=== PATIENT | female | born 1935 | race Caucasian/White ===

== ENCOUNTER → 2016-11-08 | Outpatient (CLI) | payer BC ==
[~2016-11-08] MED LIST: AMLO5TAB2 PO; ASPI81TA28 PO; CETI10TA84 PO; DVN80 PO; GLC/500 PO; MULTCHW PO; NSNN50 NAE; NXM/40 PO; OMEG12006 PO; PSYL55.43 PO; SIMV20TA2 PO; TPRSR25 PO
[2016-11-08 13:31] LABS: BASO % 0.2 %; BASO ABS # 0.02 K/uL (0-0.2); COMPLETE YES; EOS % 0.4 %; HEMATOCRIT 38.8 % (37-47); IG% 0.1 %; LYMPH % 29.3 %; LYMPH ABS # 2.37 K/uL (1.2-3.4); MEAN CELL VOLUME 83.3 fL (80-100); MEAN CORPUSCULAR HEMOGLOBIN 26.6 pg (25-34); MEAN PLATELET VOLUME 11.2 fL (7.4-10.4); MONO % 6.9 %; NEUT % 63.1 %; PLATELET COUNT 260 K/uL (130-400); RED BLOOD COUNT 4.66 M/uL (4.2-5.4); WHITE BLOOD COUNT 8.08 K/uL (4.8-10.8)
[2016-11-08 13:37] LABS: ESTIMATED AVERAGE GLUCOSE 126 mg/dl; HA1C FLAG Normal (Normal)
[2016-11-08 13:41] LABS: BLOOD UREA NITROGEN 13 mg/dl (7-18); CREATININE 0.95 mg/dl (0.60-1.20)
[2016-11-08 13:51] LABS: THYROID STIMULATING HORMONE 0.731 uIu/ml (0.300-4.500)
[2016-11-08 14:21] LABS: LYME DISEASE AB IGM NEG (NEG)
[2016-11-08 14:24] LABS: LYME DISEASE AB IGG NEG (NEG)
[2016-11-08 23:47] LABS: RAPID PLASMA REAGIN NONREACTIVE (NONREACT)
--- NOTE | 2016-11-14 11:04 | CODING QUERY MEDICAL NECESSITY ---
SUPPORTING DIAGNOSIS NEEDED Dr. Lechuga, A supporting diagnosis is required for the test/procedure performed on this patient in order for us to be reimbursed by the patient's insurance. Please provide a supporting diagnosis for the following test/procedure listed below next to the test name along with your signature. *If there is no additional diagnosis for this patient that would support the following test/procedure please document that below next to the test/procedure. Test(s)/Procedure(s) that require a supporting diagnosis: * ([id number]) B12 VITAMIN LEVEL DIAGNOSIS: DATE OF SERVICE: 11/08/16 Provider Signature: Date: Thank you Ramsey [facility] Information Management Once completed, please kindly fax back to [phone] For questions please call [phone]
== END | disposition home or self-care (01) ==
LOC: C.LABBC 11:03
PROVIDERS: ATTEND Psychiatry & Neurology Neurology
DX: Z00.00 Encounter for general adult medical examination without abnormal findings (principal); E11.9 Type 2 diabetes mellitus without complications; I10 Essential (primary) hypertension; E87.1 Hypo-osmolality and hyponatremia; F09 Unspecified mental disorder due to known physiological condition; R48.2 Apraxia

== ENCOUNTER → 2016-11-10 | Outpatient (CLI) | payer BC ==
[~2016-11-10] MED LIST changes: +GADAVIST IV PRN
--- NOTE | 2016-11-10 11:48 | DIAGNOSTIC IMAGING REPORT ---
MRI OF THE BRAIN WITHOUT AND WITH IV CONTRAST CLINICAL HISTORY: Gait apraxia. COMPARISON STUDY: MRI of the brain April 06, 2016. TECHNIQUE: Utilizing a 1.5 Amina magnet and dedicated coil, multiplanar, multiecho imaging of the brain was performed pre and postcontrast administration. IV administration of 7 mL of Gadavist contrast was uneventful. FINDINGS: There are no areas of restricted diffusion. No acute intracranial hemorrhage, midline shift or mass effect is present. Ventricular system is normal for age. Basilar cisterns are patent. There are no extra-axial collections. Flow-voids for the major intracranial vessels are present. No intracranial mass or pathologic enhancement is present. Multiple white matter T2 hyperintense foci are noted. Minimal progression is noted since prior MRI. The findings suggest small vessel disease. There is mild atrophy. Calvarial signal is maintained. Orbits and sinuses are unremarkable. IMPRESSION: 1. No acute intracranial findings. 2. No intracranial masses or pathologic enhancement. 3. Mild atrophy and moderate small vessel disease. Electronically signed by: Maximo Matthew M.D. 11/10/2016 11:46 AM Dictated Date/Time: 11/10/2016 11:42 AM
== END | disposition home or self-care (01) ==
LOC: C.MRIBC 10:31
PROVIDERS: ATTEND Psychiatry & Neurology Neurology
DX: R48.2 Apraxia (principal)

== ENCOUNTER → 2017-02-01 | Outpatient (CLI) | payer BC ==
[~2017-02-01] MED LIST changes: -GADAVIST IV PRN
[2017-02-01 14:16] LABS: ESTIMATED AVERAGE GLUCOSE 120 mg/dl; HA1C FLAG Normal (Normal)
[2017-02-01 15:02] LABS: BLOOD UREA NITROGEN 14 mg/dl (7-18); BUN/CREATININE RATIO 14.4 (10-20); CALCIUM 9.6 mg/dl (8.5-10.1); CARBON DIOXIDE 27 mmol/L (21-32); CHLORIDE 101 mmol/L (98-107); CREATININE 0.94 mg/dl (0.60-1.20); GLUCOSE 99 mg/dl (70-99); POTASSIUM 4.3 mmol/L (3.5-5.1); SODIUM 134 mmol/L (136-145)
== END | disposition home or self-care (01) ==
LOC: C.LABBC 10:58
PROVIDERS: ATTEND Internal Medicine Geriatric Medicine
DX: E11.9 Type 2 diabetes mellitus without complications (principal); I10 Essential (primary) hypertension

== ENCOUNTER → 2017-04-19 | Outpatient (CLI) | payer BC | END | disposition home or self-care (01) | LOC: C.LAB1850 10:34 | PROVIDERS: ATTEND Obstetrics & Gynecology | DX: N83.209 Unspecified ovarian cyst, unspecified side (principal) ==

== ENCOUNTER → 2017-04-23 | Outpatient (CLI) | payer BC ==
--- NOTE | 2017-04-24 07:43 | MAMMOGRAPHY REPORT ---
BILATERAL DIGITAL SCREENING MAMMOGRAM WITH CAD: 04/23/2017 CLINICAL HISTORY: Routine screening. Patient has no complaints. TECHNIQUE: Bilateral CC and MLO views were obtained. Current study was also evaluated with a Compute r Aided Detection (CAD) system. COMPARISON: Comparison is made to exams dated: 03/30/2016 mammogram, 03/29/2015 mammogram, 04/14/2014 mammogram, 03/27/2014 mammogram, 03/14/2013 mammogram, and 03/12/2012 mammogram - [facility]. BREAST COMPOSITION: There are scattered areas of fibroglandular density in both breasts. FINDINGS: The exam is suboptimal due to inability of the patient to adequately position for the exam , despite assistance from a second cath lab technologist. Within this limitation, there are moder ate vascular calcifications in the breasts, and a stable biopsy marker clip in the left upper outer q uadrant posteriorly. A few scattered benign-appearing microcalcifications. Decreased prominence of a nodular asymmetry in the right breast along the posterior nipple line on the CC view. No new suspi cious mass, architectural distortion or cluster of microcalcifications is seen. IMPRESSION: ACR BI-RADS CATEGORY 2: BENIGN There is no mammographic evidence of malignancy, within the limitations of the exam. A 1 year screeni ng mammogram is recommended. The patient will receive written notification of the results. Approximately 10% of breast cancers are not detected with mammography. A negative mammographic report should not delay biopsy if a clinically suggestive mass is present. Mague Harrison M.D. ay/:04/23/2017 16:48:50 Automation Developer: Sabine CUMMINGS(Carmina)(Gianni)(BD), [facility] letter sent: Normal 1/2 BI-RADS Code: ACR BI-RADS Category 2: Benign
== END | disposition home or self-care (01) ==
LOC: C.MAMM 15:40
PROVIDERS: ATTEND Internal Medicine Geriatric Medicine
DX: Z12.31 Encounter for screening mammogram for malignant neoplasm of breast (principal)

== ENCOUNTER 2017-10-19 14:52 | Emergency (ER) | payer BC ==
[2017-10-19 14:55] VITALS: TEMP 36.6
--- NOTE | 2017-10-19 15:00 | EMERGENCY ROOM VISIT NOTE ---
ED Visit Note First contact with patient: 14:58 I have seen and examined this patient with Tico Valentine and generally agree with the treatment plan as discussed. Problem List Medical Problems: (1) Benign hypertension Status: Chronic (2) Cholecystectomy Status: Resolved (3) Diabetes mellitus Status: Chronic (4) Hemorrhoid Status: Resolved Current/Historical Medications Scheduled Amlodipine Besylate (Norvasc), 5 MG PO DAILY Aspirin (Aspirin Ec), 81 MG PO Q2D Cetirizine (Zyrtec), 10 MG PO DAILY Esomeprazole Magnesium (Nexium), 40 MG PO DAILY Metformin Hcl (Glucophage), 500 MG PO BID Metoprolol Succinate (Metoprolol Succinate ER), 25 MG PO BID Mometasone Furoate (Nasal) (Nasonex), 1 SPRAY KEE DAILY Multiple Vitamins W/ Minerals (Centrum Silver), 1 TAB PO DAILY Obion-3 Fatty Acids (Obion 3), 1 CAP PO QAM Psyllium (Metamucil Powder), 1 PACK PO DAILY Simvastatin (Zocor), 20 MG PO QPM Valsartan (Diovan), 80 MG PO DAILY Allergies Coded Allergies: Amoxicillin (Unverified Allergy, Unknown, diarrhea, 05/04/16) Ciprofloxacin (Verified Adverse Reaction, Unknown, nausea/vomiting, ) Hydrocodone (Verified Adverse Reaction, Unknown, n/v loss of appetite, ) Vital Signs Date Time Temp Pulse Resp B/P (MAP) Pulse Ox O2 Delivery O2 Flow Rate FiO2 10/19/17 14:55 36.6 72 18 151/67 97 Room Air Departure Information Referrals Emiliano Lechuga M.D. (PCP) Patient Instructions My [facility]
[2017-10-19] MEDS ORDERED: CYAN10005 PO (15:27)
[2017-10-19] MEDS ORDERED: FLUT0.15 NAE (15:27)
[2017-10-19] MEDS ORDERED: VALS40TA2 PO (15:27)
[2017-10-19] MEDS ORDERED: CHOL1CAP12 PO (15:27)
[2017-10-19] MEDS ORDERED: ATOR10TA82 PO (15:27)
[2017-10-19] MEDS ORDERED: PANT40TA PO (15:27)
[2017-10-19] MEDS ORDERED: ARTISOL23 MT (15:27)
[2017-10-19] MEDS ORDERED: MULT-116 PO (15:27)
--- NOTE | 2017-10-19 15:38 | DIAGNOSTIC IMAGING REPORT ---
R TIBIA/FIBULA 2 VIEWS ROUTINE, R KNEE 3 VIEWS HISTORY: 82 years-old Female R knee/leg pain acute right knee, tibia and fibula pain COMPARISON: None available TECHNIQUE: 3 views of the right knee with 2 views of the right tibia and fibula FINDINGS: KNEE: The bones appear mildly demineralized. Tricompartmental osteoarthritis, moderate within the medial compartment, mild to moderate patellofemoral and mild lateral compartment disease. Svmjj-an-ktkfgnfq knee joint effusion with mild soft tissue swelling about the knee. No acute fracture or dislocation is identified. Peripheral arterial calcifications are noted. TIBIA/FIBULA: No acute fracture or dislocation. Degenerative changes about the ankle. Moderate soft tissue swelling about the mid and lower leg and ankle. Limited study secondary to oblique positioning on the lateral view. IMPRESSION: 1. Soft tissue swelling without acute fracture or dislocation. 2. Tjffj-ee-mjvuamqh knee joint effusion. The above report was generated using voice recognition software. It may contain grammatical, syntax or spelling errors. Electronically signed by: J Carlos Rosa M.D. 10/19/2017 3:37 PM Dictated Date/Time: 10/19/2017 3:31 PM
--- NOTE | 2017-10-19 16:22 | EMERGENCY ROOM VISIT NOTE ---
History First contact with patient: 14:58 Chief Complaint: LEG PAIN,LEG INJURY Stated Complaint: FT LEG PAIN History of Present Illness The patient is a 82 year old female who presents to the Emergency Room with her with complaints of right knee and leg pain. The patient reports that she was trying to get into a pickup when her right foot slipped, and she fell, twisting her knee. She denies hitting her head, and denies any other injuries to her upper extremities, neck or back. She rates her discomfort a 5 out of 10. The patient denies any prior history of right knee surgeries. Review of Systems 10 system review was performed and was negative except for pertinent positives and negatives as indicated in history of present illness Past Medical/Surgical History Medical Problems: (1) Benign hypertension (2) Cholecystectomy (3) Diabetes mellitus (4) Hemorrhoid Family History Gallbladder disease Heart disease Hypertension Social History Smoking Status: Never Smoker Alcohol Use: none Drug Use: none Marital Status: in relationship Housing Status: lives with significant other Occupation Status: retired Current/Historical Medications Scheduled Artificial Saliva (Mouthkote), 1 SPRAY MT Before Meals Atorvastatin (Lipitor), 10 MG PO HS Cholecalciferol (D3), 400 UNITS PO DAILY Cyanocobalamin (Vitamin B-12), 1,000 MCG PO DAILY Fluticasone Propionate (Nasal) (Flonase Allergy Relief), 1 SPRAY KEE QD@1700 Metoprolol Succinate (Metoprolol Succinate ER), 25 MG PO BID Multiple Vitamins W/ Minerals (Theragran-M), 1 TAB PO QD@1700 Pantoprazole Sodium (Protonix), 40 MG PO QD@1700 Valsartan (Diovan), 80 MG PO DAILY Valsartan (Diovan), 40 MG PO QD@1800 Physical Exam Vital Signs Date Time Temp Pulse Resp B/P (MAP) Pulse Ox O2 Delivery O2 Flow Rate FiO2 10/19/17 14:55 36.6 72 18 151/67 97 Room Air Physical Exam CONSTITUTIONAL: Healthy and well nourished. Alert and oriented X 3 with positive affect. Patient appears in mild discomfort. HEENT: Normocephalic, atraumatic. Pupils equal, round and reactive. No epistaxis, hemotympanum, subconjunctival hemorrhage, raccoon's eyes or arriaga sign. NECK: Full active range of motion without discomfort. RESPIRATORY: Clear to auscultation bilaterally with no wheezing, crackles, rhonchi or stridor. CARDIOVASCULAR: Regular rate and rhythm with no murmurs, rubs or gallops. GASTROINTESTINAL: Bowel sounds present in all quadrants. Soft and nontender to palpation. MUSCULOSKELETAL: Examination shows generalized discomfort to palpation of the right knee and proximal lateral leg. Patient has no focal tenderness over the medial joint line or peripatellar region. Range of motion was deferred on initial exam because of patient discomfort. Pedal pulses are intact. The patient has no tenderness to palpation through the distal leg, ankle or foot region. INTEGUMENTARY: No rash or other significant dermatologic conditions noted. NEUROLOGIC: No focal neurologic deficits noted. Right foot and toes are grossly sensory intact. Medical Decision & Procedures ER Provider Diagnostic Interpretation: My interpretation of right knee and tib-fib x-rays shows a moderate knee joint effusion, otherwise no other acute fractures or dislocation noted. Radiologist report is as follows: R TIBIA/FIBULA 2 VIEWS ROUTINE, R KNEE 3 VIEWS HISTORY: 82 years-old Female R knee/leg pain acute right knee, tibia and fibula pain COMPARISON: None available TECHNIQUE: 3 views of the right knee with 2 views of the right tibia and fibula FINDINGS: KNEE: The bones appear mildly demineralized. Tricompartmental osteoarthritis, moderate within the medial compartment, mild to moderate patellofemoral and mild lateral compartment disease. Wmbim-xj-bojkvajb knee joint effusion with mild soft tissue swelling about the knee. No acute fracture or dislocation is identified. Peripheral arterial calcifications are noted. TIBIA/FIBULA: No acute fracture or dislocation. Degenerative changes about the ankle. Moderate soft tissue swelling about the mid and lower leg and ankle. Limited study secondary to oblique positioning on the lateral view. IMPRESSION: 1. Soft tissue swelling without acute fracture or dislocation. 2. Ejfae-gt-xlawiskn knee joint effusion. ED Course Patient history and physical exam were performed. Nurse's notes were reviewed. Vital signs were reviewed and were normal. The patient refused any analgesics on initial exam. X-rays of the right knee and leg shows a moderate knee effusion, otherwise no other acute fractures or dislocations noted. X-ray findings were reviewed with the patient. A knee immobilizer was applied. The patient was encouraged to intermittently apply ice and elevate the leg/knee for swelling and pain. Ibuprofen or Tylenol as needed for pain. The patient was encouraged to follow-up with orthopedics for further reevaluation and management. The patient was happy with plan of care, voiced understanding of all discharge instructions, and rated her discomfort a 3 out of 10 at the conclusion of my exam. The patient was also evaluated by Dr. Mccoy, ED attending physician, who agrees with workup and plan of care. Medical Decision Medication Reconcilliation Current Medication List: was personally reviewed by me Blood Pressure Screening Patient's blood pressure: Normal blood pressure Impression Primary Impression: Right knee injury Additional Impression: Fall from slip, trip, or stumble Departure Information Referrals Emiliano Lechuga M.D. (PCP) Patient Instructions My [facility] Problem Qualifiers Primary Impression: Right knee injury Encounter type: initial encounter Qualified Codes: S89.91XA - Unspecified injury of right lower leg, initial encounter Additional Impression: Fall from slip, trip, or stumble Encounter type: initial encounter Qualified Codes: W01.0XXA - Fall on same level from slipping, tripping and stumbling without subsequent striking against object, initial encounter
[2017-10-19 16:23] VITALS: BP 142/95; PULSE 62; O2SAT 95
== END 2017-10-19 16:24 | disposition home or self-care (01) ==
LOC: C.EDB 14:53 → C.EDD 16:24
DX: M25.461 Effusion, right knee (principal); X50.1XXA Overexertion from prolonged static or awkward postures, initial encounter; W18.43XA Slipping, tripping and stumbling without falling due to stepping from one level to another, initial encounter; I10 Essential (primary) hypertension; E11.9 Type 2 diabetes mellitus without complications

== ENCOUNTER → 2017-11-02 | Day surgery (SDC) | payer BC ==
[2017-10-25 16:01] VITALS: BMI 22.0
[~2017-11-02] VITALS: Ht 172.7 cm; Wt 65.9 kg
[~2017-11-02] MED LIST changes: -AMLO5TAB2 PO; -ASPI81TA28 PO; +ATOR10TA82 PO; -CETI10TA84 PO; +CHOL1CAP12 PO; +CYAN10005 PO; +FLUT0.15 NAE; -GLC/500 PO; +LIDOCAINE HCL 2% 2 ML VIAL (20MG/ML) ONE; +MELO-83 PO; +MULT-116 PO; -MULTCHW PO; -NSNN50 NAE; -NXM/40 PO; -OMEG12006 PO; +PANT40TA PO; +PROPOFOL IV EMULSION 10 MG/ML 20 ML VIAL ONE; -PSYL55.43 PO; -SIMV20TA2 PO; +SNM/25100 PO; +VALS40TA2 PO
[2017-11-02 08:13] VITALS: Ht 172.7 cm; Wt 65.9 kg
--- NOTE | 2017-11-02 08:42 | Endo History and Physical ---
History & Physical Date of Service: November 02, 2017. Chief Complaint: DYSPHAGIA Referring Physician: EMILY VALERO History of Present Illness 82 yo CF who presents for EGD secondary to dysphagia. Past Medical History Diabetes, Arthritis, Reflux, Cancer, High Cholesterol, Hypertension Past Surgical History Hx Cardiac Surgery: No Hx Internal Defibrillator: No Hx Pacemaker: No Hx Abdominal Surgery: Yes (CHOLECYSTECTOMY (2003)) Hx of Implantable Prosthesis: No Hx Post-Op Nausea and Vomiting: No Hx Cancer Surgery: Yes (SKIN CANCER REMOVED OFF LEG) Hx Thoracic Surgery: No Hx Orthopedic: Yes (RIGHT KNEE ARTHROSCOPY) Hx Urinary Tract Surgery: No Family History None Social History Smoking Status: Never Smoker Hx Substance Use: No Hx Alcohol Use: No Allergies Coded Allergies: Atenolol (Verified Allergy, Mild, UNKNOWN, 10/29/17) Atorvastatin (Verified Allergy, Mild, GI SYMPTOMS, 10/29/17) Chlorthalidone (Verified Allergy, Mild, UNKNOWN, 10/29/17) Hydrochlorothiazide (Verified Allergy, Mild, GI SYMPTOMS, 10/29/17) Naproxen (Verified Allergy, Mild, GI SYMPTOMS, 10/29/17) Amoxicillin (Verified Allergy, Unknown, diarrhea, 11/02/17) Ciprofloxacin (Verified Adverse Reaction, Unknown, nausea/vomiting, ) Hydrocodone (Verified Adverse Reaction, Unknown, n/v loss of appetite, ) Current Medications Reported Home Medications Medications Dose Route/Sig Max Daily Dose Days Date Category Meloxicam 15 Mg Tab 1 Tab PO QAM 10/25/17 Reported Sinemet 25MG/100MG (Carbidopa/Levodopa) 1 Ea Tab 0.5 Tab PO TID 10/25/17 Reported Diovan (Valsartan) 40 Mg Tab 40 Mg PO QD@1800 10/19/17 Reported Theragran-M (Multiple Vitamins W/ Minerals) 1 Tab Tab 1 Tab PO QD@1700 10/19/17 Reported Protonix (Pantoprazole Sodium) 40 Mg Tab 40 Mg PO QD@1700 10/19/17 Reported Flonase Allergy Relief (Fluticasone Propionate (Nasal)) 50 Mcg/Act Spr 1 [place] KEE QD@1700 10/19/17 Reported Vitamin B-12 (Cyanocobalamin) 1,000 Mcg Tab 1,000 Mcg PO DAILY 10/19/17 Reported D3 (Cholecalciferol) 400 Unit Cap 400 Units PO DAILY 10/19/17 Reported Lipitor (Atorvastatin Calcium) 10 Mg Tab 10 Mg PO HS 10/19/17 Reported Diovan (Valsartan) 80 Mg Tab 80 Mg PO DAILY 12/12/15 Reported Metoprolol Succinate ER (Metoprolol Succinate) 25 Mg Tabcr 25 Mg PO BID 12/12/15 Reported Vital Signs Weight (Kilograms): 65.91 Height (Feet): 5 Height (Inches): 8 Date Time Temp Pulse Resp B/P (MAP) Pulse Ox O2 Delivery O2 Flow Rate FiO2 11/02/17 08:24 36.5 56 18 153/68 (96) 98 Room Air Physical Exam General Appearance: WD/WN, no apparent distress Respiratory/Chest: Auscultation: breath sounds normal Cardiovascular: Heart Auscultation: RRR Abdomen: Bowel Sounds: normal Inspection & Palpation: soft, non-distended, no tenderness, guarding & rebound Assessment and Plan Assessment: 82 yo CF who presents for EGD secondary to dysphagia. Plan: Proceed with EGD.
--- NOTE | 2017-11-02 09:40 | Discharge Instructions ---
Endoscopy Patient Instructions Date / Procedure(s) Performed November 02, 2017. EGD Allergy Information Coded Allergies: Atenolol (Verified Allergy, Mild, UNKNOWN, 10/29/17) Atorvastatin (Verified Allergy, Mild, GI SYMPTOMS, 10/29/17) Chlorthalidone (Verified Allergy, Mild, UNKNOWN, 10/29/17) Hydrochlorothiazide (Verified Allergy, Mild, GI SYMPTOMS, 10/29/17) Naproxen (Verified Allergy, Mild, GI SYMPTOMS, 10/29/17) Amoxicillin (Verified Allergy, Unknown, diarrhea, 11/02/17) Ciprofloxacin (Verified Adverse Reaction, Unknown, nausea/vomiting, ) Hydrocodone (Verified Adverse Reaction, Unknown, n/v loss of appetite, ) Discharge Date / Findings November 02, 2017. Schatzki's Ring s/p dilation Hiatal hernia Medication Instructions OK to resume all medications today as prescribed Reported Home Medications Medications Dose Route/Sig Max Daily Dose Days Date Category Meloxicam 15 Mg Tab 1 Tab PO QAM 10/25/17 Reported Sinemet 25MG/100MG (Carbidopa/Levodopa) 1 Ea Tab 0.5 Tab PO TID 10/25/17 Reported Diovan (Valsartan) 40 Mg Tab 40 Mg PO QD@1800 10/19/17 Reported Theragran-M (Multiple Vitamins W/ Minerals) 1 Tab Tab 1 Tab PO QD@1700 10/19/17 Reported Protonix (Pantoprazole Sodium) 40 Mg Tab 40 Mg PO QD@1700 10/19/17 Reported Flonase Allergy Relief (Fluticasone Propionate (Nasal)) 50 Mcg/Act Spr 1 [place] KEE QD@1700 10/19/17 Reported Vitamin B-12 (Cyanocobalamin) 1,000 Mcg Tab 1,000 Mcg PO DAILY 10/19/17 Reported D3 (Cholecalciferol) 400 Unit Cap 400 Units PO DAILY 10/19/17 Reported Lipitor (Atorvastatin Calcium) 10 Mg Tab 10 Mg PO HS 10/19/17 Reported Diovan (Valsartan) 80 Mg Tab 80 Mg PO DAILY 12/12/15 Reported Metoprolol Succinate ER (Metoprolol Succinate) 25 Mg Tabcr 25 Mg PO BID 12/12/15 Reported Provider Instructions Activity Restrictions - No exercising or heavy lifting for 24 hours. - Do not drink alcohol the day of the procedure. - Do not drive a car or operate machinery until the day after the procedure. - Do not make any important decisions or sign important papers in 24 hours after the procedure. Following Day: - Return to full activity which may include returning to work/school. Diet Start your diet with liquids and light foods (jello, soup, juice, toast). Then eat your usual diet if not nauseated. Treatment For Common After Affects For mild abdominal pain, bloating, or excessive gas: - Rest - Eat lightly - Lie on right side Follow-Up Information Follow-up with EMILY VALERO as scheduled Anesthesia Information What You Should Know You have had a procedure that required some medicine to reduce anxiety and discomfort. This treatment is called moderate sedation. After receiving the treatment, you may be sleepy, but you will be able to breathe on your own. The effects of the treatment may last for several hours. Follow these instructions along with Activity/Diet recommendations noted above: * Do NOT do anything where dizziness or clumsiness would be dangerous. * Rest quietly at home today, then you can be up and about tomorrow. * Have a responsible person stay with you the rest of today. * You may have had an I.V. today. If so, you may take the dressing off later today. Recommendations Call your doctor if: * Trouble breathing * Continuous vomiting for more than 24 hours * Temperature above 101 degrees * Severe abdominal pain or bloating * Pain not relieved by pain medicine ordered * There is increased drainage or redness from any incision * A large amount of rectal bleeding greater than 2-3 tablespoons. (If you had a polyp/s removed or have hemorrhoids, a small amount of blood - from the rectum is to be expected.) * You have any unanswered questions or concerns. IN THE EVENT OF A SERIOUS EMERGENCY, GO TO THE NEAREST EMERGENCY ROOM Your discharge instructions were prepared by provider Blane López. Patient Instructions Signature Page Lety Becerra Patient (or Guardian) Signature/Date: I have read and understand the instructions given to me by my caregivers. Caregiver/RN/Doctor Signature/Date: The above-named patient and/or guardian has received patient instructions on this date. + Original Patient Signature Page (only) stays with chart. Please make copy for patient.
--- NOTE | 2017-11-02 09:50 | GI REPORT ---
Patient Name: Lety Becerra Procedure Date: 11/02/2017 9:14 AM Date of : 1935 Admit Type: Outpatient Age: 82 Gender: Female Attending MD: Blane López DO Procedure: Upper GI endoscopy Providers: Blane López DO Referring MD: Emiliano Lechuga Indications: Dysphagia Medicines: Monitored Anesthesia Care Complications: No immediate complications. Estimated Blood Loss: Estimated blood loss: none. Procedure: Pre-Anesthesia Assessment: - Prior to the procedure, a History and Physical was performed, and patient medications and allergies were reviewed. The patient's tolerance of previous anesthesia was also reviewed. The risks and benefits of the procedure and the sedation options and risks were discussed with the patient. All questions were answered, and informed consent was obtained. Prior Anticoagulants: The patient has taken no previous anticoagulant or antiplatelet agents. ASA Grade Assessment: III - A patient with severe systemic disease. After reviewing the risks and benefits, the patient was deemed in satisfactory condition to undergo the procedure. After obtaining informed consent, the endoscope was passed under direct vision. Throughout the procedure, the patient's blood pressure, pulse, and oxygen saturations were monitored continuously. The scope was introduced through the mouth, and advanced to the second part of duodenum. The upper GI endoscopy was accomplished without difficulty. The patient tolerated the procedure well. Findings: A moderate Schatzki ring (acquired) was found at the gastroesophageal junction. A TTS dilator was passed through the scope. Dilation with a 15-16.5-18 mm balloon and an 18-19-20 mm balloon dilator was performed to 20 mm. A small hiatal hernia was present. The examined duodenum was normal. Impression: - Moderate Schatzki ring. Dilated. - Small hiatal hernia. - Normal examined duodenum. - No specimens collected. Recommendation: - Resume previous diet. - Continue present medications. - Repeat upper endoscopy PRN for retreatment. - Return to primary care physician as previously scheduled. Blane López DO 11/02/2017 9:50:28 AM This report has been signed electronically. Note Initiated On: 11/02/2017 9:14 AM Number of Addenda: 0 I attest to the content of the Intraoperative Record and orders documented therein, exceptions below {[id number]}
[2017-11-02 10:06] VITALS: BP 171/73; PULSE 18; O2SAT 98
--- NOTE | 2017-11-02 10:31 | Anesthesiology Progress Note ---
Anesthesia Post Op Note Date & Time November 02, 2017 at 10:31 Vital Signs Pain Intensity: 0 Vital Signs Past 12 Hours Date Time Temp Pulse Resp B/P (MAP) Pulse Ox O2 Delivery O2 Flow Rate FiO2 11/02/17 10:06 18 55 171/73 (105) 98 Room Air 11/02/17 09:51 16 60 146/78 (100) 98 Room Air 11/02/17 09:36 16 52 126/60 (82) 98 Room Air 11/02/17 08:24 36.5 56 18 153/68 (96) 98 Room Air Notes Mental Status: alert / awake / arousable, participated in evaluation Pt Amnestic to Procedure: Yes Nausea / Vomiting: adequately controlled Pain: adequately controlled Airway Patency, RR, SpO2: stable & adequate BP & HR: stable & adequate Hydration State: stable & adequate Anesthetic Complications: no major complications apparent
== END | disposition home or self-care (01) ==
LOC: C.GI 07:43
PROVIDERS: ATTEND Internal Medicine
DX: R13.10 Dysphagia, unspecified (principal); K44.9 Diaphragmatic hernia without obstruction or gangrene; K22.2 Esophageal obstruction; E11.9 Type 2 diabetes mellitus without complications; M19.90 Unspecified osteoarthritis, unspecified site; K21.9 Gastro-esophageal reflux disease without esophagitis; E78.00 Pure hypercholesterolemia, unspecified; I10 Essential (primary) hypertension; Z90.49 Acquired absence of other specified parts of digestive tract; Z85.828 Personal history of other malignant neoplasm of skin; Z88.5 Allergy status to narcotic agent; Z88.0 Allergy status to penicillin; Z88.1 Allergy status to other antibiotic agents

== ENCOUNTER → 2018-01-08 | Outpatient (CLI) | payer BC ==
[~2018-01-08] MED LIST changes: +ACET-1256 PO; +CETI10TA84 PO; +CHOL1000 PO; -CHOL1CAP12 PO; -DVN80 PO; -FLUT0.15 NAE; -LIDOCAINE HCL 2% 2 ML VIAL (20MG/ML) ONE; +LOSA100T65 PO; -MELO-83 PO; +METO25TA3 PO; +MOME6000 NAE; -MULT-116 PO; +MULT1CHW42 PO; -PROPOFOL IV EMULSION 10 MG/ML 20 ML VIAL ONE; +SENN8.6T7 PO; -TPRSR25 PO; -VALS40TA2 PO
--- NOTE | 2018-01-08 10:23 | DIAGNOSTIC IMAGING REPORT ---
EXAMINATION: RENAL ULTRASOUND CLINICAL HISTORY: RT HYDRONEPHROSIS COMPARISON STUDY: CT scan dated 12/29/2017 FINDINGS: The right kidney measures 9.5 cm. The left kidney measures 9.7 cm. There is no evidence of hydronephrosis. There are no renal masses. No bladder abnormalities are visualized. Bilateral ureteral jets were visualized. IMPRESSION : 1. No renal masses identified 2. Slight prominence of the right renal pelvis but no evidence of significant hydronephrosis. Ureteral obstruction is unlikely to be present as bilateral ureteral jets were visualized. Electronically signed by: Ventura Melvin M.D. 01/08/2018 10:22 AM Dictated Date/Time: 01/08/2018 10:19 AM
== END | disposition home or self-care (01) ==
LOC: C.ULTRBC 09:29
PROVIDERS: ATTEND Family Medicine Adult Medicine
DX: N13.30 Unspecified hydronephrosis (principal)

== ENCOUNTER → 2018-01-15 | Outpatient (CLI) | payer BC | END | disposition home or self-care (01) | LOC: C.LABBC 08:56 | PROVIDERS: ATTEND Obstetrics & Gynecology | DX: N83.209 Unspecified ovarian cyst, unspecified side (principal) ==

== ENCOUNTER 2018-09-30 15:34 | Inpatient (IN) ==
[2018-09-30] MEDS ORDERED: ACETAMINOPHEN 325 MG TAB PO STA (16:14)
--- NOTE | 2018-09-30 16:44 | XRay Report ---
XR shoulder RT min 2V routine CLINICAL HISTORY: 83 years-old Female presenting with fall eval for fx. TECHNIQUE: Internal rotation, external rotation, Grashey views of the right shoulder were obtained. COMPARISON: Correlation made to plain radiographs of the right humerus from 07/15/2018. FINDINGS: Glenohumeral and acromioclavicular joints congruent. Allowing for suboptimal positioning of Grashey v iew, irregularity of the inferior bony glenoid is suggested. This may either be on a degenerative or posttraumatic basis. Underlying osteopenia is suspected. No other evidence to suggest acute fracture or malalignment. Mild degenerative changes of the acromioclavicular joint. IMPRESSION: Irregularity of the inferior bony glenoid, which may be on a degenerative or posttraumatic basis. Thi s was not definitively visualized on prior radiograph. If there is continuing symptomatology, further imaging with axillary and transscapular Y views of the right shoulder could be obtained. Electronically signed by: Arun Thomas M.D. 09/30/2018 4:43 PM
[2018-09-30] MEDS ORDERED: ACETAMINOPHEN 65 ML IV ONE (16:54)
[2018-09-30 16:59] LABS: Basophils # (auto) 0.02 K/uL (0-0.2); Basophils % (auto) 0.3 %; Eosinophils # (auto) 0.12 K/uL (0-0.5); Eosinophils % (auto) 1.8 %; Hematocrit (blood only) 37.2 % (37-47); Hemoglobin 12.2 g/dL (12.0-16.0); Immature Granulocytes # (auto) 0.05 K/uL (0.00-0.02); Immature Granulocytes % (auto) 0.8 %; Lymphocytes # (auto) 1.79 K/uL (1.2-3.4); Mean Corpuscular Hgb Conc 32.8 g/dL (32-36); Mean Corpuscular Volume 88.8 fL (80-100); Mean Platelet Volume 10.4 fL (7.4-10.4); Monocytes # (auto) 0.58 K/uL (0.11-0.59); Monocytes % (auto) 8.7 %; Neutrophils # (auto) 4.07 K/uL (1.4-6.5); Neutrophils % (auto) 61.4 %; Platelet Count 189 K/uL (130-400); RDW Coefficient of Variation 14.3 % (11.5-14.5); RDW Standard Deviation 46.5 fL (36.4-46.3); Red Blood Count 4.19 M/uL (4.2-5.4); White Blood Count 6.63 K/uL (4.8-10.8)
--- NOTE | 2018-09-30 17:09 | XRay Report ---
AP PELVIS ONE VIEW, RIGHT HIP 2 VIEWS HISTORY: Right hip pain. fall eval for fx COMPARISON: None. FINDINGS: There is no fracture or dislocation. Soft tissues are unremarkable. Mild osteoarthritis wit hin the bilateral hips. The bones are osteopenic. The sacrum appears intact. IMPRESSION: No fracture or dislocation within the pelvis or hips. Electronically signed by: Colten Brian M.D. 09/30/2018 5:08 PM
[2018-09-30 17:10] LABS: Partial Thromboplastin Ratio 0.9; Partial Thromboplastin Time 23.6 Seconds (21.0-31.0); Prothrombin Time 10.2 Seconds (9.0-12.0)
--- NOTE | 2018-09-30 17:11 | XRay Report ---
RIGHT HUMERUS 2 VIEWS HISTORY: Right arm pain. fall eval for fx COMPARISON: Right humerus 07/15/2018. FINDINGS: There is no fracture or dislocation. Soft tissues are unremarkable. No radiopaque foreign b odies. IMPRESSION: No fracture or dislocation within the right humerus. Electronically signed by: Colten Brian M.D. 09/30/2018 5:10 PM
[2018-09-30 17:16] LABS: BUN Creatinine Ratio 21.3 (10-20); Calcium 9.5 mg/dl (8.5-10.1); Creatinine Clr Calc Pharmacy 53.7 ml/min; Est GFR (African American) 70.4; Est GFR (Non-African American) 60.8
--- NOTE | 2018-09-30 19:10 | CT Scan Report ---
CT head/brain wo con CLINICAL HISTORY: 83 years-old Female presenting with fall eval for bleed. TECHNIQUE: Multidetector CT imaging of the head was performed without the use of intravenous contrast . IV contrast: None. One or more dose lowering techniques were used consistent with the principles of ALARA (as low as reasonably achievable), including automatic exposure control, mA or kV adjustment t o individual patient size, and/or use of iterative reconstruction. COMPARISON: 05/20/2018. CT DOSE (mGy.cm): The estimated cumulative dose is 2202.80. FINDINGS: Statement Clerk topogram: Unremarkable. Ventricles and sulci normal in size. No hemorrhage. Periventricular and subcortical white matter hypo attenuation, nonspecific but likely indicative of chronic small vessel ischemic change. No acute terr itorial infarct. No mass effect or midline shift. No extra-axial fluid collection. Paranasal sinuses and mastoid air cells clear. Calvarium intact. IMPRESSION: 1. Chronic small vessel ischemic change. No acute intracranial abnormality. Electronically signed by: Arun Thomas M.D. 09/30/2018 7:09 PM
--- NOTE | 2018-09-30 19:18 | CT Scan Report ---
CERVICAL SPINE CT CT DOSE: 2202.80 mGy.cm HISTORY: Neck pain. fall eval for fx TECHNIQUE: Multiaxial CT images of the cervical spine were performed and reformatted in the sagittal and coronal plane without the use of contrast. A dose lowering technique was utilized adhering to th e principles of ALARA. COMPARISON: Cervical spine CT 05/20/2018. FINDINGS: No fractures. 2 mm of anterolisthesis of C4 on C5 is likely due to long-standing degenerati ve change. Moderate disc space narrowing at C5-C6. Prevertebral soft tissues and the C1-C2 interval a re intact. No pneumothorax. Small bilateral thyroid nodules. The right C3-C4 and left C3-C5 facets ar e fused. IMPRESSION: No fractures within the cervical spine. Electronically signed by: Colten Brian M.D. 09/30/2018 7:17 PM
[2018-09-30] MEDS ORDERED: ONDANSETRON INJ 2 MG/ML 2 ML VIAL IV STA (20:43)
[2018-09-30] MEDS ORDERED: MoRPHine SULFATE 2 MG/ML CARP IV STA ×2 (20:43→21:39)
--- NOTE | 2018-09-30 21:33 | XRay Report ---
XR lumbar spine 2-3V CLINICAL HISTORY: 83 years-old Female presenting with fall eval for fx. TECHNIQUE: Frontal, lateral, and coned-down lateral views of the lumbar spine were obtained. COMPARISON: Correlation made to CT of the lumbar spine from 05/20/2018. FINDINGS: No scoliosis. Slightly exaggerated lumbar lordosis. Severe anterior vertebral body height loss of T12 , which is new since prior CT. Moderate height loss of T11 also suspected. There is also mild anterio r vertebral body height loss of L3 new since prior CT. Osteopenia is apparent. No gross evidence of r etropulsion of the posterior cortices of these vertebral bodies. No radiographic evidence of osseous neural foraminal narrowing. Cholecystectomy clips noted. Marked stool burden throughout the colon. IMPRESSION: 1. Severe compression fracture of T11 new since 2018. Moderate compression fracture of T12 and mild compression fracture of L3 also new since prior CT. Electronically signed by: Arun Thomas M.D. 09/30/2018 9:31 PM
--- NOTE | 2018-09-30 22:08 | History & Physical Report ---
Date of Service September 30, 2018 Assessment & Plan (1) Compression fx, lumbar spine: 83 y/o F Hx HTN, HLD, dementia, GERD, Parkinson's. Presents after a mechanical fall where she landed on her back side and could not ambulate following. She was sent to the ER where compression fractures of T11, T12 and L3 were confirmed. She is unable to provide a detailed history. The ER attending had initially intended to transfer the pt directly to acute rehab, however, the facility was not able to accommodate the request. She is therefore assigned to observation due to gait dysfunction and pending rehab. She is unable to effectively communicate due to her Parkinson's and likely dementia. 1) Compression fractures leading to an unstable gait - PT/OT and plan for transfer to rehab AM - analgesics provided. 2) Parkinison's - cont Sinemet 3) HTN - cont Metoprolol, Telmisartan 4) HLD - cont Atorvastatin 5) GERD - cont Pantoprazole Full code - SCDs Total time for this admit including review of labs, meds, imaging, records - discussion with pt and ER attending - 36 min (2) Compression fx, thoracic spine: History of Present Illness Primary Care Provider: NOREEN Beckwith 83 y/o F Hx HTN, HLD, dementia, GERD, Parkinson's. Presents after a mechanical fall where she landed on her back side and could not ambulate following. She was sent to the ER where compression fractures of T11, T12 and L3 were confirmed. She is unable to provide a detailed history. The ER attending had initially intended to transfer the pt directly to acute rehab, however, the facility was not able to accommodate the request. She is therefore assigned to observation due to gait dysfunction and pending rehab. She is unable to effectively communicate due to her Parkinson's and likely dementia. PMH: 1) HLD 2) HTN 3) GERD 4) Dementia 5) Parkinson's 6) esophageal stricture requiring dilitation 7) OA Surgical: 1) cholecystectomy Social: Does not drink or smoke Family: Could not provide Allergies Allergy/AdvReac Type Severity Reaction Status Date / Time Penicillins Allergy Intermediate Unknown Verified 09/02/18 16:09 atenolol Allergy Mild UNKNOWN Verified 09/02/18 16:09 chlorthalidone Allergy Mild UNKNOWN Verified 09/02/18 16:09 atorvastatin AdvReac Mild GI SYMPTOMS Verified 09/02/18 16:09 hydrochlorothiazide AdvReac Mild GI SYMPTOMS Verified 09/02/18 16:09 naproxen AdvReac Mild GI SYMPTOMS Verified 09/02/18 16:09 amoxicillin AdvReac Unknown diarrhea Verified 09/02/18 16:09 Cipro AdvReac Unknown nausea/vomi Verified 12/29/17 07:49 ting ciprofloxacin AdvReac Unknown nausea/vomi Verified 09/02/18 16:09 ting hydrocodone AdvReac Unknown n/v loss Verified 09/02/18 16:09 of appetite Home Medications Home Medications Medication Instructions Recorded Confirmed Type Zyrtec 10 mg PO DIRECTED PRN 06/30/18 09/30/18 History acetaminophen [Tylenol Extra 1,000 mg PO TID PRN 06/30/18 09/30/18 History Strength] atorvastatin 10 mg PO DAILY 06/30/18 09/30/18 History carbidopa-levodopa 1 tab PO QID 06/30/18 09/30/18 History cholecalciferol (vitamin D3) 2,000 unit PO QAM 06/30/18 09/30/18 History [Vitamin D3] mometasone 2 spray INTRANASAL DAILY 06/30/18 09/30/18 History pantoprazole 40 mg PO QPM 06/30/18 09/30/18 History sennosides-docusate sodium 2 tab PO DAILY PRN 06/30/18 09/30/18 History [Senokot-S] telmisartan 80 mg PO 1200 06/30/18 09/30/18 History vitamin [id number] acid 3,000 mcg PO DIRECTED 06/30/18 09/30/18 History metoprolol tartrate 25 mg PO BID 07/25/18 09/30/18 History cranberry 500 mg PO BID 09/02/18 09/30/18 History econazole 1 applic TOPICAL QID 09/30/18 09/30/18 History Past Med/Surg History Medical History Hypercholesterolemia Parkinson disease GERD (gastroesophageal reflux disease) HTN (hypertension) Hemorrhoid (Resolved) Cancer SKIN CANCER, REMOVED. Chronic back pain Confusion AT TIMES. POSSIBLE EARLY STAGES OF DEMENTIA History of esophageal dilatation Last one 10/2017 Propofol 120mg, Lidocaine 40mg IV Hyperlipidemia Osteoarthritis Surgical History History of arthroscopy KNEE (UNSURE OF SIDE) History of cholecystectomy History of colonoscopy History of esophagogastroduodenoscopy (EGD) Family History Other Family history non-contributory Social History Preferred Language: German Communication Ability: Effective Beliefs That Will Affect Care: None Current Living Situation Comment: Lives with friend current occupational status: retired Feels Safe at Home: Yes Smoking Status: Never smoker Second Hand Exposure: No Hx Alcohol Use: No Hx Substance Use: No Review of Systems Review of Systems: Gen: Denies fevers, night sweats, rigors, fatigue, malaise, weight loss/gain ENT: Denies congestion, throat pain, hearing loss Eyes: Denies acute visual changes CV: Denies CP, palpitations Pulmonary: Denies SOB, cough, wheezing GI: Denies N/V, diarrhea, constipation Neuro: Denies acute or unilateral weakness, acute gait impairment, headache or acute visual changes Musculoskeletal: Denies joint pain, inflammation Endocrine: Denies polydipsia, polyuria Skin: Denies acute rashe or ulcers Physical Exam Physical Exam: General: AAO x 3, no distress ENT: No erythema or exudates, no thrush Eyes: WARREN, EOMI Head and neck: Normocephalic, atraumatic, No JVD, neck is supple. Chest/heart: Nontender, S1,2, RRR, no murmurs, no gallops Lungs: CTAB, no wheezing or crackles Abdomen: Nontender, nondistended, BS+ Neuro: AAO x 3, speech is clear, no unilateral weakness or loss of sensation, coordination intact Musculoskeletal: No joint inflammation, muscle tenderness, FROM Skin: No acute rashes or ulcers Extremities: No clubbing, cyanosis, edema Results & Data Vital Signs (Past 12 Hours) Vital Signs Temp Pulse Pulse Resp BP BP Pulse Ox 09/30/18 21:55 83 18 202/83 H 96 09/30/18 20:22 73 18 173/8 H 95 09/30/18 17:34 59 L 20 178/89 H 96 09/30/18 15:44 97.7 F 67 22 180/71 H 96 (1) Compression fx, lumbar spine Encounter type: initial encounter Fracture type: closed Lumbar vertebra fracture level: L3 Qualified Code(s): S32.030A - Wedge compression fracture of third lumbar vertebra, initial encounter for closed fracture (2) Compression fx, thoracic spine Encounter type: initial encounter Fracture type: closed Qualified Code(s): S22.000A - Wedge compression fracture of unspecified thoracic vertebra, initial encounter for closed fracture
--- NOTE | 2018-09-30 22:13 | Emergency Department Note ---
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 The patient is difficult to understand at baseline secondary to "Parkinsonism." The patient's significant other at bedside describes that the patient was trying to get out of the bathroom doorway using her walker but was not holding onto the walker tightly enough. She lost supervisor blooming mill of the walker and fell directly backwards. The patient did hit the back of her head on the ground, but denies losing consciousness at any time. She is currently complaining of pain to her right shoulder and right hip, though she states that the right hip does not bother her anymore. The patient denies any abdominal pain, back pain, headache, chest pain, numbness or weakness. The patient is not on any anticoagulation therapy. Home Medications Home Medications Medication Instructions Recorded Confirmed Type Zyrtec 10 mg PO DIRECTED PRN 06/30/18 09/30/18 History acetaminophen [Tylenol Extra 1,000 mg PO TID PRN 06/30/18 09/30/18 History Strength] atorvastatin 10 mg PO DAILY 06/30/18 09/30/18 History carbidopa-levodopa 1 tab PO QID 06/30/18 09/30/18 History cholecalciferol (vitamin D3) 2,000 unit PO QAM 06/30/18 09/30/18 History [Vitamin D3] mometasone 2 spray INTRANASAL DAILY 06/30/18 09/30/18 History pantoprazole 40 mg PO QPM 06/30/18 09/30/18 History sennosides-docusate sodium 2 tab PO DAILY PRN 06/30/18 09/30/18 History [Senokot-S] telmisartan 80 mg PO 1200 06/30/18 09/30/18 History vitamin [id number]-[id number] acid 3,000 mcg PO DIRECTED 06/30/18 09/30/18 History metoprolol tartrate 25 mg PO BID 07/25/18 09/30/18 History cranberry 500 mg PO BID 09/02/18 09/30/18 History econazole 1 applic TOPICAL QID 09/30/18 09/30/18 History Allergies Allergy/AdvReac Type Severity Reaction Status Date / Time Penicillins Allergy Intermediate Unknown Verified 09/02/18 16:09 atenolol Allergy Mild UNKNOWN Verified 09/02/18 16:09 chlorthalidone Allergy Mild UNKNOWN Verified 09/02/18 16:09 atorvastatin AdvReac Mild GI SYMPTOMS Verified 09/02/18 16:09 hydrochlorothiazide AdvReac Mild GI SYMPTOMS Verified 09/02/18 16:09 naproxen AdvReac Mild GI SYMPTOMS Verified 09/02/18 16:09 amoxicillin AdvReac Unknown diarrhea Verified 09/02/18 16:09 Cipro AdvReac Unknown nausea/vomi Verified 12/29/17 07:49 ting ciprofloxacin AdvReac Unknown nausea/vomi Verified 09/02/18 16:09 ting hydrocodone AdvReac Unknown n/v loss Verified 09/02/18 16:09 of appetite Past Med/Surg History Medical History Hypercholesterolemia Parkinson disease GERD (gastroesophageal reflux disease) HTN (hypertension) Hemorrhoid (Resolved) Cancer SKIN CANCER, REMOVED. Chronic back pain Confusion AT TIMES. POSSIBLE EARLY STAGES OF DEMENTIA History of esophageal dilatation Last one 10/2017 Propofol 120mg, Lidocaine 40mg IV Hyperlipidemia Osteoarthritis Surgical History History of arthroscopy KNEE (UNSURE OF SIDE) History of cholecystectomy History of colonoscopy History of esophagogastroduodenoscopy (EGD) Family History Other Family history non-contributory Social History Preferred Language: Czech Communication Ability: Effective Beliefs That Will Affect Care: None Current Living Situation Comment: Lives with friend current occupational status: retired Feels Safe at Home: Yes Smoking Status: Never smoker Second Hand Exposure: No Hx Alcohol Use: No Hx Substance Use: No Review of Systems See HPI for pertinent positives & negatives. and A total of 10 systems reviewed and were otherwise negative Physical Exam Vital Signs Vital Signs - 24 hr 09/30/18 15:44 09/30/18 17:34 09/30/18 20:22 Temperature 36.5 C Temperature Source Oral Sepsis Recent Fever Within 48 Hours No Sepsis New/Unexplained Change in Mental Status No Sepsis Action Taken by Nursing No Action Required Pulse Rate 67 Pulse Rate [Left Finger] 59 L 73 Pulse Rhythm [Left Finger] Regular Pulse Strength [Left Finger] Normal Respiratory Rate 22 20 18 Respiratory Effort / Characteristics Non-Labored Non-Labored Non-Labored Spontaneous Respiratory Depth Normal Normal Normal Respiratory Pattern Regular Regular Regular Blood Pressure 180/71 H Blood Pressure [Right Arm] 178/89 H 173/8 H Blood Pressure Mean 107 Blood Pressure Mean [Right Arm] 118 63 Blood Pressure Position [Right Arm] Lying Pulse Oximetry 96 96 95 Oxygen Delivery Method Room Air Room Air Room Air Oxygen Flow Rate 09/30/18 21:55 Temperature Temperature Source Sepsis Recent Fever Within 48 Hours Sepsis New/Unexplained Change in Mental Status Sepsis Action Taken by Nursing Pulse Rate Pulse Rate [Left Finger] 83 Pulse Rhythm [Left Finger] Regular Pulse Strength [Left Finger] Normal Respiratory Rate 18 Respiratory Effort / Characteristics Non-Labored Spontaneous Respiratory Depth Normal Respiratory Pattern Blood Pressure Blood Pressure [Right Arm] 202/83 H Blood Pressure Mean Blood Pressure Mean [Right Arm] 122 Blood Pressure Position [Right Arm] Lying Pulse Oximetry 96 Oxygen Delivery Method Nasal Cannula Oxygen Flow Rate 2 Constitutional: Vital signs reviewed. Eyes: Pupils are equal round reactive to light. Conjunctiva are noninjected. ENT: Pharynx is clear without erythema or exudate. Mucous membranes are moist. Neck supple without meningeal signs. No midline cervical tenderness to cervical spine. Respiratory: Clear to auscultation bilaterally. Breath sounds are equal bilaterally. Cardiovascular: Regular rate and rhythm. No rubs or gallops. GI: Soft, nondistended and nontender. Bowel sounds are present. Musculoskeletal: No peripheral edema. There is right hip tenderness without shortening, right anterior shoulder tenderness with proximal humeral tenderness, no deformity. Normal distal pulses. Integumentary: No cyanosis. Neurological: The patient is awake and alert. Cranial nerves II-XII are intact. Motor is 5 out of 5 all extremities. Sensation is intact to light touch all extremities. Dysarthria. No pronator drift. Psychiatric: Normal affect. Course 1606: The patient was evaluated in room C12B, and a complete history and physical examination were performed. 1941: I updated the patient about her test results at this time. She states that she has a prior fracture of the right shoulder. She would like to go home at this time. The spoke with me outside the room and states that he would like the patient placed becasue he cannot get any sleep because he is taking care of her throughout the night. He has spoken to the PCP about it and they have tried physical therapy. He would like to speak to a telehealth case manager. 2042: I checked on the patient after the nursing staff states that she could not get out of bed. She confirms that she could not get out of bed. She is having low back pain now. 2136: The patient is having more pain and is requesting more narcotics. She is refusing wearing the shoulder sling. 2138: I reviewed the patient's case with Dr. Noel - [facility]. He will evaluate the patient for further management. Administered Medications Discontinued Medications Acetaminophen (Tylenol) 650 mg PO NOW STA Stop: 09/30/18 16:15 Last Admin: 09/30/18 16:57 Dose: Not Given Documented by: [id number] Acetaminophen (Ofirmev) 65 mls @ 200 mls/hr IV NOW ONE Stop: 09/30/18 17:13 Last Infusion: 09/30/18 18:06 Dose: 0 mls/hr Documented by: [id number] Admin: 09/30/18 17:33 Dose: 200 mls/hr Documented by: [id number] Morphine Sulfate (Morphine Sulfate) 2 mg IV NOW STA Stop: 09/30/18 20:44 Last Admin: 09/30/18 20:55 Dose: 2 mg Documented by: [id number] Morphine Sulfate (Morphine Sulfate) 2 mg IV NOW STA Stop: 09/30/18 21:40 Last Admin: 09/30/18 21:50 Dose: 2 mg Documented by: [id number] Ondansetron HCl (Zofran) 4 mg IV NOW STA Stop: 09/30/18 20:44 Last Admin: 09/30/18 20:55 Dose: 4 mg Documented by: [id number] Medical Decision Making Differential Diagnosis Differential Diagnosis includes: Hip fracture, contusion, humeral fracture, concussion, and ICH. Medical Records Attestation: I reviewed the patient's medical records. I did perform a limited focused review of portions of the patient's old chart on the electronic medical record. The patient had an EGD for esophageal dilation. This showed gastritis and hiatal hernia. Home Medications Current Medication List: was personally reviewed by me Laboratory Data Attestation: I reviewed the patient's lab results. Result diagrams: 09/30/18 16:38 09/30/18 16:38 Lab Results 09/30/18 09/30/18 09/30/18 Range/Units 16:38 16:38 16:38 WBC 6.63 (4.8-10.8) K/uL RBC 4.19 L (4.2-5.4) M/uL Hgb 12.2 (12.0-16.0) g/dL Hct 37.2 (37-47) % MCV 88.8 (80-100) fL MCH 29.1 (25-34) pg MCHC 32.8 (32-36) g/dL RDW Std Deviation 46.5 H (36.4-46.3) fL RDW Coeff of Jer 14.3 (11.5-14.5) % Plt Count 189 (130-400) K/uL MPV 10.4 (7.4-10.4) fL Immature Gran % (Auto) 0.8 % Neut % (Auto) 61.4 % Lymph % (Auto) 27.0 % Wallace % (Auto) 8.7 % Eos % (Auto) 1.8 % Baso % (Auto) 0.3 % Immature Gran # (Auto) 0.05 H (0.00-0.02) K/uL Neut # (Auto) 4.07 (1.4-6.5) K/uL Lymph # (Auto) 1.79 (1.2-3.4) K/uL Wallace # (Auto) 0.58 (0.11-0.59) K/uL Eos # (Auto) 0.12 (0-0.5) K/uL Baso # (Auto) 0.02 (0-0.2) K/uL PT 10.2 (9.0-12.0) Seconds INR 1.0 (0.9-1.1) APTT 23.6 (21.0-31.0) Seconds PTT Ratio 0.9 Sodium 140 (136-145) mmol/L Potassium 4.0 (3.5-5.1) mmol/L Chloride 107 (98-107) mmol/L Carbon Dioxide 27 (21-32) mmol/L Anion Gap 6.0 (3-11) BUN 19 H (7-18) mg/dl Creatinine 0.89 (0.6-1.2) mg/dl Est Cr Clr Drug Dosing 53.7 ml/min Est GFR ( Amer) 70.4 Est GFR (Non-Af Amer) 60.8 BUN/Creatinine Ratio 21.3 H (10-20) Glucose 114 H (70-99) mg/dl Calcium 9.5 (8.5-10.1) mg/dl Imaging Data Radiologist's Impression: XR lumbar spine 2-3V CLINICAL HISTORY: 83 years-old Female presenting with fall eval for fx. TECHNIQUE: Frontal, lateral, and coned-down lateral views of the lumbar spine were obtained. COMPARISON: Correlation made to CT of the lumbar spine from 05/20/2018. FINDINGS: No scoliosis. Slightly exaggerated lumbar lordosis. Severe anterior vertebral body height loss of T12, which is new since prior CT. Moderate height loss of T11 also suspected. There is also mild anterior vertebral body height loss of L3 new since prior CT. Osteopenia is apparent. No gross evidence of retropulsion of the posterior cortices of these vertebral bodies. No radiographic evidence of osseous neural foraminal narrowing. Cholecystectomy clips noted. Marked stool burden throughout the colon. IMPRESSION: 1. Severe compression fracture of T11 new since 2018. Moderate compression fracture of T12 and mild compression fracture of L3 also new since prior CT. Electronically signed by: Arun Thomsa M.D. 09/30/2018 9:31 PM XR shoulder RT min 2V routine CLINICAL HISTORY: 83 years-old Female presenting with fall eval for fx. TECHNIQUE: Internal rotation, external rotation, Grashey views of the right shoulder were obtained. COMPARISON: Correlation made to plain radiographs of the right humerus from 07/15/2018. FINDINGS: Glenohumeral and acromioclavicular joints congruent. Allowing for suboptimal positioning of Grashey view, irregularity of the inferior bony glenoid is suggested. This may either be on a degenerative or posttraumatic basis. Underlying osteopenia is suspected. No other evidence to suggest acute fracture or malalignment. Mild degenerative changes of the acromioclavicular joint. IMPRESSION: Irregularity of the inferior bony glenoid, which may be on a degenerative or posttraumatic basis. This was not definitively visualized on prior radiograph. If there is continuing symptomatology, further imaging with axillary and transscapular Y views of the right shoulder could be obtained. Electronically signed by: Arun Thomas M.D. 09/30/2018 4:43 PM RIGHT HUMERUS 2 VIEWS HISTORY: Right arm pain. fall eval for fx COMPARISON: Right humerus 07/15/2018. FINDINGS: There is no fracture or dislocation. Soft tissues are unremarkable. No radiopaque foreign bodies. IMPRESSION: No fracture or dislocation within the right humerus. Electronically signed by: Colten Brian M.D. 09/30/2018 5:10 PM AP PELVIS ONE VIEW, RIGHT HIP 2 VIEWS HISTORY: Right hip pain. fall eval for fx COMPARISON: None. FINDINGS: There is no fracture or dislocation. Soft tissues are unremarkable. Mild osteoarthritis within the bilateral hips. The bones are osteopenic. The sacrum appears intact. IMPRESSION: No fracture or dislocation within the pelvis or hips. Electronically signed by: Colten Brian M.D. 09/30/2018 5:[address] head/brain wo con CLINICAL HISTORY: 83 years-old Female presenting with fall eval for bleed. TECHNIQUE: Multidetector CT imaging of the head was performed without the use of intravenous contrast. IV contrast: None. One or more dose lowering techniques were used consistent with the principles of ALARA (as low as reasonably achievable), including automatic exposure control, mA or kV adjustment to individual patient size, and/or use of iterative reconstruction. COMPARISON: 05/20/2018. CT DOSE (mGy.cm): The estimated cumulative dose is 2202.80. FINDINGS: Signal Inspector topogram: Unremarkable. Ventricles and sulci normal in size. No hemorrhage. Periventricular and subcortical white matter hypoattenuation, nonspecific but likely indicative of chronic small vessel ischemic change. No acute territorial infarct. No mass effect or midline shift. No extra-axial fluid collection. Paranasal sinuses and mastoid air cells clear. Calvarium intact. IMPRESSION: 1. Chronic small vessel ischemic change. No acute intracranial abnormality. Electronically signed by: Arun Thomas M.D. 09/30/2018 7:[address] DOSE: 2202.80 mGy.cm HISTORY: Neck pain. fall eval for fx TECHNIQUE: Multiaxial CT images of the cervical spine were performed and reformatted in the sagittal and coronal plane without the use of contrast. A dose lowering technique was utilized adhering to the principles of ALARA. COMPARISON: Cervical spine CT 05/20/2018. FINDINGS: No fractures. 2 mm of anterolisthesis of C4 on C5 is likely due to long-standing degenerative change. Moderate disc space narrowing at C5-C6. Prevertebral soft tissues and the C1-C2 interval are intact. No pneumothorax. Small bilateral thyroid nodules. The right C3-C4 and left C3-C5 facets are fused. IMPRESSION: No fractures within the cervical spine. Electronically signed by: Colten Brian M.D. 09/30/2018 7:17 PM Blood Pressure Blood Pressure Findings: Elevated blood pressure Blood Pressure Disposition: Referred to patients primary care provider Head Trauma GCS Score: 15 MDM Narrative I did evaluate the patient as noted above. The patient is presenting with injuries after mechanical fall. IV access was established. The patient was placed on a continuous groundwater monitoring technician. Initially she did not want any pain medicine that was strong so she was given Tylenol IV. I did order and yogi huizar reviewed the images of the patient's x-rays as described above. She does have a possible fracture of the glenoid, but she states that this is an old injury and she is refusing an arm sling. I did order and review the patient's blood work as noted in the electronic medical record. Her blood work is unremarkable. I did order a CT of the head and cervical spine. I did review the images myself as well as the radiology report as described above. There is no evidence of bleed or cervical fracture. I did reassess the patient. She is now stating that her back is bothering her. She wants to go home but her significant other states that he is having difficulty taking care of her. I did have the telehealth case manager speak to the patient and her significant other. I did order x-rays of the lumbar spine and gave the patient morphine and Zofran IV. X-rays of the lumbar spine demonstrate fractures of T11 and L3. I did reassess the patient. She is still having pain and is unable to ambulate at all. She will be hospitalized for further care. I did give her additional IV morphine. I did speak to the hospitalist about the patient. Impression & Plan Compression fx, lumbar spine, Compression fx, thoracic spine, Acute head inj ury, Injury of right shoulder, Fall Discharge Plan Visit Data Chief Complaint: Fall Stated Complaint: FALL, HIP & BACK PAIN, HEMATOMA ON HEAD ED Provider: Surjit Verma Discharge Problem: Compression fx, lumbar spine, Compression fx, thoracic spine, Acute head injury, Injury of right shoulder, Fall Patient Disposition: Being Evaluated by Hospitalist Forms Stand Alone Forms: My [facility] Prescriptions Prescriptions: No Action mometasone 50 mcg/actuation [place],Non-Aerosol 2 spray INTRANASAL DAILY RF: 0 acetaminophen [Tylenol Extra Strength] 500 mg Tablet 1,000 mg PO TID PRN (Reason: pain/fever) RF: 0 vitamin S09-ipnof acid 500-400 mcg Tablet 3,000 mcg PO DIRECTED RF: 0 cholecalciferol (vitamin D3) [Vitamin D3] 1,000 unit Tablet 2,000 unit PO QAM RF: 0 Zyrtec 10 mg Capsule 10 mg PO DIRECTED PRN (Reason: Allergy Symptoms) RF: 0 atorvastatin 10 mg Tablet 10 mg PO DAILY RF: 0 pantoprazole 40 mg Tablet,Delayed Release (Dr/Ec) 40 mg PO QPM RF: 0 sennosides-docusate sodium [Senokot-S] 8.6-50 mg Tablet 2 tab PO DAILY PRN (Reason: Constipation) RF: 0 carbidopa-levodopa 25-100 mg Tablet 1 tab PO QID RF: 0 telmisartan 80 mg Tablet 80 mg PO 1200 RF: 0 metoprolol tartrate 25 mg tablet 25 mg PO BID RF: 0 cranberry 500 mg Capsule 500 mg PO BID RF: 0 econazole 1 % cream 1 applic topical QID RF: 0 Referrals Referrals: Mague Lechuga CRNP [Primary Care Provider] - Discharge Problem: Compression fx, lumbar spine Qualifiers: Encounter type: initial encounter Lumbar vertebra fracture level: L3 Fracture type: closed Qualified Code(s): S32.030A - Wedge compression fracture of third lumbar vertebra, initial encounter for closed fracture Compression fx, thoracic spine Qualifiers: Encounter type: initial encounter Fracture type: closed Qualified Code(s): S22.000A - Wedge compression fracture of unspecified thoracic vertebra, initial encounter for closed fracture Acute head injury Qualifiers: Encounter type: initial encounter Qualified Code(s): S09.90XA - Unspecified injury of head, initial encounter Injury of right shoulder Qualifiers: Encounter type: initial encounter Qualified Code(s): S49.91XA - Unspecified injury of right shoulder and upper arm, initial encounter Fall Qualifiers: Encounter type: initial encounter Qualified Code(s): W19.XXXA - Unspecified fall, initial encounter The scribe's documentation has been prepared under my direction and personally reviewed by me in its entirety. I confirm that the note above accurately reflects all work, treatment, procedures, and medical decision making performed by me.
[2018-09-30] MEDS ORDERED: MoRPHine SULFATE 4 MG/ML 1 ML CARP\\VIAL IV STA (22:32)
[2018-09-30] MEDS ORDERED: MoRPHine SULFATE 4 MG/ML 1 ML CARP\\VIAL ONE (22:50)
[2018-10-01] MEDS ORDERED: MoRPHine SULFATE 4 MG/ML 1 ML CARP\\VIAL IV PRN (00:11)
[2018-10-01] MEDS ORDERED: ACETAMINOPHEN 500 MG TAB PO PRN (00:11)
[2018-10-01] MEDS ORDERED: POLYETHYLENE (MIRALAX) 17 GM PACK PO PRN (00:11)
[2018-10-01] MEDS ORDERED: DOCUSATE SODIUM/SENNA 50/8.6MG TAB PO PRN (00:11)
[2018-10-01] MEDS ORDERED: ALUMINUM/MAGNESIUM SUSP 30 ML UDC PO PRN (00:11)
[2018-10-01] MEDS ORDERED: MAGNESIUM HYDROXIDE SUSP 30 ML UDC PO PRN (00:11)
[2018-10-01] MEDS ORDERED: CETIRIZINE HCL 10 MG TABLET PO PRN (00:11)
[2018-10-01] MEDS: ONDANSETRON INJ 2 MG/ML 2 ML VIAL IV PRN ×2 (03:21→16:32)
[2018-10-01] MEDS ORDERED: INFLUENZA VIRUS QUAD VACCINE 0.5 ML SYR IM ONE (08:30)
[2018-10-01] MEDS ORDERED: INFLUENZA ADMINISTRATION CHARGE ONE (08:30)
[2018-10-01] MEDS ORDERED: PNEUMOCOCCAL ADMINISTRATION CHARGE ONE (08:30)
[2018-10-01] MEDS ORDERED: PNEUMOCOCCAL POLYSACCHARIDES 25 MCG/0.5 ML VIAL/SYR IM ONE (08:30)
[2018-10-01] MEDS: CHOLECALCIFEROL 1,000 UNITS TAB PO SCH (08:54)
[2018-10-01] MEDS: FLUTICASONE PROPIONATE NA SPR 16 GM BTL SCH (08:54)
[2018-10-01] MEDS: CARBIDOPA/LEVODOPA 25/100MG TAB PO SCH ×5 (08:54→21:22)
[2018-10-01] MEDS: ECONAZOLE NITRATE 1% CRM 15 GM TUBE TOP SCH ×4 (08:54→21:23)
[2018-10-01] MEDS: ATORVASTATIN 10 MG TAB PO SCH (08:54)
[2018-10-01] MEDS: METOPROLOL TARTRATE 25 MG TAB PO SCH ×2 (08:54→21:21)
[2018-10-01] MEDS: TELMISARTAN 40 MG TAB PO SCH (12:34)
--- NOTE | 2018-10-01 18:00 | XRay Report ---
XR abdomen 2V w PA chest CLINICAL HISTORY: vomiting, eval ileus, SBO ,etc COMPARISON STUDY: February 2017 FINDINGS: There is minimal distention of the colon which is stool-filled. Gas is visualized down to t he sigmoid. There is no free intraperitoneal air. Erect chest reveals aortic tortuosity/ectasia. Ther e is no lobar consolidation. There are surgical clips within the right upper quadrant likely secondar y to a prior cholecystectomy. IMPRESSION: 1. Stool filled colon down to the level of the sigmoid. Diagnostic considerations include an ileus ve rsus a distal colonic obstruction. Electronically signed by: Ventura Melvin M.D. 10/01/2018 5:59 PM
[2018-10-01] MEDS: LIDOCAINE 5% 1 PATCH TD SCH (18:43)
[2018-10-01] MEDS: CALCITONIN SALMON NA 200 IU/AC 3.7 ML BTL SCH (18:47)
[2018-10-01] MEDS ORDERED: BISACODYL 10 MG SUPP PR STA (19:04)
--- NOTE | 2018-10-01 20:13 | Hospitalist Progress Note ---
Date of Service October 01, 2018 Assessment & Plan (1) Compression fx, thoracic spine: IV/PO narcotics cause considerable confusion and nausea. Thus, d/c all of these; use tramadol prn. Order K-pad. Order back brace through orthotics. Lidoderm patches. Calcitonin nasal spray - will help w/ osteoporosis and with pain. Check 25-OH vit D level in am. Tylenol prn. Present on Admission?: Yes (2) Compression fx, lumbar spine: see discussion above in "compression fx, thoracic spine" (3) Injury of right shoulder: glenoid abnormality on x-rays. mild pain of the right shoulder on exam. consider orthopedic evaluation. pain control in meantime. (4) Fall: frequent falls at home per family. numerous risk factors for such with largest being the parkinsonism. agree with SNF placement. PT, OT. family reports frequent UTIs often precipitating falls. will check u/a and urine cx. (5) GERD (gastroesophageal reflux disease): cont PPI (6) HTN (hypertension): cont home meds (7) Constipation: likely cause of vomiting today; cannot rule out narcotics contributing to nausea/emesis as well. x-rays with SEVERE constipation. she may have element of obstipation. dulcolax suppos x 1 now. may need enema. bowel regimen at minimum - senna/colace/miralax. restrict diet to full liquids until constipation improved and no additional nausea/emesis. (8) Parkinsonism: followed by Dr Singh - neurology. cont sinemet. cont pureed diet as recommended by speech (was seen by speech as outpt in the last few weeks). PT, OT. (9) Encephalopathy: toxic from pain meds? stop IV/PO narcotics. follow. avoid benzos and sedatives. (10) DVT prophylaxis: heparin 5000 BID family updated at bedside Subjective during my visit patient's and step-daughter were at bedside they confirmed with me that she has "parkinsonism" and that she is followed by Dr. Singh for this they also confirmed she has significant cognitive impairment and can get "pretty beligerant" when in the hospital they stated that with past falls she often has concomitant UTI during the visit she began to c/o nausea and proceeded to vomit a small amount of yellow liquid (nonbilious) family reports very poor tolerance to narcotics of any kind patient able to give limited history Review of Systems Review of Systems: Unobtainable due to cognitive status Physical Exam Constitutional: + acute distress (vomiting ), average body habitus and + altered mental status speech very slow with low pitch ENMT: mucous membranes dry Respiratory: normal respiratory effort, lungs clear to auscultation Cardiovascular: Rate/Rhythm: regular rate and regular rhythm Heart Sounds: normal S1 and normal S2; no murmur Vessels: posterior tibial pulses present and dorsalis pedis pulses present; no JVD Extremities: no edema Gastrointestinal (Abdomen): Inspection/Auscultation: + abdomen distended Percussion/Palpation: + abdomen tender; no hepatosplenomegaly tympanic to percussion Musculoskeletal: mild tenderness to palpation over lower t-spine segments and l-spine; tender over humeral head on right with palpation and with passive ROM Neurologic: increased tone and rigidity due to parkinsonism Psychiatric: Orientation: alert; + not oriented x 3 Results & Data Vital Signs (Past 12 Hours) Vital Signs Temp Pulse Resp BP Pulse Ox 10/01/18 15:36 36.6 C 66 17 119/66 90 10/01/18 15:17 36.8 C 69 14 111/68 91 10/01/18 13:26 95 Laboratory Results Laboratory Results - last 24 hr 10/01/18 20:32 Urine Color Yellow Urine Appearance Cloudy H Urine pH 5.0 Ur Specific Topping 1.025 Urine Protein Trace H Urine Glucose (UA) Negative Urine Ketones Trace H Urine Blood Negative Urine Nitrite Negative Urine Bilirubin Negative Urine Urobilinogen Negative Ur Leukocyte Esterase Trace H Urine WBC (Auto) 10-30 H Urine RBC (Auto) 5-10 H U Hyaline Cast (Auto) 10-30 H U Epithel Cells (Auto) >30 H Urine Bacteria (Auto) Negative (1) Compression fx, thoracic spine Encounter type: initial encounter Fracture type: closed Qualified Code(s): S22.000A - Wedge compression fracture of unspecified thoracic vertebra, initial encounter for closed fracture (2) Compression fx, lumbar spine Encounter type: initial encounter Fracture type: closed Lumbar vertebra fracture level: L3 Qualified Code(s): S32.030A - Wedge compression fracture of third lumbar vertebra, initial encounter for closed fracture (3) Injury of right shoulder Encounter type: initial encounter Qualified Code(s): S49.91XA - Unspecified injury of right shoulder and upper arm, initial encounter (4) Fall Encounter type: initial encounter Qualified Code(s): W19.XXXA - Unspecified fall, initial encounter (5) GERD (gastroesophageal reflux disease) Esophagitis presence: without esophagitis Qualified Code(s): K21.9 - Gastro- esophageal reflux disease without esophagitis (6) HTN (hypertension) Hypertension type: essential hypertension Qualified Code(s): I10 - Essential (primary) hypertension (7) Constipation Constipation type: other constipation type Qualified Code(s): K59.09 - Other constipation (8) Parkinsonism Parkinsonism type: unspecified Qualified Code(s): G20 - Parkinson's disease
[2018-10-01] MEDS ORDERED: SODIUM CHLORIDE 0.9% 1000ML 1,000 ML IV SCH (20:15)
[2018-10-01] MEDS: PANTOprazole 40 MG TAB PO SCH (21:22)
[2018-10-01 22:18] LABS: Appearance Urine Cloudy (Clear); Bacteria Urine Automated Negative (Negative); Bilirubin Urine Negative (Negative); Blood Urine Negative (Negative); Color Urine Yellow; Epithelial Cell Urine Auto >30 /lpf (0-5); Glucose Urine UA Negative (Negative); Ketones Urine Trace (Negative); Leukocyte Esterase Urine Trace (Negative); Nitrite Urine Negative (Negative); Protein Urine Trace (Negative); Specific Gravity Urine 1.025 (1.000-1.030); Urobilinogen Urine Negative (Negative)
[2018-10-02] MEDS: TRAMADOL HCL 50 MG TABLET PO PRN (02:20)
[2018-10-02] MEDS ORDERED: POLYETHYLENE (MIRALAX) 17 GM PACK PO SCH (09:00)
[2018-10-02 09:09] LABS: BUN Creatinine Ratio 28.5 (10-20); Calcium 9.5 mg/dl (8.5-10.1); Creatinine Clr Calc Pharmacy 51.1 ml/min; Est GFR (African American) 67.7; Est GFR (Non-African American) 58.4; Potassium 3.9 mmol/L (3.5-5.1)
[2018-10-02] MEDS ORDERED: BISACODYL 10 MG SUPP PR STA ×2 (09:18→17:50)
[2018-10-02] MEDS: FLUTICASONE PROPIONATE NA SPR 16 GM BTL SCH (09:45)
[2018-10-02] MEDS: LIDOCAINE 5% 1 PATCH TD SCH (09:45)
[2018-10-02] MEDS: HEPARIN SOD 5,000 UNIT/0.5 ML VIAL SQ SCH ×2 (09:45→21:44)
[2018-10-02] MEDS: CALCITONIN SALMON NA 200 IU/AC 3.7 ML BTL SCH (09:45)
[2018-10-02] MEDS: METOPROLOL TARTRATE 25 MG TAB PO SCH ×2 (09:46→21:28)
[2018-10-02] MEDS: ATORVASTATIN 10 MG TAB PO SCH (09:46)
[2018-10-02] MEDS: CHOLECALCIFEROL 1,000 UNITS TAB PO SCH (09:46)
[2018-10-02] MEDS: CARBIDOPA/LEVODOPA 25/100MG TAB PO SCH ×4 (09:47→21:25)
[2018-10-02] MEDS: DOCUSATE SODIUM/SENNA 50/8.6MG TAB PO SCH (09:48)
[2018-10-02] MEDS: ECONAZOLE NITRATE 1% CRM 15 GM TUBE TOP SCH ×4 (09:48→21:26)
[2018-10-02] MEDS: TELMISARTAN 40 MG TAB PO SCH (12:53)
[2018-10-02] MEDS: POLYETHYLENE (MIRALAX) 17 GM PACK PO SCH ×2 (14:08→21:24)
[2018-10-02] MEDS: PANTOprazole 40 MG TAB PO SCH (21:25)
[2018-10-03] MEDS: TRAMADOL HCL 50 MG TABLET PO PRN (05:11)
--- NOTE | 2018-10-03 06:24 | Hospitalist Progress Note ---
Date of Service Date of service is 10/03/2018 October 03, 2018 Assessment & Plan (1) Compression fx, thoracic spine: With severe compression fracture at T11, moderate at T12, secondary to osteoporosis and a fall from standing height IV/PO narcotics cause considerable confusion and nausea. Thus, discontinued all of these;-continue using tramadol prn. -Continue K-pad. -Ordered back brace to orthotics but the patient did not tolerate it-declined for now -Continue Lidoderm patches. If in continue calcitonin nasal spray - will help w/ osteoporosis and with pain. Vitamin D level is normal at 47 -Continue Tylenol as needed -Would recommend treatment for osteoporosis as an outpatient-perhaps with bisphosphonate versus Prolia or Forteo (2) Compression fx, lumbar spine: Also with mild compression deformity of L3 -See discussion above in "compression fx, thoracic spine" (3) Injury of right shoulder: glenoid abnormality on x-rays. Has been reports she is had surgery on the shoulder in the past and other falls onto that shoulder. There is no absolutely no pain at all on passive or active range of motion of the right shoulder today and I suspect this is an old abnormality seen on x-ray -No orthopedic consultation needed at this time (4) Fall: frequent falls at home per family. numerous risk factors for such with largest being the parkinsonism. agree with SNF placement. PT, OT. family reports frequent UTIs often precipitating falls. Urinalysis here not consistent with infection-is contaminated with >30 epi cells's (5) GERD (gastroesophageal reflux disease): cont PPI (6) HTN (hypertension): cont home meds Of metoprolol 25 mill grams p.o. twice daily and telmisartan 80 mg daily (7) Constipation: likely cause of vomiting she had previously, now had one bowel movement today but still has a lot of stool on x-ray x-rays with SEVERE constipation. -We will give another Dulcolax suppository now -Continue MiraLAX 3 times daily -Continue senna/docusate 2 tabs daily -Continue to restrict diet to full liquids until constipation better improved (8) Parkinsonism: followed by Dr Singh - neurology. cont sinemet. -Due to suspected dysphagia, speech therapy evaluation placed Awaiting recommendations (9) Encephalopathy: toxic from pain meds? stop IV/PO narcotics. Family reports that she seems to be at her baseline which is very drowsy and lethargic during the day and awake all night avoid benzos and sedatives. Suspect this is underlying cognitive impairment at this point -Supportive care -Low-dose Seroquel as needed at night for sleeping to try to reset sleep-wake cycle (10) DVT prophylaxis: heparin 5000 BID Disposition-to nursing facility tomorrow for rehab Family including and daughter updated at the bedside Subjective Patient drowsy and sleeping but wakes up and answers some questions. Family reports that this is her normal-she usually sleeps all day and is up all night even at home. She did have a bowel movement today as per the nurses aide. Patient denies any pain in the back. She tells me that she thinks she is at her house and does not believe me when I tell her she is in the hospital. Has been reports that he was told the patient was up all night yelling out loud which he says she does frequently at home as well. The nurse also told me that the patient was having trouble managing thin liquids and requested a speech consultation. I discussed the case with the speech therapist. I reviewed previous video swallow study. The patient denies any pain in her right shoulder Review of Systems Review of Systems: All systems reviewed & are unremarkable except as noted in HPI & below Physical Exam Constitutional: average body habitus (Keeps her eyes closed but does open at times and answers my questions) Eyes: PERRL, conjunctivae normal, anicteric sclerae ENMT: external ear and nose normal, oropharynx normal Neck: trachea midline, no thyromegaly Respiratory: normal respiratory effort, lungs clear to auscultation Cardiovascular: RRR, no murmur, no edema Gastrointestinal (Abdomen): normal bowel sounds, soft, nontender, no hepatosplenomegaly Musculoskeletal: Extremities: extremities normal to inspection; no cyanosis and no clubbing Shoulder: shoulder normal to inspection (No pain at all with active and passive range of motion in all directions of the right shoulder) Skin: no rashes, warm and dry Neurologic: moves all extremities and awake; no focal motor deficits Psychiatric: Orientation: oriented to person and cooperative; + not oriented to place and + not oriented to time Results & Data Vital Signs (Past 12 Hours) Vital Signs Temp Pulse Resp BP Pulse Ox 10/02/18 23:14 36.8 C 69 18 146/77 H 96 Laboratory Results 10/02/18 10/02/18 Range/Units 08:17 08:17 Sodium 137 (136-145) mmol/L Potassium 3.9 (3.5-5.1) mmol/L Chloride 106 (98-107) mmol/L Carbon Dioxide 24 (21-32) mmol/L Anion Gap 7.0 (3-11) BUN 26 H (7-18) mg/dl Creatinine 0.92 (0.6-1.2) mg/dl Est Cr Clr Drug Dosing 51.1 ml/min Est GFR ( Amer) 67.7 Est GFR (Non-Af Amer) 58.4 BUN/Creatinine Ratio 28.5 H (10-20) Glucose 129 H (70-99) mg/dl Calcium 9.5 (8.5-10.1) mg/dl 25-OH Vitamin D Total 47.2 (30-100) ng/ml (1) Compression fx, thoracic spine Encounter type: initial encounter Fracture type: closed Qualified Code(s): S22.000A - Wedge compression fracture of unspecified thoracic vertebra, initial encounter for closed fracture (2) Compression fx, lumbar spine Encounter type: initial encounter Fracture type: closed Lumbar vertebra fracture level: L3 Qualified Code(s): S32.030A - Wedge compression fracture of third lumbar vertebra, initial encounter for closed fracture (3) Injury of right shoulder Encounter type: initial encounter Qualified Code(s): S49.91XA - Unspecified injury of right shoulder and upper arm, initial encounter (4) Fall Encounter type: initial encounter Qualified Code(s): W19.XXXA - Unspecified fall, initial encounter (5) GERD (gastroesophageal reflux disease) Esophagitis presence: without esophagitis Qualified Code(s): K21.9 - Gastro- esophageal reflux disease without esophagitis (6) HTN (hypertension) Hypertension type: essential hypertension Qualified Code(s): I10 - Essential (primary) hypertension (7) Constipation Constipation type: other constipation type Qualified Code(s): K59.09 - Other constipation (8) Parkinsonism Parkinsonism type: unspecified Qualified Code(s): G20 - Parkinson's disease
[2018-10-03] MEDS: FLUTICASONE PROPIONATE NA SPR 16 GM BTL SCH (10:04)
[2018-10-03] MEDS: CALCITONIN SALMON NA 200 IU/AC 3.7 ML BTL SCH (10:04)
[2018-10-03] MEDS: LIDOCAINE 5% 1 PATCH TD SCH (10:05)
[2018-10-03] MEDS: CHOLECALCIFEROL 1,000 UNITS TAB PO SCH (10:06)
[2018-10-03] MEDS: DOCUSATE SODIUM/SENNA 50/8.6MG TAB PO SCH (10:06)
[2018-10-03] MEDS: POLYETHYLENE (MIRALAX) 17 GM PACK PO SCH ×2 (10:06→13:21)
[2018-10-03] MEDS: ECONAZOLE NITRATE 1% CRM 15 GM TUBE TOP SCH ×2 (10:07→13:21)
[2018-10-03] MEDS: ATORVASTATIN 10 MG TAB PO SCH (10:07)
[2018-10-03] MEDS: HEPARIN SOD 5,000 UNIT/0.5 ML VIAL SQ SCH (10:08)
[2018-10-03] MEDS: CARBIDOPA/LEVODOPA 25/100MG TAB PO SCH ×2 (10:08→13:20)
[2018-10-03] MEDS: METOPROLOL TARTRATE 25 MG TAB PO SCH (10:09)
[2018-10-03] MEDS: TELMISARTAN 40 MG TAB PO SCH (13:00)
--- NOTE | 2018-10-03 14:42 | Discharge Summary ---
Date of Service October 03, 2018 Admission HPI Per Admitting Provider 83 y/o F Hx HTN, HLD, dementia, GERD, Parkinson's. Presents after a mechanical fall where she landed on her back side and could not ambulate following. She was sent to the ER where compression fractures of T11, T12 and L3 were confirmed. She is unable to provide a detailed history. The ER attending had initially intended to transfer the pt directly to acute rehab, however, the facility was not able to accommodate the request. She is therefore assigned to observation due to gait dysfunction and pending rehab. She is unable to effectively communicate due to her Parkinson's and likely dementia. PMH: 1) HLD 2) HTN 3) GERD 4) Dementia 5) Parkinson's 6) esophageal stricture requiring dilitation 7) OA Surgical: 1) cholecystectomy Social: Does not drink or smoke Family: Could not provide Principal Diagnosis Thoracic and Lumbar vertebral compression fractures Discharge Exam Constitutional average body habitus Eyes PERRL, conjunctivae normal, anicteric sclerae ENMT external ear and nose normal, oropharynx normal Neck trachea midline, no thyromegaly Respiratory normal respiratory effort, lungs clear to auscultation Cardiovascular RRR, no murmur, no edema Gastrointestinal (Abdomen) normal bowel sounds, soft, nontender, no hepatosplenomegaly Musculoskeletal Extremities: extremities normal to inspection; no cyanosis and no clubbing Shoulder: shoulder normal to inspection (No pain at all with active and passive range of motion in all directions of the right shoulder) Skin no rashes, warm and dry Neurologic moves all extremities and awake; no focal motor deficits Psychiatric Orientation: oriented to person and cooperative; + not oriented to place and + not oriented to time Discharge Data Allergies Allergy/AdvReac Type Severity Reaction Status Date / Time Penicillins Allergy Intermediate Unknown Verified 09/02/18 16:09 atenolol Allergy Mild UNKNOWN Verified 09/02/18 16:09 chlorthalidone Allergy Mild UNKNOWN Verified 09/02/18 16:09 atorvastatin AdvReac Mild GI SYMPTOMS Verified 09/02/18 16:09 hydrochlorothiazide AdvReac Mild GI SYMPTOMS Verified 09/02/18 16:09 naproxen AdvReac Mild GI SYMPTOMS Verified 09/02/18 16:09 amoxicillin AdvReac Unknown diarrhea Verified 09/02/18 16:09 Cipro AdvReac Unknown nausea/vomi Verified 12/29/17 07:49 ting ciprofloxacin AdvReac Unknown nausea/vomi Verified 09/02/18 16:09 ting hydrocodone AdvReac Unknown n/v loss Verified 09/02/18 16:09 of appetite Consultations 09/30/18 21:38 ED Decision to Admit Stat Ordered Studies 09/30/18 16:14 CT cervical spine wo con Stat CT head/brain wo con Stat Right shoulder xray Right humerus xray Hip/pelvis xray Lumbar spine xray Abdomen xray Hospital Course (1) Compression fx, thoracic spine: With severe compression fracture at T11, moderate at T12, secondary to osteoporosis and a fall from standing height IV/PO narcotics cause considerable confusion and nausea. Thus, discontinued all of these;-continue using tramadol prn. -Continue K-pad. -Ordered back brace to orthotics but the patient did not tolerate it-declined for now -Continue Lidoderm patches. - continue calcitonin nasal spray - will help w/ osteoporosis and with pain. Vitamin D level is normal at 47 -Continue Tylenol as needed -Would recommend treatment for osteoporosis as an outpatient-perhaps with bisp hosphonate versus Prolia or Forteo (2) Compression fx, lumbar spine: Also with mild compression deformity of L3 -See discussion above in "compression fx, thoracic spine" (3) Injury of right shoulder: glenoid abnormality on x-rays. reports she has had surgery on the shoulder in the past and other falls onto that shoulder. There is no absolutely no pain at all on passive or active range of motion of the right shoulder today and I suspect this is an old abnormality seen on x-ray -No orthopedic consultation needed at this time (4) Fall: frequent falls at home per family. numerous risk factors for such with largest being the parkinsonism. agree with SNF placement. PT, OT. family reports frequent UTIs often precipitating falls. Urinalysis here not consistent with infection-is contaminated with >30 epi cells's (5) GERD (gastroesophageal reflux disease): cont PPI (6) HTN (hypertension): cont home meds with metoprolol 25 mg p.o. twice daily and telmisartan 80 mg daily (7) Constipation: likely cause of vomiting she had previously x-rays with SEVERE constipation. Had resolution with several Dulcolax suppositories, Miralax tid -Continue senna/docusate 2 tabs daily -advanced diet (8) Parkinsonism: followed by Dr Singh - neurology. cont sinemet. -Due to suspected dysphagia, speech therapy evaluation placed Appreciate recommendations (9) Encephalopathy: Likely was toxic from pain meds, now improved prior to discharge with with holding opioids Family reports that she seems to be at her baseline which is very drowsy and lethargic during the day and awake all night avoid benzos and sedatives. Suspect this is underlying cognitive impairment at this point -Supportive care -Low-dose Seroquel as needed at night for sleeping to try to reset sleep-wake cycle (10) Lower extremity edema: weight stable for the last 4 months in our EMR Notes from outpt and previous ER documentation with lower extremity edema noted on physical exam Last ECHO normal in 2010 No dyspnea to suggest CHF -started lasix 20mg daily -check BMP in 3-4 days at SNF (11) DVT prophylaxis: heparin 5000 BID Disposition-to nursing facility today for rehab Total Time Total Time Spent Total Time Spent (In Minutes): >30 min Total Time Includes: Examination of the Patient, Discharge Planning and Medication Reconciliation Discharge Plan Discharge Items Patient Disposition: Transfer Correction Fac Reason For Visit: FALL, COMPRESSION FRACTURES, GAIT Discharge Diagnosis: Vertebral compression fractures, constipation Condition: Fair Discharge Goals: Decrease discomfort, Diagnostic testing, Improve disease control, Increase independence, Learn about illness and Therapeutic intervention Activity: As commented below Lifting: None Bathing: No limitations Exercise/Sports: As tolerated Non-emergency contact: Primary Care Provider Call non-emergency contact if: you have any medication questions, your symptoms worsen, your pain is not controlled, your pain is worsening, your pain is unusual for you and your pain is concerning for you Follow-up/Referrals: Mague Lechuga CRNP [Primary Care Provider] - Diet: Regular Addtl Provider Instructions: Ms. Becerra was admitted with a fall and several vertebral compression fractures. She was also found ot have severe constipation which was relieved with an aggres sive bowel regimen. She needs rehab for strengthening. She does have significant lower extremity edema which did improve during her stay, but she was started on a diuretic upon discharge. She should have a BMP in 3-4 days to check lytes and renal function. Prescriptions: New polyethylene glycol 3350 [Miralax] 17 gram Powder In Packet 17 g PO DAILY Qty: 30 RF: 0 tramadol 50 mg Tablet 50 mg PO Q4H PRN (Reason: pain) Qty: 3 RF: 0 calcitonin (salmon) 200 unit/actuation [place],Non-Aerosol 200 units NA DAILY Qty: 3.7 RF: 0 lidocaine 5 % Adhesive Patch,Medicated 2 patch transdermal QAM Qty: 60 RF: 0 furosemide [Lasix] 20 mg tablet 20 mg PO DAILY Qty: 30 RF: 0 Continued mometasone 50 mcg/actuation [place],Non-Aerosol 2 spray INTRANASAL DAILY RF: 0 acetaminophen [Tylenol Extra Strength] 500 mg Tablet 1,000 mg PO TID PRN (Reason: pain/fever) RF: 0 vitamin X64-afzto acid 500-400 mcg Tablet 3,000 mcg PO DIRECTED RF: 0 cholecalciferol (vitamin D3) [Vitamin D3] 1,000 unit Tablet 3,000 unit PO QAM RF: 0 Zyrtec 10 mg Capsule 10 mg PO DIRECTED PRN (Reason: Allergy Symptoms) RF: 0 atorvastatin 10 mg Tablet 10 mg PO DAILY RF: 0 pantoprazole 40 mg Tablet,Delayed Release (Dr/Ec) 40 mg PO QPM RF: 0 carbidopa-levodopa 25-100 mg Tablet 1 tab PO QID RF: 0 telmisartan 80 mg Tablet 80 mg PO 1200 RF: 0 cranberry 500 mg Capsule 500 mg PO BID RF: 0 econazole 1 % cream 1 applic topical QID RF: 0 metoprolol succinate [Toprol XL] 25 mg Tablet Extended Release 24 Hr 25 mg PO BID RF: 0 Changed sennosides-docusate sodium [Senokot-S] 8.6-50 mg Tablet 2 tab PO DAILY Qty: 0 RF: 0 Stand-Alone Forms: [facility] Discharge Orders: Discharge Order (Routine); Ordered 10/03/18 Ordered By: Maria Guadalupe Lindo Skilled Items Patient informed of condition?: Yes DNR: No Discharge Level of Care: Skilled Communicable Disease: No Discharge Prognosis: Improving Admission Data Admit Date/Time: 10/02/18 11:42 Attending Provider: Maria Guadalupe Lindo Admit Provider: Ashok Noel Primary Care Provider: Mague Lechuga I Other Providers: Ashok Noel Service: Surgical Services Other Interventions: Discharge Summary Assessment (RN) Last Done: 10/03/18 14:18 Pending Studies at Discharge: No DC Date/Time DO NOT enter until pt leaves facility: 10/03/18 16:08
--- OUTSIDE RECORDS SUMMARY | 2018-10-07 15:37 | External Medical Summary | Continuity of Care Document ---
:1935 Author Name Aracely Mueller, Provider Address Unavailable Unavailable , Care Team Providers Name Role Phone Alexandrea Mueller, Emiliano Unavailable [email or web address] [place], Antonieta Unavailable [email or web address] Mague Onofre Unavailable [email or web address] ALEXANDREA Mueller Unavailable Unavailable Unavailable Unavailable Unavailable Problems Cyst of ovary (620.2) (N83.209) Tendonitis, calcific, shoulder (726.11) (M75.30) Osteopenia (733.90) (M85.80) Dysphagia (787.20) (R13.10) Schatzki's ring (750.3) (K22.2) Dysphagia, oropharyngeal phase (787.22) (R13.12) 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) Muscular weakness (728.87) (M62.81) Parkinsonism (332.0) (G20) Daytime hypersomnolence (780.54) (G47.19) Daytime somnolence (780.54) (R40.0) Dyslipidemia (272.4) (E78.5) Diabetes mellitus (250.00) (E11.9) Mild cognitive impairment (331.83) (G31.84) Gastroesophageal reflux disease (530.81) (K21.9) Aortic atherosclerosis (440.0) (I70.0) Chronic osteoarthritis (715.90) (M19.90) History of subdural hematoma (V12.59) (Z86.79) Status: Resolved Hiatal hernia (553.3) (K44.9) Weight loss (783.21) (R63.4) Hepatic steatosis (571.8) (K76.0) Coronary artery calcification (414.00) (I25.10) Fibroids (215.9) (D21.9) Allergic rhinitis (477.9) (J30.9) Hyponatremia (276.1) (E87.1) History of dry mouth (V12.79) (Z87.19) Fuchs' corneal dystrophy (371.57) (H18.51) Esophageal dysmotility (530.5) (K22.4) Low back pain (724.2) (M54.5) Urinary frequency (788.41) (R35.0) Urinary tract infection (599.0) (N39.0) Muscular weakness (728.87) (M62.81) Upper extremity pain (729.5) (M79.603) Recurrent falls (V15.88) (R29.6) 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) Limited mobility (V49.89) (Z74.09) Bilateral lower extremity edema (782.3) (R60.0) Abnormality of lung on chest x-ray (793.19) (R91.8) Hypertension (401.9) (I10) Pain in joint of left shoulder (719.41) (M25.512) Hydronephrosis, right (591) (N13.30) Chronic kidney disease (585.9) (N18.9) Constipation (564.00) (K59.00) Allergies and Adverse Reactions Amoxicillin TABS (Allergy) Cipro TABS (Allergy) Reaction: Vomiting hydroCHLOROthiazide TABS (Allergy) hydrocodone (Allergy) Lipitor TABS (Allergy) Naproxen TABS (Allergy) Reaction: Other Tenoretic 100 TABS (Allergy) Vicodin TABS (Allergy) Reaction: Nausea Medications Atorvastatin Calcium 10 MG Oral Tablet; Take 1 tablet daily JEM Dockery Start: 15-Oct-2017 Quantity: 90 Refills: 3 Senokot S 8.6-50 MG Oral Tablet; TAKE 2 TABLETS DAILY NEE DED. Start: 15-Oct-2017 Refills: 0 Vitamin D (Cholecalciferol) 1000 UNIT Oral Tablet; TAKE 3000 UNIT Daily Start: 31-Dec-2015 Refills: 0 Vitamin B-12 1000 MCG Oral Tablet; TAKE 3 TABLETS DAILY D IRECTED. Start: 31-Dec-2015 Refills: 0 Pantoprazole Sodium 40 MG Oral Tablet De layed Release; TAKE 1 TABLET BY MOUTH DAILY JEM Dockery Start: 15-Oct-2017 Quantity: 90 Refills: 3 ZyrTEC Allergy 10 MG Oral Capsule Start: 10-Apr-2017 Refills: 0 Metoprolol Succinate ER 25 MG Oral Table t Extended Release 24 Hour; Take 1 tablet twice a day NOREEN Lechuga Start: 10-Feb-2011 Quantity: 180 Refills: 1 Mometasone Furoate 50 MCG/ACT Nasal Susp ension; USE 2 SPRAYS IN EACH NOSTRIL ONCE DAILY Ami Lechuga Start: 15-Oct-2014 Quantity: 3 17 GM Inhaler Refills: 3 Carbidopa-Levodopa 25-100 MG Oral Tablet; TAKE 1 TABLE T 4 TIMES DAILY Ami Singh Start: 17-Oct-2017 Quantity: 360 Refills: 1 Telmisartan 80 MG Oral Tablet; TAKE 1 TABLET BY MOUTH EVERY DAY NOREEN Lechuga Start: 18-Jun-2018 Quantity: 90 Refills: 2 Tylenol Extra Strength 500 MG Oral Tablet; 2 tablets 3 times daily Ami Lechuga Start: 20-Oct-2015 Quantity: 90 Refills: 0 Procedures EGD Date: 02-Sep-2018 History of Cholecystectomy Laparoscopic Status: Completed History of Knee Arthroscopy (Therapeutic) Status: Completed History of Hallux Valgus (Bunion) Correction Status: Completed History of Destruction Of Hemorrhoids St atus: Completed Immunizations Pneumococcal polysaccharide vaccine, 23 valent On: 7 0:00 Influenza On: 07-Mar-2012 Lot #: [id number], Influenza On: 11-Mar-2013 11:26 Lot #: [id number], SANOFI PASTEUR Influenza On: 28-Mar-2014 9:46 Lot #: [id number], SANOFI PASTEUR Tdap (Adacel) On: 15-Oct-2014 11:38 Lot #: [id number], SANOFI PASTEUR Influenza On: 12-Mar-2015 Lot #: [id number], SANOFI PASTEUR Influenza On: 21-Mar-2016 Lot #: [id number], SANOFI PASTEUR Fluzone High-Dose Intramuscular Suspension On: 26-Mar-2017 1 6:46 Lot #: [id number], SANOFI PASTEUR Fluzone High-Dose 0.5 ML Intramuscular Suspension Pref illed Syringe On: 01-Apr-2018 10:47 Lot #: [id number], SANOFI PASTEUR Family History Unknown Family Member Family history of Stroke Syndrome (V17.1) Status: Active Comments: Family History Mother Family history of cardiac disorder (V17.49) (Z82.49) Status: Active natural daughter Family history of malignant neoplasm of female breast (V16.3 ) Status: Active (Z80.3) Social History - Smoking Status Never smoker Plan of Treatment Planned Encounters Appointment; Jay Singh M.D. Start: 14-Nov-2018 11:45 Requ est Planned Observations Planned Goals not documented Results XR shoulder RT min 2V RTN Laboratory: [facility] Diagnostic (Pending) Imaging [address] [facility] 30-Sep-2018 16:40 XR shoulder RT min 2V RTN [place], [place] [phone] XRay Report Patient: MANAV NATHAN Admit Date: 09/10 07/30 MR#: [id number] Address1: [address] [place] [address] Acct ID:[id number] Address2: [place] [address] Date: 1935 [facility] Zip: [place] [address] Age: 83 Location: ED Sex: F Room/Bed: Att Phy: Diagnosis: FALL, HIP BACK PAIN, HEMATOMA ON HEAD Meka Phy: Mague Lechuga CRNP Service D ate: 09/30/18 Fam Phy: Interpreting Phy: Arun Thomas MD Admit Phy: Ordering Phy: Surjit Verma MD cc: XR shoulder RT min 2V routine CLINICAL HISTORY: 83 years-old Female presenting with fall eval for fx. TECHNIQUE: Internal rotation, external rotation, Grashey views of the right shoulder were obtained. COMPARISON: Correlation made to plain radiographs of the right humerus from 07/15/2018. FINDINGS: Glenohumeral and acromioclavicular joints congruent. Allowing for suboptimal positioning of [place], irregularity of the inferior bony glenoid is suggested. This may either be on a degenerative or posttraumatic basis. Underlying osteopenia is suspected. No other evidence to suggest acute fracture or malalignment. Mild degenerative changes of the acromioclavicular joint. IMPRESSION: Irregularity of the inferior bony glenoid, which may be on a degenerative or posttraumatic basis. This was not definitively visualized on prior radiograph. If there is continuing symptomatology, further imaging with axillary and transscapular Y views of the right shoulder could be obtained. Electronically signed by: Arun Thomas M.D. 09/30/2018 4:43 PM Dictated: 09/30/18 1640 Transcribed: 09/30/18 1640 XR hip RT 2-3V w pelvis Laboratory: [facility] Diagnostic (Pending) Imaging 1800 [facility] 30-Sep-2018 17:07 XR hip RT 2-3V w pelvis [place], [place] [phone] XRay Report Patient: MANAV NATHAN Admit Date: 09/10 07/30 MR#: [id number] Address1: [address] [place] [address] Acct ID:[id number] Address2: [place] [address] Date: 1935 [facility] Zip: [place] [address] Age: 83 Location: ED Sex: F Room/Bed: Att Phy: Diagnosis: FALL, HIP BACK PAIN, HEMATOMA ON HEAD Meka Phy: Mague Lechuga CRNP Service D ate: 09/30/18 [facility] Phy: Interpreting Phy: Colten garcia MD Admit Phy: Ordering Phy: Surjit Verma MD cc: AP PELVIS ONE VIEW, RIGHT HIP 2 VIEWS HISTORY: Right hip pain. fall eval for fx COMPARISON: None. FINDINGS: There is no fracture or dislocation. Soft tissues are unremarkable. Mild osteoarthritis within the bilateral hips. The bones are osteopenic. The sacrum appears intact. IMPRESSION: No fracture or dislocation within the pelvis or hips. Electronically signed by: Colten Brian M.D. 09/30/2018 5:08 PM Dictated: 09/30/18 1707 Transcribed: 09/30/18 170 XR humerus RT 2V (Pending) Laboratory: [facility] Diagnostic Imaging 1800 [facility] 30-Sep-2018 17:08 XR humerus RT 2V [facility], [place] [phone] XRay Report Patient: MANAV NATHAN Admit Date: 09/10 07/30 MR#: [id number] Address1: [address] [place], [place] [address] Acct ID:[id number] Address2: [place] [address] Date: 1935 [facility] Zip: [place] [address] Age: 83 Location: ED Sex: F Room/Bed: Att Phy: Diagnosis: FALL, HIP BACK PAIN, HEMATOMA ON HEAD Meka Phy: Mague Lechuga CRNP Service D ate: 09/30/18 Fam Phy: Interpreting Phy: Colten garcia MD Admit Phy: Ordering Phy: Surjit Verma MD cc: RIGHT HUMERUS 2 VIEWS HISTORY: Right arm pain. fall eval for fx COMPARISON: Right humerus 07/15/2018. FINDINGS: There is no fracture or dislocation. Soft tissues are unremarkable. No radiopaque foreignbodies. IMPRESSION: No fracture or dislocation within the right humerus. Electronically signed by: Colten Brian M.D. 09/30/2018 5:10 PM Dictated: 09/30/181707 Transcribed: 09/30/181707 CT Head w/o Contrast Laboratory: [facility] Diagnostic (Pending) Imaging [address] [facility] 30-Sep-2018 19:07 CT HEAD WITHOUT CONTRAST [facility], [place] [phone] CT Scan Report Patient: MANAV NATHAN Admit Date: 09/10 07/30 MR#: [id number] Address1: [address] [place], [place] [address] Acct ID:[id number] Address2: [place] [address] Date: 1935 [facility] Zip: [place] [address] Age: 83 Location: ED Sex: F Room/Bed: Att Phy: Diagnosis: FALL, HIP BACK PAIN, HEMATOMA ON HEAD Meka Phy: Mague Lechuga CRNP Service D ate: 09/30/18 Fam Phy: Interpreting Phy: Arun Thomas MD Admit Phy: Ordering Phy: Surjit Verma MD cc: CT head/brain wo con CLINICAL HISTORY: 83 years-old Female presenting with fall eval for bleed. TECHNIQUE: Multidetector CT imaging of the head was performed without the use of intravenous contrast. IV contrast: None. One or more dose lowering techniques were used consistent with the principles of ALARA (as low as reasonably achievable), including automatic exposure control, mA or kV adjustment to individual patient size, and/or use of iterative reconstruction. COMPARISON: 05/20/2018. CT DOSE (mGy.cm): The estimated cumulative dose is 2202.80. FINDINGS: Early Childhood Assistant topogram: Unremarkable. Ventricles and sulci normal in size. No hemorrhage. Periventricular and subcortical white matter hypoattenuation, nonspecific but likely indicative of chronic small vessel ischemic change. No acuteterritorial infarct. No mass effect or midline shift. No extra-axial fluid collection. Paranasal sinuses and mastoid air cells clear. Calvarium intact. IMPRESSION: 1. Chronic small vessel ischemic change. No acute intracranial abnormality. Electronically signed by: Arun Thomas M.D. 09/30/2018 7:09 PM Dictated: 09/30/181906 Transcribed: 09/30/181906 CT Cervical Spine w/o Laboratory: [facility] Diagnostic Contrast (Pending) Imaging [address] [facility] [place] 30-Sep-2018 19:11 CT CERVICAL SPINE W/O IV CONT [facility], [place] [phone] CT Scan Report Patient: MANAV NATHAN Admit Date: 09/10 07/30 MR#: [id number] Address1: [address] [place] [address] Acct ID:[id number] Address2: [place] [address] Date: 1935 [facility] Zip: [place] [address] Age: 83 Location: ED Sex: F Room/Bed: Att Phy: Diagnosis: FALL, HIP BACK PAIN, HEMATOMA ON HEAD Meka Phy: Mague Lechuga CRNP Service D ate: 09/30/18 Fam Phy: Interpreting Phy: Colten garcia MD Admit Phy: Ordering Phy: Surjit Verma MD cc: CERVICAL SPINE CT CT DOSE: 2202.80 mGy.cm HISTORY: Neck pain. fall eval for fx TECHNIQUE: Multiaxial CT images of the cervical spine were performed and reformatted in the sagittal and coronal plane without the use of contrast. A dose lowering technique was utilized adhering to the principles of ALARA. COMPARISON: Cervical spine CT 05/20/2018. FINDINGS: No fractures. 2 mm of anterolisthesis of C4 on C5 is likely due to long-standing degenerative change. Moderate disc space narrowing at C5-C6. Prevertebral soft tissues and the C1-M3jnkibajo are intact. No pneumothorax. Small bilateral thyroid nodules. The right C3-C4 and left C3-C5 facets are fused. IMPRESSION: No fractures within the cervical spine. Electronically signed by: Colten Brian M.D. 09/30/2018 7:17 PM Dictated: 09/30/181910 Transcribed: 09/30/181910 X-Ray Lumbar Spine 2 Or 3 Laboratory: [facility] Diagnostic View (Pending) Imaging 1800 [facility] 30-Sep-2018 21:29 X-Ray Lumbar Spine 2 or 3 Vws (LS2OR3) [place], [place] [phone] XRay Report Patient: MANAV NATHAN Admit Date: 09/10 07/30 MR#: [id number] Address1: [address] [place] [address] Acct ID:[id number] Address2: [place] [address] Date: 1935 [facility] Zip: [place] [address] Age: 83 Location: ED Sex: F Room/Bed: Att Phy: Diagnosis: FALL, HIP BACK PAIN, HEMATOMA ON HEAD Meka Phy: Mague Lechuga CRNP Service D ate: 09/30/18 [facility] Phy: Interpreting Phy: Arun Thomas MD Admit Phy: Ordering Phy: Surjit Verma MD cc: XR lumbar spine 2-3V CLINICAL HISTORY: 83 years-old Female presenting with fall eval for fx. TECHNIQUE: Frontal, lateral, and coned-down lateral views of the lumbar spine were obtained. COMPARISON: Correlation made to CT of the lumbar spine from 05/20/2018. FINDINGS: No scoliosis. Slightly exaggerated lumbar lordosis. Severe anterior vertebral body height loss of T12, which is new since prior CT. Moderate height loss of T11 also suspected. There is also mild anterior vertebral body height loss of L3 new since prior CT. Osteopenia is apparent. No gross evidence of retropulsion of the posterior cortices of these vertebral bodies. No radiographic evidence of osseous neural foraminal narrowing. Cholecystectomy clips noted. Marked stool burden throughout the colon. IMPRESSION: 1. Severe compression fracture of T11 new since 2018. Moderate compression fracture of T12 and mild compression fracture of L3 also new since prior CT. Electronically signed by: Arun Thomas M.D. 09/30/2018 9:31 PM Dictated: 09/30/182128 Transcribed: 09/30/182128 X-ray Abdomen 2 View w/PA Laboratory: [facility] Diagnostic Chest Rtn (Pending) Imaging [address] [facility] 01-Oct-2018 17:54 ABDOMEN 2VIEW W/PA CHEST RTN [place], [place] [phone] XRay Report Patient: MANAV NATHAN Admit Date: 09/10 07/30 MR#: [id number] Address1: [address] [place] [address] Acct ID:[id number] Address2: [place] [address] Date: 1935 [facility] Zip: [place] [address] Age: 83 Location: 3W Sex: F Room/Bed: [facility] Att Phy: Jem Barron MD Diagnosis: FA LL, COMPRESSION FRACTURES, GAIT Meka Phy: Mague Lechuga CRNP Service D ate: 10/01/18 Fam Phy: Interpreting Phy: Ventura Melvin MD Admit Phy: Ashok Noel M.D. Ordering Phy: Jem Barron MD cc: XR abdomen 2V w PA chest CLINICAL HISTORY: vomiting, eval ileus, SBO ,etc COMPARISON STUDY: February 2017 FINDINGS: There is minimal distention of the colon which is stool-filled. Gas is visualized down tothe sigmoid. There is no free intraperitoneal air. Erect chest reveals aortic tortuosity/ectasia. There is no lobar consolidation. There are surgical clips within the right upper quadrant likely secondary to a prior cholecystectomy. IMPRESSION: 1. Stool filled colon down to the level of the sigmoid. Diagnostic considerations include an ileus versus a distal colonic obstruction. Electronically signed by: Ventura Melvin M.D. 10/01/2018 5:59 PM Dictated: 10/01/181753 Transcribed: 10/01/181753 Urine rflx Microscopic Laboratory: [facility] Laboratory Comments : Lawanda N (Pending) [address] [place] [address] tel: 01-Oct-2018 20:32 Urine Color Yellow Urine Appearance Cloudy Range: Clear (Abnormal) Urine Specific [place] 1.025 Range: 1.0 00-1.030 Urine Ph 5.0 Range: 4.5-7.5 Urine Protein(Dipstick) Trace Range: Ne gative (Abnormal) Urine Glucose(Dipstick) Range: Negative Negative Urine Ketones Trace (Abnormal) Range: N egative Urine Bilirubin Negative Range: Negativ e URINE BLOOD HGB Negative Range: Negativ e Urobilinogen Negative Range: Negative Nitrite Urine Negative Range: Negative Urine Leukocyte Esterase Trace Range: N egative (Abnormal) Urine Rbc Auto 5-10 {/hpf} Range: 0-4 / hpf (Abnormal) Urine Wbc Auto 10-30 {/hpf} Range: 0-5 /hpf (Abnormal) Urine Epithelial Cell Auto >30 Range: 0 -5 /lpf {/lpf} (Abnormal) Urine Cast (Auto) 10-30 {/lpf} Range: 0 -5 /lpf (Abnormal) Urine Bacteria (Auto) Negative Range: N egative Basic Metabolic Panel Laboratory: [facility] Laboratory (Pending) [address] [facility] [address] tel: 02-Oct-2018 8:17 SODIUM 137 mmol/L Range: 136-145 mmol /L POTASSIUM 3.9 mmol/L Range: 3.5-5.1 mmo l/L CHLORIDE 106 mmol/L Range: 98-107 mmol/ L CARBON DIOXIDE 24 mmol/L Range: 21-32 m mol/L ANION GAP 7.0 Range: 3-11 BLOOD UREA NITROGEN 26 mg/dl Range: 7-1 8 mg/dl (above high threshold) CREATININE 0.92 mg/dl Range: 0.6-1.2 mg /dl Estimated Creatinine Clearance Range: m l/min 51.1 ml/min Comments: Est. Creat inine Clearance (Mod Cockcroft-Gault) for pharmacydosing purposes. Estimated GFR ( Comments: Units: ml/min per [place]) 67.7 1.73 meters squaredT he estimated GFR (CKD-E PI equation) has not be en validatedfor inpatie nt settings and may not be an accurate reflectiono f renal function in critical ly ill patients or those withrapidly changing renal function (e.g. VELMA). Estimated GFR (Non- Comments: Uni ts: ml/min per [place]) 58.4 1.73 meters squaredT he estimated GFR (CKD-E PI equation) has not be en validatedfor inpatie nt settings and may not be an accurate reflectiono f renal function in critical ly ill patients or those withrapidly changing renal function (e.g. VELMA). BUN/CREATININE RATIO 28.5 Range: 10-20 (above high threshold) GLUCOSE 129 mg/dl (above high Range: 70 -99 mg/dl threshold) CALCIUM 9.5 mg/dl Range: 8.5-10.1 mg/ dl Vitamin D, 25-Hydroxy Laboratory: [facility] Laboratory (Pending) [address] [facility] [address] tel: 02-Oct-2018 8:17 VITAMIN D, 25 HYDROXY 47.2 Range: 30-10 0 ng/ml ng/ml Comments: Deficient: <20 ng/mLInsufficient: 20-30 ng/mLSufficient: 30-100 ng/mL Encounters Appointment; Jessica Pulido III, M.D. 11-Sep-2018 13:00 Encounter Diagnosis: Problem not documented Appointment; Magalis Nunez CRNP 02-Sep-2018 13:40 Encounter Diagnosis: Problem not documented Appointment; Mague Lechuga CRNP 28-Aug-2018 9:00 Encounter Diagnosis: Problem not documented Appointment; Jay Singh M.D. 08-Aug-2018 10:15 Encounter Diagnosis: Problem not documented Appointment; Mague Lechuga CRNP 02-Aug-2018 10:30 Encounter Diagnosis: Problem not documented Appointment; Mague Lechuga CRNP 25-Jul-2018 11:00 Encounter Diagnosis: Problem not documented Appointment; Michelle Sweeney PA-C 15-Jul-2018 15:00 Encounter Diagnosis: Problem not documented Appointment; Mague Lechuga CRNP 02-Jul-2018 11:00 Encounter Diagnosis: Problem not documented Appointment; Mague Lechuga CRNP 18-Jun-2018 13:30 Encounter Diagnosis: Problem not documented Appointment; Antonieta Dockery PA-C 30-May-2018 15:30 Encounter Diagnosis: Problem not documented Appointment; Mague Lechuga CRNP 20-May-2018 15:30 Encounter Diagnosis: Problem not documented Appointment; Lamar Hsu CRNP 13-May-2018 10:30 Encounter Diagnosis: Problem not documented Appointment; Emiliano Lechuga M.D. 01-Apr-2018 9:30 Encounter Diagnosis: Problem not documented Appointment; Jay Singh M.D. 15-Mar-2018 11:00 Encounter Diagnosis: Problem not documented Appointment; OLI CURTIS, Ultrasound 10-Jan-2018 12:00 Encounter Diagnosis: Problem not documented Appointment; Yas Linares M.D. 04-Jan-2018 10:00 Encounter Diagnosis: Problem not documented Appointment; Antonieta Dockery PA-C 27-Dec-2017 10:15 Encounter Diagnosis: Problem not documented Appointment; Jay Snigh M.D. 13-Dec-2017 11:45 Encounter Diagnosis: Problem not documented Appointment; Jay Singh M.D. 17-Oct-2017 15:30 Encounter Diagnosis: Problem not documented Appointment; Emiliano Lechuga M.D. 15-Oct-2017 9:45 Encounter Diagnosis: Problem not documented Appointment; OLI BOYKIN1, Ultrasound 19-Apr-2017 9:45 Encounter Diagnosis: Problem not documented Appointment; Imelda Castillo M.D. 19-Apr-2017 9:30 Encounter Diagnosis: Problem not documented Appointment; Magalis Nunez CRNP 10-Apr-2017 10:30 Encounter Diagnosis: Problem not documented Appointment; Antonieta Dockery PA-C 26-Mar-2017 9:45 Encounter Diagnosis: Problem not documented Appointment; Emiliano Lechuga M.D. 26-Mar-2017 9:30 Encounter Diagnosis: Problem not documented Appointment; Michelle Sweeney PA-C 09-Mar-2017 13:45 Encounter Diagnosis: Problem not documented Appointment; Jay Singh M.D. 26-Oct-2016 11:30 Encounter Diagnosis: Problem not documented Appointment; Antonieta Dockery PA-C 25-Oct-2016 14:00 Encounter Diagnosis: Problem not documented Appointment; Michelle Sweeney PA-C 17-Oct-2016 11:15 Encounter Diagnosis: Problem not documented Appointment; Jay Singh M.D. 14-Nov-2018 11:45 Encounter Diagnosis: Problem not documented
== END 2018-10-03 16:08 | DRG 542 ==
LOC: ED 15:34 → 3W 15:34 → SUATTDRO 22:43 → 3W 23:17
DX: W18.09XA Striking against other object with subsequent fall, initial encounter; M80.08XA Age-related osteoporosis with current pathological fracture, vertebra(e), initial encounter for fracture; T40.605A Adverse effect of unspecified narcotics, initial encounter; Z88.0 Allergy status to penicillin; S49.91XA Unspecified injury of right shoulder and upper arm, initial encounter; G20 Parkinson's disease; K59.00 Constipation, unspecified; Y92.019 Unspecified place in single-family (private) house as the place of occurrence of the external cause; R13.10 Dysphagia, unspecified; I10 Essential (primary) hypertension; S09.90XA Unspecified injury of head, initial encounter; Y93.01 Activity, walking, marching and hiking; G92 Toxic encephalopathy; Z87.440 Personal history of urinary (tract) infections

== ENCOUNTER 2019-04-25 11:50 | Inpatient (IN) ==
[2019-04-25 12:56] LABS: Appearance Urine Turbid (Clear); Bacteria Urine Automated Negative (Negative); Bilirubin Urine Negative (Negative); Blood Urine Negative (Negative); Color Urine Yellow; Epithelial Cell Urine Auto >30 /lpf (0-5); Glucose Urine UA Negative (Negative); Ketones Urine Negative (Negative); Leukocyte Esterase Urine 2+ (Negative); Nitrite Urine Negative (Negative); Protein Urine 1+ (Negative); Specific Gravity Urine 1.019 (1.000-1.030); Urobilinogen Urine Negative (Negative)
[2019-04-25 13:20] LABS: RBC Urine Automated >30 /hpf (0-4); Renal Epithelial Cells Urine 0-5 /lpf (0-5)
[2019-04-25] MEDS ORDERED: SODIUM CHLORIDE 0.9% 1000ML 500 ML IV ONE (13:39)
[2019-04-25] MEDS: SODIUM CHLORIDE 0.9% 1000ML 1,000 ML IV SCH ×3 (14:14→22:14)
[2019-04-25 14:28] LABS: Basophils # (auto) 0.02 K/uL (0-0.2); Basophils % (auto) 0.2 %; Eosinophils # (auto) 0.03 K/uL (0-0.5); Eosinophils % (auto) 0.3 %; Hematocrit (blood only) 36.4 % (37-47); Hemoglobin 11.4 g/dL (12.0-16.0); Immature Granulocytes % (auto) 0.8 %; Lymphocytes # (auto) 1.38 K/uL (1.2-3.4); Lymphocytes % (auto) 11.7 %; Mean Corpuscular Hemoglobin 28.3 pg (25-34); Mean Corpuscular Hgb Conc 31.3 g/dL (32-36); Mean Corpuscular Volume 90.3 fL (80-100); Monocytes # (auto) 0.92 K/uL (0.11-0.59); Monocytes % (auto) 7.8 %; Neutrophils # (auto) 9.32 K/uL (1.4-6.5); Neutrophils % (auto) 79.2 %; Nucleated RBC # (auto) 0.02 K/uL (0-0); Nucleated RBC % (auto) 0.2 %; Platelet Count 170 K/uL (130-400); RDW Coefficient of Variation 14.8 % (11.5-14.5); RDW Standard Deviation 48.2 fL (36.4-46.3); Red Blood Count 4.03 M/uL (4.2-5.4); White Blood Count 11.77 K/uL (4.8-10.8)
[2019-04-25 14:45] LABS: Alanine Aminotransferase 9 U/L (12-78); Albumin Level 3.4 gm/dl (3.4-5.0); Aspartate Aminotransferase 22 U/L (15-37); BUN Creatinine Ratio 28.5 (10-20); Blood Urea Nitrogen 63 mg/dl (7-18); Calcium 10.1 mg/dl (8.5-10.1); Carbon Dioxide 23 mmol/L (21-32); Chloride 107 mmol/L (98-107); Est GFR (African American) 23.4; Est GFR (Non-African American) 20.2; Glucose 129 mg/dl (70-99); Lipase 232 U/L (73-393); Potassium 4.8 mmol/L (3.5-5.1); Sodium 138 mmol/L (136-145)
[2019-04-25 14:48] LABS: Albumin Globulin Ratio 0.8 (0.9-2); Alkaline Phosphatase 70 U/L (45-117); Bilirubin,Total 0.7 mg/dl (0.2-1); Globulin 4.2 gm/dl (2.5-4.0); Total Protein 7.6 gm/dl (6.4-8.2)
--- NOTE | 2019-04-25 15:00 | CT Scan Report ---
CT abd pelvis wo con CLINICAL HISTORY: 84 years-old Female presenting with LLQ pain, abd distension, diarrhea, alzheimer. TECHNIQUE: Multidetector CT of the abdomen and pelvis was performed without the use of intravenous co ntrast. IV contrast: None. One or more dose lowering techniques were used consistent with the princip les of ALARA (as low as reasonably achievable), including automatic exposure control, mA or kV adjust ment to individual patient size, and/or use of iterative reconstruction. COMPARISON: 11/12/2018. CT DOSE (mGy.cm): The estimated cumulative dose is 1144.78 mGy.cm. FINDINGS: Bean Snapper topogram: Gaseous distended bowel. Lung bases: Mild multichamber enlargement of the heart. Coronary artery, aortic valve, and mitral quyen ular calcification. Small bilateral pleural effusions. Dependent passive atelectasis related to the p leural effusions. Liver: Normal morphology. Normal density. Biliary: No gross biliary ductal dilatation allowing for noncontrast technique. Normal gallbladder. Pancreas: Mild parenchymal atrophy. Spleen: Normal noncontrast appearance. Adrenal glands: Normal noncontrast appearance. Kidneys and ureters: Normal noncontrast appearance. No nephrolithiasis. No hydronephrosis. Normal ure ters. Bladder: The configuration of the bladder suggests pelvic ligamentous laxity. Bladder otherwise alexia l. Pelvic organs: Normal noncontrast appearance. Bowel: Mild wall thickening of the mid to inferior rectum with possible rectal descent due to pelvic floor laxity suspected. The appearance is similar to prior. Gaseous distended colon without evidence of obstruction. No other sites of colonic wall thickening. The appendix is normal. Diffuse mild gaseo us distention of small bowel without evidence of obstruction. Moderate sliding type hiatal hernia. Peritoneal cavity: No free fluid or intraperitoneal gas. Lymph nodes: Left external iliac ovoid nodule appears to be fluid density as on prior exam, possibly a small lymphocele. This is not suspected to represent a lymph node. No pathologically enlarged lymph nodes in the abdomen or pelvis. Scattered subcentimeter upper abdominal retroperitoneal lymph nodes similar to prior exam and nonspecific. Vasculature: Atherosclerosis of the normal caliber abdominal aorta. Abdominal wall: Mild body wall edema. Musculoskeletal: Degenerative changes of the spine. Moderate to severe compression deformity of T12 u nchanged from prior. IMPRESSION: 1. Nonspecific mild gaseous distention of small and large bowel. No inflammatory changes or evidence of obstruction. This could represent ileus. 2. Allowing for noncontrast technique, no other evidence of acute intra-abdominal pathology. 3. Pelvic floor incompetence/laxity suspected with rectal descent. The mild degree of mid to lower r ectal wall thickening is nonspecific and unchanged from prior. Correlate clinically to exclude a mild proctitis. 4. Moderate hiatal hernia. 5. Mild cardiomegaly with small bilateral pleural effusions and bibasilar atelectasis. Electronically signed by: Arun Thomas M.D. 04/25/2019 2:59 PM
--- NOTE | 2019-04-25 15:04 | XRay Report ---
XR chest 1V portable HISTORY: 84 years-old Female cough acute cough COMPARISON: Chest radiograph 11/12/2018 TECHNIQUE: Portable AP view of the chest FINDINGS: Cardiac silhouette is mildly enlarged, unchanged. There is a new right suprahilar/paratracheal opacit y which appears somewhat masslike measuring up to approximately 4.1 cm. Calcified plaque of the thora cic aortic arch. No pneumothorax, pleural effusion or overt pulmonary edema. Patient is slightly ro[place]. Mild subsegmental left basilar atelectasis. Degenerative changes of the shoulders and spine. Cho lecystectomy. Mild gaseous distention of the bowel within the upper abdomen. IMPRESSION: 1. 4.1 cm right paratracheal/suprahilar opacity is new from prior study. Airspace disease versus unde rlying lesion are the differential considerations. This finding may also be accentuated by mild patie nt rotation with normal right hilar structures. Correlation with follow-up CT of the chest recommende d. 2. Mild cardiomegaly. The above report was generated using voice recognition software. It may contain grammatical, syntax o r spelling errors. Electronically signed by: J Carlos Rosa M.D. 04/25/2019 3:03 PM
--- NOTE | 2019-04-25 16:01 | CT Scan Report ---
CT OF THE CHEST WITHOUT IV CONTRAST CLINICAL HISTORY: Possible chest mass. Abnormal chest radiograph. COMPARISON STUDY: Chest CT July 18, 2018. Chest radiograph performed earlier today. CT DOSE: 420.27 mGy.cm TECHNIQUE: Axial images of the chest were obtained without IV contrast. Images were reviewed in the axial, sagittal, and coronal planes. IV contrast was not administered for this examination. Automat ed exposure control was utilized for the study. A dose lowering technique was utilized adhering to t he principles of ALARA. FINDINGS: Mild cardiomegaly is noted. There is moderate coronary artery calcification. No pericardia l effusion is noted. There is no pneumothorax. There are trace bilateral pleural effusions. Scattered subpleural opacities reflect atelectasis. There is no consolidation to suggest pneumonia. There are no suspicious findings within the lungs. The possible abnormality and chest radiograph performed junior ier today is due to pulmonary vessels. No suspicious osseous lesions are noted. A moderate sized hiat al hernia is noted. Bowel dilatation is partially imaged on this exam. This is better depicted on the CT of the abdomen performed earlier today. Several calcified granulomas are noted. IMPRESSION: 1. No suspicious findings within the chest. The possible abnormality on prior chest radiograph was du e to normal vessels. 2. Trace bilateral pleural effusions. 3. Moderate sized hiatal hernia. Electronically signed by: Maximo Matthew M.D. 04/25/2019 4:00 PM
[2019-04-25] MEDS ORDERED: ALUMINUM/MAGNESIUM SUSP 30 ML UDC PO PRN (18:48)
[2019-04-25] MEDS ORDERED: MAGNESIUM HYDROXIDE SUSP 30 ML UDC PO PRN (18:48)
[2019-04-25] MEDS ORDERED: ZOLPIDEM TARTRATE 5 MG TAB PO PRN (18:48)
--- NOTE | 2019-04-25 19:06 | History & Physical Report ---
Date of Service April 25, 2019 Assessment & Plan (1) Lower abdominal pain: In the presence of CT finding of proctitis We will start patient on Flagyl IV Also patient was started on ceftriaxone for UTI. Due to the chronic diarrhea, will order C. difficile although clinical picture does not support that While on IV antibiotics will initiate oral vancomycin due to the history of C. difficile (2) Diarrhea: Rule out C. difficile Treat C. difficile empirically while on other antibiotics (3) VELMA (acute kidney injury): Likely ATN secondary to dehydration plus telmisartan plus Lasix Hold both meds Gentle IV fluid hydration Check renal function again in a.m. (4) Dehydration: As above (5) UTI (urinary tract infection): Present on admission Ordered urine culture/blood culture Ceftriaxone empirically Lactobacillus and Vanco oral (6) Generalized weakness: Secondary to all of the above, will order physical therapy occupational therapy and also speech for swallow evaluation History of Present Illness Chief Complaint: Generalized weakness and fatigue Primary Care Provider: Antonieta Dockery 84-year-old female with past medical history of esophageal dysmotility, Parkinson's disease, gait abnormality, diabetes mellitus type 2, chronic kidney disease stage II, history of intracranial hemorrhage/traumatic secondary to fall, dyslipidemia, GERD, essential hypertension and previous episode of diverticulitis/C. difficile colitis. Patient came from custodial with a complaint of generalized fatigue and increased frequency of urination. Patient did have a fall on Sunday but was not injured, yesterday she had 4 episodes of diarrhea no blood or melena reported, but this morning she was unable to stand up without assistance and paramedics were called for the generalized weakness. In 2016 patient had a fall in [place] and was found to have intracranial hemorrhage no intervention was required at that time but patient was taking of aspirin. In the ED she was found to have Elevated creatinine of 2.2, last creatinine was 1.2, creatinine few months before that was 0.9. Her BUN in the ED was 63, indicating an element of dehydration, she had a normal saturation and room air, troponin was borderline +0.06 but she denied any chest pain or any significant shortness of breath. She complained of lower abdominal pain and slight abdominal distention, CT scan showed mild thickening of the mid to inferior rectum with gaseous distention of the colon without evidence of obstruction or thickening of the rectum was suggestive of mild proctitis. In response to patient complain of frequent urination, urine analysis showed possible UTI although there was a lot of epithelial and red blood cells in the sample, but giving her symptoms she will be admitted and treated accordingly. Allergies Allergy/AdvReac Type Severity Reaction Status Date / Time Penicillins Allergy Intermediate Unknown Verified 04/25/19 14:33 atenolol Allergy Mild UNKNOWN Verified 04/25/19 14:33 chlorthalidone Allergy Mild UNKNOWN Verified 04/25/19 14:33 atorvastatin AdvReac Mild GI SYMPTOMS Verified 04/25/19 14:33 hydrochlorothiazide AdvReac Mild GI SYMPTOMS Verified 04/25/19 14:33 naproxen AdvReac Mild GI SYMPTOMS Verified 04/25/19 14:33 amoxicillin AdvReac Unknown diarrhea Verified 04/25/19 14:33 Cipro AdvReac Unknown nausea/vomi Verified 12/29/17 07:49 ting ciprofloxacin AdvReac Unknown nausea/vomi Verified 04/25/19 14:33 ting hydrocodone AdvReac Unknown n/v loss Verified 04/25/19 14:33 of appetite Home Medications Home Medications Medication Instructions Recorded Confirmed Type acetaminophen [Tylenol Extra 1,000 mg PO TID PRN 06/30/18 04/25/19 History Strength] atorvastatin 10 mg PO QAM 06/30/18 04/25/19 History cholecalciferol (vitamin D3) 3,000 unit PO QAM 06/30/18 04/25/19 History [Vitamin D3] mometasone 2 spray INTRANASAL QAM 06/30/18 04/25/19 History cranberry 500 mg PO BID 09/02/18 04/25/19 History metoprolol succinate [Toprol XL] 25 mg PO BID 10/03/18 04/25/19 History cetirizine 5 mg PO DAILY PRN 11/12/18 04/25/19 History folic acid 1 mg PO QAM 11/12/18 04/25/19 History miscellaneous medical supply #1 ea 11/22/18 12/31/18 Rx carbidopa 25 mg-levodopa 100 mg 1 tab PO QID 90 Days #360 tab 01/15/19 04/25/19 Rx tablet mirtazapine 15 mg tablet 15 mg PO HS #30 tab 02/11/19 04/25/19 Rx potassium chloride 20 mEq 20 meq PO BID #180 tab 02/14/19 04/25/19 Rx tablet,extended release tramadol 50 mg tablet 50 mg PO HS #30 tab 03/13/19 04/25/19 Rx calcitonin (salmon) 200 units NA QAM 04/25/19 04/25/19 History cyanocobalamin (vitamin B-12) 500 mcg PO QAM 04/25/19 04/25/19 History [Vitamin B-12] furosemide [Lasix] 20 mg PO QAM 04/25/19 04/25/19 History pnxxgfok-chh-pgcc-folic-vit K1 1 tab PO QAM 04/25/19 04/25/19 History [Centrum Chewables] pantoprazole 40 mg PO QAM 04/25/19 04/25/19 History polyethylene glycol 3350 [Miralax] 17 g PO QAM 04/25/19 04/25/19 History sennosides-docusate sodium 2 tab PO QAM 04/25/19 04/25/19 History [Senokot-S] telmisartan 80 mg PO DAILY@1200 04/25/19 04/25/19 History Past Med/Surg History Medical History Abnormality of lung on chest x-ray Allergic rhinitis Aortic atherosclerosis Bilateral lower extremity edema Cancer SKIN CANCER, REMOVED. Chronic back pain Chronic kidney disease Chronic osteoarthritis Confusion AT TIMES. POSSIBLE EARLY STAGES OF DEMENTIA Coronary artery calcification Cyst of ovary Daytime somnolence Diabetes mellitus Dyslipidemia Esophageal dysmotility Fibroids Fuchs' corneal dystrophy Gait apraxia GERD (gastroesophageal reflux disease) Hemorrhoid (Resolved) Hepatic steatosis Hiatal hernia History of dry mouth History of esophageal dilatation Last one 10/2017 Propofol 120mg, Lidocaine 40mg IV HTN (hypertension) (Chronic) Hydronephrosis, right Hypercholesterolemia Hyperlipidemia Hyponatremia Idiopathic polyneuropathy Limited mobility Low back pain Mild cognitive impairment Muscular weakness Osteoarthritis Osteopenia Parkinson disease Recurrent falls Schatzki's ring Tendonitis, calcific, shoulder Urinary frequency Weight loss Surgical History History of arthroscopy KNEE (UNSURE OF SIDE) History of cholecystectomy History of colonoscopy History of esophagogastroduodenoscopy (EGD) Family History Unknown Stroke syndrome Mother Cardiac disorder Daughter Malignant neoplasm of female breast Other Family history non-contributory Social History Preferred Language: Yi Communication Ability: Effective Engineer Of System Development Required: No Beliefs That Will Affect Care: None marital status: Life Partner Current Living Situation Comment: Lives with friend current occupational status: retired Feels Safe at Home: Yes Smoking Status: Never smoker Second Hand Exposure: No ; Hx Alcohol Use: No Hx Substance Use: No Review of Systems Review of Systems: Review of system Constitutional: Generalized weakness and fatigue, no fever or chills Eyes: no blurring of vision / no eye pain / no discharge / no redness ENT: no hearing loss / no epistaxis /no swallowing problems Respiratory: no cough / no wheezing / no SOB / no hemoptysis Cardiovascular: no Chest pain / no lower extremity edema / no palpitation Abdomen: Lower abdominal tenderness with mild diarrhea as a baseline Musculoskeletal: no joint pain / no muscle pain / no joint swelling Genitourinary: Increased frequency of urination with no burning sensation in the urine Neurologic: no focal weakness / no numbness/tingling / no ataxia Psychiatric: no depression symptoms / no anxiety / no insomnia Endocrine: no excessive thirst / no excessive urination Hematologic: no abnormal bleeding / no bruising / no LN swelling Skin: No rash / no pallor Physical Exam Physical Exam: Physical examination General frail elderly female with mild distress HEENT: Atraumatic , normocephalic /no jaundice /no pallor /anicteric /no dry mucous membrane /normal external ear inspection Neck: Supple /no swelling /central trach Heart: S1/S2 normal/regular rate and rhythm/no gallop /no rub /no murmur Lungs: Clear to auscultation bilaterally/normal chest with expansion/no rhonchi/no rales/no wheezing/no use of accessory muscles of respiration Abdomen: Soft/slightly tender in lower quadrant No organomegaly/no pulsatile mass Musculoskeletal: No swelling/no edema/no tenderness/normal range of motion Neuro exam: Awake alert oriented 3/cranial nerves II through XII appear to be intact/sensation intact/moves all extremities/no abnormal movements Psychiatric evaluation: No depressed mood/normal affect Skin: No rash on exposed skin area/no erythema Extremity: Normal pulse/+2 edema lower extremity Results & Data Vital Signs (Past 12 Hours) Vital Signs Temp Pulse Pulse Resp BP BP Pulse Ox 04/25/19 18:00 72 20 122/73 98 04/25/19 17:03 72 18 124/76 98 04/25/19 15:30 77 20 120/70 95 04/25/19 13:57 83 20 122/72 95 04/25/19 12:07 36.9 C 81 18 121/75 95 Code Status & VTE Plan VTE Prophylaxis Plan VTE Prophylaxis will be ordered: Yes PG Care Time/CCT Total # of Minutes Spent Total Time Spent with Patient: 35 minutes total time spent is greater than 50% in coordination of care (as documented) at patient's floor/unit and/or counseling patient/family discussion of care with nursing staff (1) Diarrhea Diarrhea type: unspecified type Qualified Code(s): R19.7 - Diarrhea, unspecified
--- NOTE | 2019-04-25 19:48 | Emergency Department Note ---
Entered by Andrez Ramirez acting as a scribe for Dong Palafox MD ED Provider Note CHIEF COMPLAINT: Abdominal pain HISTORY OF PRESENT ILLNESS: The patient is an 84 year old female that presents to the ED from [facility] with a chief complaints of upper abdominal pain that started this morning, per family at bedside. He states that the patient had diarrhea that started yesterday and had about 4 episodes yesterday. The family notes that the patient received diarrhea medication which seemed to help but she still has pain and a lot of gas. Family reports a persistent raspy sound when the patient is breathing but she does not have any shortness of breath or cough. The family also mentioned that 3 days ago the patient had a fall but she did not receive any injuries nor did she hit her head. HPI is limited secondary to patient dementia. Pt denies LOC, headache, fevers, chills, diaphoresis, visual changes, neck pain, chest pain, breathing difficulties, nausea, vomiting, back pain, melena, hematochezia, urinary symptoms, numbness, weakness, lymphadenopathy, rash, or other complaints. REVIEW OF SYSTEMS: See HPI for pertinent positives and negatives. A total of ten systems were reviewed and were otherwise negative. PMHx/PSHx: Dementia, HTN, GERD, Parkinson's disease, UTI, Compression fractures of L and T spine, DVT, DM, HLD, Hiatal hernia, and Schatzki's ring. SOCIAL HISTORY: Patient lives at an assisted living facility. PHYSICAL EXAM: GENERAL: Awake, alert, uncomfortable-appearing, in no distress HENT: Normocephalic, atraumatic. Tympanitic and moderately distended. Oropharynx unremarkable. Dry mucous membranes. EYES: Pale conjunctiva. Sclera non-icteric. NECK: Inspection normal. Non-tender. Supple. No nuchal rigidity. FROM. No masses. RESPIRATORY: Clear to auscultation. No wheezes. No rales. Normal respiratory effort. CARDIAC: Normal rate. Normal rhythm. No murmurs. No rubs. Extremities warm and well perfused. Pulses equal. No JVD. GI: Soft, non-distended. Left lower quadrant abdominal tenderness. No rebound or guarding. No masses. RECTAL: Deferred. MUSCULOSKELETAL: Atraumatic. Chest examination reveals no tenderness. The back is symmetrical on inspection without obvious abnormality. There is no CVA tenderness to palpation. No joint edema. LOWER EXTREMITIES: Calves are equal size bilaterally and non-tender. 2+ edema. No discoloration. NEURO: Demented sensorium. No sensory or motor deficits noted. SKIN: No rash or jaundice noted. EMERGENCY DEPARTMENT COURSE: 1337:The patient was evaluated in room B5, and a complete history and physical examination were performed. 1527: I checked on and updated the patient and her . 1633: I discussed the case with Dr. Montgomery-[facility] Hospitalist who accepts the patient for further evaluation. Dr. Montgomery requests a surgical consult. 1711: I discussed the case with Dr. Bowie-Surgery who agrees to be on consult for the patient. MEDICAL DECISION MAKING: Triage Nursing notes reviewed and agree them. Additional history obtained from patient's .. The patient's history was concerning for abdominal pain and diarrhea. Differential diagnosis: Etiologies such as dehydration, gastroenteritis, infectious diarrhea, appendicitis, diverticulitis, PUD, biliary pathology, UTI, pancreatitis, obstruction, mesenteric ischemia, aortic pathology, infections, inflammatory bowel disease, renal colic, as well as others were entertained. Physical examination findings: As above. Mildly distended and tympanic abdomen. Dry mucous membrane's. ER treatment provided: Normal saline hydration On reassessment the patient felt better. Diagnostics interpreted by me: ECG: No acute ischemia. No dysrhythmia. The labs revealed a mild leukocytosis and anemia on CBC. Chemistry panel revealed acute kidney injury with an elevated creatinine of 2.2. Dehydration present with an elevated BUN to creatinine ratio. Patient does have mildly elevated troponin but did not complain of any chest pain. Urinalysis is abnormal but not clearly consistent with infection. Culture pending. Lactate negative. Imaging studies: CT imaging revealed a significant ileus without evidence of perforation, obstruction or abscess. Chest x-ray was abnormal and radiology requested CT imaging of the chest. CT imaging of the chest was performed and no evidence of abnormal pathology noted. Abnormal chest x-ray was felt to be technical. Consultation: A consultation was placed with the [facility] hospitalist on-call, Dr Montgomery. The case was discussed and diagnostics were reviewed. The patient was evaluated in the ER for further treatment. Internal medicine did ask for a surgery consult due to the ileus and distended colon. I did discuss the case with Dr. Bowie and she will evaluate the patient is surgical consultation. IMPRESSION: Lower abdominal pain Ileus Diarrhea Leukocytosis VELMA Dehydration Elevated troponin PLAN: Being evaluated by the hospitalist. The scribe's documentation has been prepared under my direction and personally reviewed by me in its entirety. I confirm that the note above accurately reflects all work, treatment, procedures, and medical decision making performed by me. Impression & Plan Lower abdominal pain, Ileus, Diarrhea, Leukocytosis, VELMA (acute kidney injury), Dehydration Past Med/Surg History Medical History Abnormality of lung on chest x-ray Allergic rhinitis Aortic atherosclerosis Bilateral lower extremity edema Cancer SKIN CANCER, REMOVED. Chronic back pain Chronic kidney disease Chronic osteoarthritis Confusion AT TIMES. POSSIBLE EARLY STAGES OF DEMENTIA Coronary artery calcification Cyst of ovary Daytime somnolence Diabetes mellitus Dyslipidemia Esophageal dysmotility Fibroids Fuchs' corneal dystrophy Gait apraxia GERD (gastroesophageal reflux disease) Hemorrhoid (Resolved) Hepatic steatosis Hiatal hernia History of dry mouth History of esophageal dilatation Last one 10/2017 Propofol 120mg, Lidocaine 40mg IV HTN (hypertension) (Chronic) Hydronephrosis, right Hypercholesterolemia Hyperlipidemia Hyponatremia Idiopathic polyneuropathy Limited mobility Low back pain Mild cognitive impairment Muscular weakness Osteoarthritis Osteopenia Parkinson disease Recurrent falls Schatzki's ring Tendonitis, calcific, shoulder Urinary frequency Weight loss Surgical History History of arthroscopy KNEE (UNSURE OF SIDE) History of cholecystectomy History of colonoscopy History of esophagogastroduodenoscopy (EGD) Family History Unknown Stroke syndrome Mother Cardiac disorder Daughter Malignant neoplasm of female breast Other Family history non-contributory Social History Preferred Language: Norwegian Communication Ability: Effective Security Director Required: No Beliefs That Will Affect Care: None marital status: Life Partner Current Living Situation Comment: Lives with friend current occupational status: retired Feels Safe at Home: Yes Smoking Status: Never smoker Second Hand Exposure: No ; Hx Alcohol Use: No Hx Substance Use: No Results & Data Vital Signs Vital Signs - 24 hr 04/25/19 12:07 04/25/19 13:57 04/25/19 15:30 Temperature 36.9 C Temperature Source Oral Pulse Rate 81 Pulse Rate [Apical] 83 77 Pulse Rhythm Regular Pulse Strength Normal Respiratory Rate 18 20 20 Respiratory Effort / Characteristics Non-Labored Spontaneous Non-Labored Spontaneous Respiratory Depth Normal Respiratory Pattern Regular Blood Pressure 121/75 Blood Pressure [Right Arm] 122/72 120/70 Blood Pressure Mean 90 Blood Pressure Mean [Right Arm] 88 86 Pulse Oximetry 95 95 95 Oxygen Delivery Method Room Air Room Air Sepsis Recent Fever Within 48 Hours No Sepsis Action Taken by Nursing No Action Required 04/25/19 17:03 04/25/19 18:00 Temperature Temperature Source Pulse Rate Pulse Rate [Apical] 72 72 Pulse Rhythm Pulse Strength Respiratory Rate 18 20 Respiratory Effort / Characteristics Respiratory Depth Respiratory Pattern Blood Pressure Blood Pressure [Right Arm] 124/76 122/73 Blood Pressure Mean Blood Pressure Mean [Right Arm] 92 89 Pulse Oximetry 98 98 Oxygen Delivery Method Sepsis Recent Fever Within 48 Hours Sepsis Action Taken by Care Home Medications Current Medication List: was personally reviewed by me Laboratory Data Attestation: I reviewed the patient's lab results. Result diagrams: 04/25/19 14:18 04/25/19 14:18 Lab Results 04/25/19 04/25/19 04/25/19 Range/Units 12:04 14:18 14:18 WBC 11.77 H (4.8-10.8) K/uL RBC 4.03 L (4.2-5.4) M/uL Hgb 11.4 L (12.0-16.0) g/dL Hct 36.4 L (37-47) % MCV 90.3 (80-100) fL MCH 28.3 (25-34) pg MCHC 31.3 L (32-36) g/dL RDW Std Deviation 48.2 H (36.4-46.3) fL RDW Coeff of Jer 14.8 H (11.5-14.5) % Plt Count 170 (130-400) K/uL MPV 11.0 H (7.4-10.4) fL Immature Gran % (Auto) 0.8 % Neut % (Auto) 79.2 % Lymph % (Auto) 11.7 % [place] % (Auto) 7.8 % Eos % (Auto) 0.3 % Baso % (Auto) 0.2 % Immature Gran # (Auto) 0.10 H (0.00-0.02) K/uL Neut # (Auto) 9.32 H (1.4-6.5) K/uL Lymph # (Auto) 1.38 (1.2-3.4) K/uL [place] # (Auto) 0.92 H (0.11-0.59) K/uL Eos # (Auto) 0.03 (0-0.5) K/uL Baso # (Auto) 0.02 (0-0.2) K/uL Absolute Nucleated RBC 0.02 H (0-0) K/uL Nucleated RBC % (auto) 0.2 % Sodium 138 (136-145) mmol/L Potassium 4.8 (3.5-5.1) mmol/L Chloride 107 (98-107) mmol/L Carbon Dioxide 23 (21-32) mmol/L Anion Gap 8.0 (3-11) BUN 63 H (7-18) mg/dl Creatinine 2.20 H (0.6-1.2) mg/dl Est Cr Clr Drug Dosing Not Reportable Est GFR ( Amer) 23.4 Est GFR (Non-Af Amer) 20.2 BUN/Creatinine Ratio 28.5 H (10-20) Glucose 129 H (70-99) mg/dl Lactate (0.4-2.0) mmol/L Calcium 10.1 (8.5-10.1) mg/dl Total Bilirubin 0.7 (0.2-1) mg/dl AST 22 (15-37) U/L ALT 9 L (12-78) U/L Alkaline Phosphatase 70 (45-117) U/L Troponin I (0-0.045) ng/ml Total Protein 7.6 (6.4-8.2) gm/dl Albumin 3.4 (3.4-5.0) gm/dl Globulin 4.2 H (2.5-4.0) gm/dl Albumin/Globulin Ratio 0.8 L (0.9-2) Lipase 232 (73-393) U/L Urine Color Yellow Urine Appearance Turbid A (Clear) Urine pH 5.0 (4.5-7.5) Ur Specific [place] 1.019 (1.000-1.030) Urine Protein 1+ H (Negative) Urine Glucose (UA) Negative (Negative) Urine Ketones Negative (Negative) Urine Blood Negative (Negative) Urine Nitrite Negative (Negative) Urine Bilirubin Negative (Negative) Urine Urobilinogen Negative (Negative) Ur Leukocyte Esterase 2+ H (Negative) Urine WBC (Auto) 10-30 H (0-5) /hpf Urine RBC (Auto) >30 H (0-4) /hpf U Hyaline Cast (Auto) 10-30 H (0-5) /lpf U Epithel Cells (Auto) >30 H (0-5) /lpf Urine Bacteria (Auto) Negative (Negative) Ur Renal Epithelial Cell 0-5 (0-5) /lpf Urine Yeast Not Reportable 04/25/19 04/25/19 Range/Units 17:05 17:05 WBC (4.8-10.8) K/uL RBC (4.2-5.4) M/uL Hgb (12.0-16.0) g/dL Hct (37-47) % MCV (80-100) fL MCH (25-34) pg MCHC (32-36) g/dL RDW Std Deviation (36.4-46.3) fL RDW Coeff of Jer (11.5-14.5) % Plt Count (130-400) K/uL MPV (7.4-10.4) fL Immature Gran % (Auto) % Neut % (Auto) % Lymph % (Auto) % [place] % (Auto) % Eos % (Auto) % Baso % (Auto) % Immature Gran # (Auto) (0.00-0.02) K/uL Neut # (Auto) (1.4-6.5) K/uL Lymph # (Auto) (1.2-3.4) K/uL [place] # (Auto) (0.11-0.59) K/uL Eos # (Auto) (0-0.5) K/uL Baso # (Auto) (0-0.2) K/uL Absolute Nucleated RBC (0-0) K/uL Nucleated RBC % (auto) % Sodium (136-145) mmol/L Potassium (3.5-5.1) mmol/L Chloride (98-107) mmol/L Carbon Dioxide (21-32) mmol/L Anion Gap (3-11) BUN (7-18) mg/dl Creatinine (0.6-1.2) mg/dl Est Cr Clr Drug Dosing Est GFR ( Amer) Est GFR (Non-Af Amer) BUN/Creatinine Ratio (10-20) Glucose (70-99) mg/dl Lactate 1.6 (0.4-2.0) mmol/L Calcium (8.5-10.1) mg/dl Total Bilirubin (0.2-1) mg/dl AST (15-37) U/L ALT (12-78) U/L Alkaline Phosphatase (45-117) U/L Troponin I 0.067 H* (0-0.045) ng/ml Total Protein (6.4-8.2) gm/dl Albumin (3.4-5.0) gm/dl Globulin (2.5-4.0) gm/dl Albumin/Globulin Ratio (0.9-2) Lipase (73-393) U/L Urine Color Urine Appearance (Clear) Urine pH (4.5-7.5) Ur Specific [place] (1.000-1.030) Urine Protein (Negative) Urine Glucose (UA) (Negative) Urine Ketones (Negative) Urine Blood (Negative) Urine Nitrite (Negative) Urine Bilirubin (Negative) Urine Urobilinogen (Negative) Ur Leukocyte Esterase (Negative) Urine WBC (Auto) (0-5) /hpf Urine RBC (Auto) (0-4) /hpf U Hyaline Cast (Auto) (0-5) /lpf U Epithel Cells (Auto) (0-5) /lpf Urine Bacteria (Auto) (Negative) Ur Renal Epithelial Cell (0-5) /lpf Urine Yeast Administered Medications Sodium Chloride (Nss 1000ml) 1,000 mls @ 125 mls/hr IV .Q8H ARELIS Stop: 05/25/19 13:44 Last Admin: 04/25/19 14:14 Dose: 125 mls/hr Documented by: [id number] Discontinued Medications Sodium Chloride (Nss 1000ml) 500 mls @ 999 mls/hr IV .Q31M ONE Stop: 04/25/19 14:09 Last Infusion: 04/25/19 14:59 Dose: 0 mls/hr Documented by: [id number] Admin: 04/25/19 13:56 Dose: 999 mls/hr Documented by: [id number] Imaging Data Radiologist's Impression: Radiology results as stated below per my review and t he radiologist's interpretation: XR chest 1V portable HISTORY: 84 years-old Female cough acute cough COMPARISON: Chest radiograph 11/12/2018 TECHNIQUE: Portable AP view of the chest FINDINGS: Cardiac silhouette is mildly enlarged, unchanged. There is a new right suprahil ar/paratracheal opacity which appears somewhat masslike measuring up to approximately 4.1 cm. Calcified plaque of the thoracic aortic arch. No pneumothorax, pleural effusion or overt pulmonary edema. Patient is slightly rotated. Mild subsegmental left basilar atelectasis. Degenerative changes of the shoulders and spine. Cholecystectomy. Mild gaseous distention of the bowel within the upper abdomen. IMPRESSION: 1. 4.1 cm right paratracheal/suprahilar opacity is new from prior study. Airspace disease versus underlying lesion are the differential considerations. This finding may also be accentuated by mild patient rotation with normal right hilar structures. Correlation with follow-up CT of the chest recommended. 2. Mild cardiomegaly. The above report was generated using voice recognition software. It may contain grammatical, syntax or spelling errors. Electronically signed by: J Carlos Rosa M.D. 04/25/2019 3:[address] OF THE CHEST WITHOUT IV CONTRAST CLINICAL HISTORY: Possible chest mass. Abnormal chest radiograph. COMPARISON STUDY: Chest CT July 18, 2018. Chest radiograph performed earlier today. CT DOSE: 420.27 mGy.cm TECHNIQUE: Axial images of the chest were obtained without IV contrast. Images were reviewed in the axial, sagittal, and coronal planes. IV contrast was not administered for this examination. Automated exposure control was utilized for the study. A dose lowering technique was utilized adhering to the principles of ALARA. FINDINGS: Mild cardiomegaly is noted. There is moderate coronary artery calcification. No pericardial effusion is noted. There is no pneumothorax. There are trace bilateral pleural effusions. Scattered subpleural opacities reflect atelectasis. There is no consolidation to suggest pneumonia. There are no suspicious findings within the lungs. The possible abnormality and chest radiograph performed earlier today is due to pulmonary vessels. No suspicious osseous lesions are noted. A moderate sized hiatal hernia is noted. Bowel dilatation is partially imaged on this exam. This is better depicted on the CT of the abdomen performed earlier today. Several calcified granulomas are noted. IMPRESSION: 1. No suspicious findings within the chest. The possible abnormality on prior chest radiograph was due to normal vessels. 2. Trace bilateral pleural effusions. 3. Moderate sized hiatal hernia. Electronically signed by: Maximo Matthew M.D. 04/25/2019 4:[address] abd pelvis wo con CLINICAL HISTORY: 84 years-old Female presenting with LLQ pain, abd distension, diarrhea, alzheimer. TECHNIQUE: Multidetector CT of the abdomen and pelvis was performed without the use of intravenous contrast. IV contrast: None. One or more dose lowering techniques were used consistent with the principles of ALARA (as low as reasonably achievable), including automatic exposure control, mA or kV adjustment to individual patient size, and/or use of iterative reconstruction. COMPARISON: 11/12/2018. CT DOSE (mGy.cm): The estimated cumulative dose is 1144.78 mGy.cm. FINDINGS: Dynamics Ax Consultant topogram: Gaseous distended bowel. Lung bases: Mild multichamber enlargement of the heart. Coronary artery, aortic valve, and mitral annular calcification. Small bilateral pleural effusions. Dependent passive atelectasis related to the pleural effusions. Liver: Normal morphology. Normal density. Biliary: No gross biliary ductal dilatation allowing for noncontrast technique. Normal gallbladder. Pancreas: Mild parenchymal atrophy. Spleen: Normal noncontrast appearance. Adrenal glands: Normal noncontrast appearance. Kidneys and ureters: Normal noncontrast appearance. No nephrolithiasis. No hydronephrosis. Normal ureters. Bladder: The configuration of the bladder suggests pelvic ligamentous laxity. Bladder otherwise normal. Pelvic organs: Normal noncontrast appearance. Bowel: Mild wall thickening of the mid to inferior rectum with possible rectal descent due to pelvic floor laxity suspected. The appearance is similar to prior. Gaseous distended colon without evidence of obstruction. No other sites of colonic wall thickening. The appendix is normal. Diffuse mild gaseous distention of small bowel without evidence of obstruction. Moderate sliding type hiatal hernia. Peritoneal cavity: No free fluid or intraperitoneal gas. Lymph nodes: Left external iliac ovoid nodule appears to be fluid density as on prior exam, possibly a small lymphocele. This is not suspected to represent a lymph node. No pathologically enlarged lymph nodes in the abdomen or pelvis. Sca ttered subcentimeter upper abdominal retroperitoneal lymph nodes similar to prior exam and nonspecific. Vasculature: Atherosclerosis of the normal caliber abdominal aorta. Abdominal wall: Mild body wall edema. Musculoskeletal: Degenerative changes of the spine. Moderate to severe compression deformity of T12 unchanged from prior. IMPRESSION: 1. Nonspecific mild gaseous distention of small and large bowel. No inflammatory changes or evidence of obstruction. This could represent ileus. 2. Allowing for noncontrast technique, no other evidence of acute intra- abdominal pathology. 3. Pelvic floor incompetence/laxity suspected with rectal descent. The mild degree of mid to lower rectal wall thickening is nonspecific and unchanged from prior. Correlate clinically to exclude a mild proctitis. 4. Moderate hiatal hernia. 5. Mild cardiomegaly with small bilateral pleural effusions and bibasilar atelectasis. Electronically signed by: Arun Thomas M.D. 04/25/2019 2:59 PM ECG Data Attestation: I personally reviewed and interpreted this ECG as follows: Indication: + abdominal pain Rate (beats per minute): 75 Rhythm: normal sinus ECG Intervals/blocks: + Normal QRS ECG [place]: + Left axis deviation ECG ST segments: no ST depression and no ST elevation ECG Findings: + Q waves (septal); no PACs and no PVCs Blood Pressure Blood Pressure Findings: Normal blood pressure Discharge Plan Visit Data Chief Complaint: Abdominal Pain ED Provider: Dong Palafox Discharge Problem: Lower abdominal pain, Ileus, Diarrhea, Leukocytosis, VELMA (acute kidney injury), Dehydration Patient Disposition: Being Evaluated by Hospitalist Forms Stand Alone Forms: [facility] Prescriptions Prescriptions: No Action (DME) miscellaneous medical supply misc See Dose Instructions .ROUTE .MEDSUPPLY Qty: 1 RF: 0 carbidopa-levodopa 25-100 mg tablet 1 tab PO QID 90 Days Qty: 360 RF: 1 mirtazapine 15 mg tablet 15 mg PO HS Qty: 30 RF: 2 potassium chloride 20 mEq tablet extended release 20 meq PO BID Qty: 180 RF: 0 tramadol 50 mg tablet 50 mg PO HS Qty: 30 RF: 2 mometasone 50 mcg/actuation [place],Non-Aerosol 2 spray INTRANASAL QAM RF: 0 acetaminophen [Tylenol Extra Strength] 500 mg Tablet 1,000 mg PO TID PRN (Reason: pain/fever) RF: 0 cholecalciferol (vitamin D3) [Vitamin D3] 1,000 unit Tablet 3,000 unit PO QAM RF: 0 atorvastatin 10 mg Tablet 10 mg PO QAM RF: 0 cranberry 500 mg Capsule 500 mg PO BID RF: 0 metoprolol succinate [Toprol XL] 25 mg Tablet Extended Release 24 Hr 25 mg PO BID RF: 0 cetirizine 10 mg Tablet 5 mg PO DAILY PRN (Reason: Allergy Symptoms) RF: 0 folic acid 1 mg Tablet 1 mg PO QAM RF: 0 cyanocobalamin (vitamin B-12) [Vitamin B-12] 1,000 mcg Tablet 500 mcg PO QAM RF: 0 Centrum Chewables 8 mg-400 mcg- 10 mcg Tablet,Chewable 1 tab PO QAM RF: 0 polyethylene glycol 3350 [Miralax] 17 gram powder in packet 17 g PO QAM RF: 0 sennosides-docusate sodium [Senokot-S] 8.6-50 mg tablet 2 tab PO QAM RF: 0 calcitonin (salmon) 200 unit/actuation spray,non-aerosol 200 units NA QAM RF: 0 pantoprazole 40 mg tablet,delayed release (DR/EC) 40 mg PO QAM RF: 0 telmisartan 80 mg tablet 80 mg PO DAILY@1200 RF: 0 furosemide [Lasix] 20 mg tablet 20 mg PO QAM RF: 0 Referrals Referrals: RODERICK GILBERT [Primary Care Provider] - Discharge Problem: Diarrhea Qualifiers: Diarrhea type: unspecified type Qualified Code(s): R19.7 - Diarrhea, unspe cified Leukocytosis Qualifiers: Leukocytosis type: unspecified Qualified Code(s): D72.829 - Elevated white bloo d cell count, unspecified The scribe's documentation has been prepared under my direction and personally reviewed by me in its entirety. I confirm that the note above accurately reflects all work, treatment, procedures, and medical decision making performed by me.
[2019-04-25] MEDS: CARBIDOPA/LEVODOPA 25/100MG TAB PO SCH (21:09)
[2019-04-25] MEDS: MIRTAZAPINE TAB 15 MG TAB PO SCH (21:09)
[2019-04-25] MEDS: METOPROLOL SUCC 25MG EXT REL TAB PO SCH (21:09)
[2019-04-25] MEDS: TRAMADOL HCL 50 MG TABLET PO SCH (21:15)
[2019-04-25] MEDS: RASPBERRY SYRUP 5 ML UDP PO SCH (21:19)
[2019-04-25] MEDS: VANCOMYCIN HCL 250 MG/5 ML SOLN PO SCH (21:19)
[2019-04-25] MEDS: cefTRIAXone SODIUM 1,000 MG/50 ML BAG IV SCH (22:14)
[2019-04-25] MEDS: metroNIDAZOLE 500 MG/100 ML BAG IV SCH (23:01)
[2019-04-26 01:57] LABS: Hematocrit (blood only) 32.6 % (37-47); Hemoglobin 10.6 g/dL (12.0-16.0); Mean Corpuscular Hemoglobin 28.8 pg (25-34); Mean Corpuscular Hgb Conc 32.5 g/dL (32-36); Mean Corpuscular Volume 88.6 fL (80-100); Mean Platelet Volume 10.6 fL (7.4-10.4); Platelet Count 153 K/uL (130-400); RDW Coefficient of Variation 14.7 % (11.5-14.5); RDW Standard Deviation 47.5 fL (36.4-46.3); Red Blood Count 3.68 M/uL (4.2-5.4); White Blood Count 11.79 K/uL (4.8-10.8)
[2019-04-26 02:18] LABS: BUN Creatinine Ratio 31.6 (10-20); Calcium 9.7 mg/dl (8.5-10.1); Creatinine Clr Calc Pharmacy 25.1 ml/min; Est GFR (African American) 29.9; Est GFR (Non-African American) 25.8; Magnesium 2.7 mg/dl (1.8-2.4); Potassium 4.4 mmol/L (3.5-5.1)
[2019-04-26 02:23] LABS: Albumin Globulin Ratio 0.8 (0.9-2); Bilirubin,Total 0.5 mg/dl (0.2-1); Globulin 3.9 gm/dl (2.5-4.0); Total Protein 6.9 gm/dl (6.4-8.2); Troponin I 0.045 ng/ml (0-0.045)
[2019-04-26] MEDS: metroNIDAZOLE 500 MG/100 ML BAG IV SCH ×3 (05:58→20:27)
--- NOTE | 2019-04-26 07:10 | Ultrasound Report ---
BILATERAL LOWER EXTREMITY VENOUS DOPPLER HISTORY: Leg swelling COMPARISON STUDY: None. FINDINGS: Thrombus identified within the right superficial femoral vein and right popliteal vein. Int ermittent flow within the right posterior tibial vein also suggestive of nonocclusive thrombus. There is also thrombus identified within the left distal superficial femoral vein and left popliteal vein. The left calf vessels are patent. IMPRESSION: Bilateral lower extremity deep venous thrombosis as described above. Electronically signed by: Colten Brian M.D. 04/26/2019 7:09 AM
[2019-04-26] MEDS: POLYETHYLENE (MIRALAX) 17 GM PACK PO SCH (07:29)
[2019-04-26] MEDS: VANCOMYCIN HCL 250 MG/5 ML SOLN PO SCH (07:30)
[2019-04-26] MEDS: ATORVASTATIN 10 MG TAB PO SCH (07:31)
[2019-04-26] MEDS: CARBIDOPA/LEVODOPA 25/100MG TAB PO SCH ×4 (07:31→20:26)
[2019-04-26] MEDS: FOLIC ACID 1 MG TAB PO SCH (07:31)
[2019-04-26] MEDS: CYANOCOBALAMIN 500 MCG TABLET (VITAMIN B-12) PO SCH (07:31)
[2019-04-26] MEDS: DOCUSATE SODIUM/SENNA 50/8.6MG TAB PO SCH (07:31)
[2019-04-26] MEDS: METOPROLOL SUCC 25MG EXT REL TAB PO SCH ×2 (07:31→20:26)
[2019-04-26] MEDS: FLUTICASONE PROPIONATE NA SPR 16 GM BTL SCH (07:32)
[2019-04-26] MEDS: PANTOprazole 40 MG TAB PO SCH (07:32)
[2019-04-26] MEDS: LACTOBACILLUS ACIDOPHILUS 1 GM PACK PO SCH ×3 (07:32→16:02)
[2019-04-26] MEDS: cefTRIAXone SODIUM 1,000 MG/50 ML BAG IV SCH (08:30)
[2019-04-26] MEDS: RASPBERRY SYRUP 5 ML UDP PO SCH (09:41)
[2019-04-26] MEDS: SODIUM CHLORIDE 0.9% 1000ML 1,000 ML IV SCH ×2 (13:00→23:13)
--- NOTE | 2019-04-26 14:34 | Hospitalist Progress Note ---
Date of Service April 26, 2019 Assessment & Plan (1) Lower abdominal pain: In the presence of CT finding of proctitis also with some dilated loops of consistent with possible ileus more active bowels sounds today but she is a little distended continue Flagyl IV Also patient was started on ceftriaxone for UTI. awaiting stool sample to test for C diff, lack of sample would make C diff unlikely (2) Diarrhea: Rule out C. difficile once she provides a sample patient with h/o c diff infection she would not take the PO Vanco today, hold for now (3) VELMA (acute kidney injury): Likely ATN secondary to dehydration plus telmisartan plus Lasix Hold both meds Gentle IV fluid hydration Cr trending down slowly, more urine output via flynn repeat BMP in the morning (4) Dehydration: As above responding well to IV fluids can likely stop fluids tomorrow if PO intake improves (5) UTI (urinary tract infection): Present on admission Ordered urine culture/blood culture Ceftriaxone empirically 3 organisms on urine culture no growth on blood cultures continue Ceftriaxone for time being (6) Generalized weakness: Secondary to all of the above, will order physical therapy occupational therapy and also speech for swallow evaluation (7) DVT (deep venous thrombosis): bilateral DVT in superficial femoral, popliteal veins she does not get much activity according to her son will treat with Lovenox 1mg/kg q12 for now unsure she would be a good care home candidate for anticoagulation she does not even take aspirin due to h/o falls and intracranial bleed from a fall will ask vascular surgery to see on Sunday to consider IVC filter as alternative CTA chest on admission negative for PE Subjective patient pleasantly confused this morning says that her abdomen does not feel well, but then denies pain or nausea she has not had a loose stool since admission to collect for C diff testing reviewed results of Dopplers, shows bilateral DVT this is an issue given history of frequent falls, just fell this week, she does not even take aspirin due to h/o brain bleed will ask vascular for their recommendations reviewed labs, Cr down to 1.8 from 2.2 WBC 11k on admission, troponin negative urine culture with more than three types of organisms blood cultures no growth updated family, discussed plan for Lovenox, may consider IVC filter on Sunday if indicated will likely depend on PT/OT evaluations son says she is less of a fall risk now he said she should be full code Review of Systems Review of Systems: Unobtainable due to cognitive status (dementia) Physical Exam Constitutional: WD/WN, vitals as above Eyes: PERRL, conjunctivae normal, anicteric sclerae ENMT: external ear and nose normal, oropharynx normal Neck: trachea midline, no thyromegaly Respiratory: normal respiratory effort, lungs clear to auscultation Cardiovascular: RRR, no murmur, no edema Gastrointestinal (Abdomen): normal bowel sounds, soft, nontender, no hepatosplenomegaly Musculoskeletal: no cyanosis or clubbing, extremities motor strength 5/5 Skin: no rashes, warm and dry Neurologic: patellar DTR's 2+ bilat, sensation intact and PERRL, EOMI, accommodation nl, no face palsy, no dysarthria Psychiatric: A+Ox3, euthymic affect Lymphatic: no cervical or axillary lymphadenopathy Results & Data Vital Signs (Past 12 Hours) Vital Signs Temp Pulse Pulse Resp BP BP Pulse Ox 04/26/19 11:42 36.6 C 81 18 138/72 94 04/26/19 08:00 73 04/26/19 07:40 36.7 C 93 H 18 164/94 H 93 04/26/19 03:34 36.4 C L 77 20 130/66 95 Laboratory Results Laboratory Results - last 24 hr 04/25/19 04/25/19 04/25/19 14:18 17:05 17:05 WBC RBC Hgb Hct MCV MCH MCHC RDW Std Deviation RDW Coeff of Jer Plt Count MPV Sodium 138 Potassium 4.8 Chloride 107 Carbon Dioxide 23 Anion Gap 8.0 BUN 63 H Creatinine 2.20 H Est Cr Clr Drug Dosing Not Reportable Est GFR ( Amer) 23.4 Est GFR (Non-Af Amer) 20.2 BUN/Creatinine Ratio 28.5 H Glucose 129 H POC Glucose Lactate 1.6 Calcium 10.1 Magnesium Total Bilirubin 0.7 AST 22 ALT 9 L Alkaline Phosphatase 70 Troponin I 0.067 H* Total Protein 7.6 Albumin 3.4 Globulin 4.2 H Albumin/Globulin Ratio 0.8 L Lipase 232 Procalcitonin Nasal Screen MRSA (PCR) 04/25/19 04/25/19 04/25/19 19:43 21:00 21:02 WBC RBC Hgb Hct MCV MCH MCHC RDW Std Deviation RDW Coeff of Jer Plt Count MPV Sodium Potassium Chloride Carbon Dioxide Anion Gap BUN Creatinine Est Cr Clr Drug Dosing Est GFR ( Amer) Est GFR (Non-Af Amer) BUN/Creatinine Ratio Glucose POC Glucose Lactate Calcium Magnesium Total Bilirubin AST ALT Alkaline Phosphatase Troponin I 0.071 H* Total Protein Albumin Globulin Albumin/Globulin Ratio Lipase Procalcitonin 0.56 H Nasal Screen MRSA (PCR) Negative 04/26/19 04/26/19 04/26/19 01:42 01:42 07:23 WBC 11.79 H RBC 3.68 L Hgb 10.6 L Hct 32.6 L MCV 88.6 MCH 28.8 MCHC 32.5 RDW Std Deviation 47.5 H RDW Coeff of Jer 14.7 H Plt Count 153 MPV 10.6 H Sodium 140 Potassium 4.4 Chloride 110 H Carbon Dioxide 21 Anion Gap 9.0 BUN 57 H Creatinine 1.80 H D Est Cr Clr Drug Dosing 25.1 Est GFR ( Amer) 29.9 Est GFR (Non-Af Amer) 25.8 BUN/Creatinine Ratio 31.6 H Glucose 128 H POC Glucose 118 H Lactate Calcium 9.7 Magnesium 2.7 H Total Bilirubin 0.5 AST 19 ALT 7 L Alkaline Phosphatase 65 Troponin I 0.045 Total Protein 6.9 Albumin 3.0 L Globulin 3.9 Albumin/Globulin Ratio 0.8 L Lipase Procalcitonin Nasal Screen MRSA (PCR) 04/26/19 04/26/19 04/26/19 07:48 11:09 14:15 WBC RBC Hgb Hct MCV MCH MCHC RDW Std Deviation RDW Coeff of Jer Plt Count MPV Sodium Potassium Chloride Carbon Dioxide Anion Gap BUN Creatinine Est Cr Clr Drug Dosing Est GFR ( Amer) Est GFR (Non-Af Amer) BUN/Creatinine Ratio Glucose POC Glucose 250 H Lactate Calcium Magnesium Total Bilirubin AST ALT Alkaline Phosphatase Troponin I 0.045 Pending Total Protein Albumin Globulin Albumin/Globulin Ratio Lipase Procalcitonin Nasal Screen MRSA (PCR) Medications Administered Current Inpatient Medications Acetaminophen (Tylenol) 650 mg PO Q4H PRN PRN Reason: Pain or Fever Stop: 05/25/19 18:47 Al Hydrox/Mg Hydrox/Simethicone (Maalox) 15 ml PO Q4H PRN PRN Reason: Dyspepsia Stop: 05/25/19 18:47 Atorvastatin Calcium (Lipitor) 10 mg PO QAM [facility] Stop: 05/26/19 08:59 Last Admin: 04/26/19 07:31 Dose: 10 mg Documented by: Carbidopa/Levodopa (Sinemet 25/100 Mg) 1 tab PO QID [facility] Stop: 05/25/19 20:59 Last Admin: 04/26/19 07:31 Dose: 1 tab Documented by: Cyanocobalamin (Vitamin B-12) 500 mcg PO QAM [facility] Stop: 05/26/19 08:59 Last Admin: 04/26/19 07:31 Dose: 500 mcg Documented by: Fluticasone Propionate (Flonase) 2 sprays NA QAM [facility] Stop: 05/26/19 08:59 Last Admin: 04/26/19 07:32 Dose: 2 sprays Documented by: Folic Acid (Folvite) 1 mg PO QAM [facility] Stop: 05/26/19 08:59 Last Admin: 04/26/19 07:31 Dose: 1 mg Documented by: Sodium Chloride (Nss 1000ml) 1,000 mls @ 100 mls/hr IV .Q10H [facility] Stop: 05/25/19 18:59 Last Admin: 04/26/19 13:00 Dose: 100 mls/hr Documented by: Ceftriaxone Sodium (Rocephin) 1,000 mg in 50 mls @ 100 mls/hr IV DAILY [facility] Stop: 04/30/19 20:29 Last Infusion: 04/26/19 09:00 Dose: Infused Documented by: Metronidazole (Flagyl) 500 mg in 100 mls @ 100 mls/hr IV Q8H [facility] Stop: 05/05/19 20:59 Last Infusion: 04/26/19 14:00 Dose: Infused Documented by: Lactobacillus Acidophilus (Floranex Granules/Powder Packet) 1 gm PO TIDM [facility] Stop: 05/26/19 07:59 Last Admin: 04/26/19 13:00 Dose: 1 gm Documented by: Magnesium Hydroxide (Milk Of Magnesia) 30 ml PO Q12H PRN PRN Reason: Constipation Stop: 05/25/19 18:47 Metoprolol Succinate (Toprol Xl) 25 mg PO BID [facility] Stop: 05/25/19 20:59 Last Admin: 04/26/19 07:31 Dose: 25 mg Documented by: Mirtazapine (Remeron) 15 mg PO HS [facility] Stop: 05/25/19 20:59 Last Admin: 04/25/19 21:09 Dose: 15 mg Documented by: Pantoprazole Sodium (Protonix) 40 mg PO QAM [facility] Stop: 05/26/19 08:59 Last Admin: 04/26/19 07:32 Dose: 40 mg Documented by: Polyethylene Glycol (Miralax Powder Packet) 17 gm PO QAM [facility] Stop: 05/26/19 08:59 Last Admin: 04/26/19 07:29 Dose: 17 gm Documented by: Senna/Docusate Sodium (Senokot S) 2 tab PO QAM [facility] Stop: 05/26/19 08:59 Last Admin: 04/26/19 07:31 Dose: 2 tab Documented by: Tramadol HCl (Ultram) 50 mg PO HS [facility] Stop: 05/25/19 20:59 Last Admin: 04/25/19 21:15 Dose: 50 mg Documented by: Zolpidem Tartrate (Ambien) 5 mg PO HS PRN PRN Reason: Sleep Stop: 05/25/19 18:47 PG Care Time/CCT Total # of Minutes Spent Total Time Spent: 41 Total Time Spent with Patient: Total time spent is greater than 50% in coordination of care (as documented) at patient's floor/unit and/or counseling patient: (1) Diarrhea Diarrhea type: unspecified type Qualified Code(s): R19.7 - Diarrhea, unspecified
[2019-04-26] MEDS ORDERED: ENOXAPARIN 80 MG/0.8 ML SYR SQ SCH (16:00)
[2019-04-26] MEDS ORDERED: ENOXAPARIN 1 MG/KG SQ SCH (16:00)
[2019-04-26] MEDS: ACETAMINOPHEN 325 MG TAB PO PRN (17:37)
[2019-04-26] MEDS: MIRTAZAPINE TAB 15 MG TAB PO SCH (20:26)
[2019-04-26] MEDS: TRAMADOL HCL 50 MG TABLET PO SCH (20:26)
[2019-04-27] MEDS: ACETAMINOPHEN 325 MG TAB PO PRN (05:00)
[2019-04-27] MEDS: metroNIDAZOLE 500 MG/100 ML BAG IV SCH ×3 (05:07→21:06)
[2019-04-27 08:04] LABS: Basophils # (auto) 0.01 K/uL (0-0.2); Basophils % (auto) 0.1 %; Eosinophils # (auto) 0.08 K/uL (0-0.5); Eosinophils % (auto) 0.7 %; Hematocrit (blood only) 33.4 % (37-47); Hemoglobin 10.7 g/dL (12.0-16.0); Immature Granulocytes # (auto) 0.07 K/uL (0.00-0.02); Immature Granulocytes % (auto) 0.6 %; Lymphocytes # (auto) 1.22 K/uL (1.2-3.4); Lymphocytes % (auto) 11.3 %; Mean Corpuscular Hemoglobin 28.7 pg (25-34); Mean Corpuscular Volume 89.5 fL (80-100); Mean Platelet Volume 10.4 fL (7.4-10.4); Monocytes # (auto) 0.93 K/uL (0.11-0.59); Monocytes % (auto) 8.6 %; Neutrophils % (auto) 78.7 %; Platelet Count 156 K/uL (130-400); RDW Coefficient of Variation 14.5 % (11.5-14.5); RDW Standard Deviation 47.7 fL (36.4-46.3); Red Blood Count 3.73 M/uL (4.2-5.4); White Blood Count 10.81 K/uL (4.8-10.8)
[2019-04-27 08:38] LABS: BUN Creatinine Ratio 32.8 (10-20); Calcium 9.5 mg/dl (8.5-10.1); Creatinine Clr Calc Pharmacy 32.7 ml/min; Est GFR (African American) 40.1; Est GFR (Non-African American) 34.6; Potassium 3.4 mmol/L (3.5-5.1)
[2019-04-27] MEDS: CARBIDOPA/LEVODOPA 25/100MG TAB PO SCH ×2 (09:14→13:04)
[2019-04-27] MEDS: ATORVASTATIN 10 MG TAB PO SCH (09:15)
[2019-04-27] MEDS: SODIUM CHLORIDE 0.9% 1000ML 1,000 ML IV SCH (09:15)
[2019-04-27] MEDS: POLYETHYLENE (MIRALAX) 17 GM PACK PO SCH (09:15)
[2019-04-27] MEDS: PANTOprazole 40 MG TAB PO SCH (09:15)
[2019-04-27] MEDS: cefTRIAXone SODIUM 1,000 MG/50 ML BAG IV SCH (09:15)
[2019-04-27] MEDS: DOCUSATE SODIUM/SENNA 50/8.6MG TAB PO SCH (09:15)
[2019-04-27] MEDS: FLUTICASONE PROPIONATE NA SPR 16 GM BTL SCH (09:16)
[2019-04-27] MEDS: FOLIC ACID 1 MG TAB PO SCH (09:16)
[2019-04-27] MEDS: CYANOCOBALAMIN 500 MCG TABLET (VITAMIN B-12) PO SCH (09:16)
[2019-04-27] MEDS: LACTOBACILLUS ACIDOPHILUS 1 GM PACK PO SCH ×2 (09:16→11:50)
--- NOTE | 2019-04-27 10:08 | Hospitalist Progress Note ---
Date of Service April 27, 2019 Assessment & Plan (1) DVT (deep venous thrombosis): bilateral DVT in superficial femoral, popliteal veins she does not get much activity according to her son will treat with Lovenox 1mg/kg q12 for now will change to Heparin drip starting this evening because if she would need surgery would want to stop quickly unsure she would be a good [facility] candidate for anticoagulation she does not even take aspirin due to h/o falls and intracranial bleed from a fall will ask vascular surgery to see on Sunday to consider IVC filter as alternative CTA chest on admission negative for PE (2) Ileus: abdomen more distended, hypoactive bowel sounds, high pitched no BM, no flatus KUB shows marked dilation of bowels NGT placed, in good position on repeat KUB and CXR NGT placed because patient is high aspiration risk, if she would vomit could be catastrophic consult general surgery K low at 3.4, will replace with 40mEq of K in fluids (3) Lower abdominal pain: pain was all due to distension and ileus doubt proctitis? will continue Flagyl IV for now no relief with NGT as it is not putting out much (4) Diarrhea: report of diarrhea prior to admission, h/o C diff no diarrhea or flatus since admission C diff order cancelled due to lack of BM (5) VELMA (acute kidney injury): Likely ATN secondary to dehydration plus telmisartan plus Lasix Hold both meds since admission continue NSS + 40mEq of K at 80cc/hr Cr improved to 1.4 this morning K is 3.4 (6) Hypokalemia: 3.4, will add 40mEq of K to fluids want K > 4 with her ileus (7) Dehydration: As above responding well to IV fluids continue fluids since she is NPO (8) UTI (urinary tract infection): Present on admission Ordered urine culture/blood culture Ceftriaxone empirically 3 organisms on urine culture no growth on blood cultures continue Ceftriaxone for 7 days total, stop on 05/02 (9) Generalized weakness: Secondary to all of the above, will order physical therapy occupational therapy and also speech for swallow evaluation (10) Parkinsonism: unfortunately we will need to hold Sinemet with ileus (11) Dysphagia: did not do well with speech therapy, recommended nectar thick liquids was not tolerating them either RN could not get medications down this morning for now she is NPO will need to re-address once ileus resolved Subjective patient is in a little more distress today, abdomen more distended nectar thick liquids were recommended by speech, she cannot tolerate them at all RN tried to make them a little thinner, like honey liquids, still coughing and gagging the patient says she is very thirsty, just wants to drink no vomiting, but also no BM abdomen more distended, hypoactive bowel sounds on exam reviewed labs, Cr improved to 1.4, WBC is 10k, no growth on blood or urine cultures updated family at the bedside can move to surgical floor today, stable on telemetry will consult general surgery KUB with marked distension of bowels, consistent with ileus NGT placed at the bedside, in good position, no much out with low intermittent suction updated daughter at the bedside and son over the phone Review of Systems Review of Systems: All systems reviewed & are unremarkable except as noted in HPI & below Gastrointestinal: + abdominal pain, + bloating, + constipation and + problem reported (keeps saying she is thirsty); no nausea, no vomiting and no diarrhea/loose stools Physical Exam Constitutional: WD/WN, vitals as above Eyes: PERRL, conjunctivae normal, anicteric sclerae ENMT: external ear and nose normal, oropharynx normal (very dry mucous membranes) Neck: trachea midline, no thyromegaly Respiratory: normal respiratory effort, lungs clear to auscultation Cardiovascular: RRR, no murmur, no edema Gastrointestinal (Abdomen): Inspection/Auscultation: + abdomen distended (tense), + high-pitched sounds and + hypoactive bowel sounds Percussion/Palpation: + abdomen tender, + tympanic to percussion and + abdomen firm; no guarding and abdomen not rigid Musculoskeletal: no cyanosis or clubbing, extremities motor strength 5/5 Skin: no rashes, warm and dry Neurologic: patellar DTR's 2+ bilat, sensation intact and PERRL, EOMI, accommodation nl, no face palsy, no dysarthria Psychiatric: Orientation: alert, oriented to person and cooperative; + not oriented to place and + not oriented to time Lymphatic: no cervical or axillary lymphadenopathy Results & Data Vital Signs (Past 12 Hours) Vital Signs Temp Pulse Pulse Resp BP Pulse Ox 04/27/19 07:33 36.8 C 72 18 125/77 96 04/27/19 04:42 36.8 C 75 20 150/89 H 98 04/27/19 02:20 74 04/26/19 23:48 36.4 C L 78 22 135/86 94 Laboratory Results Laboratory Results - last 24 hr 04/26/19 04/26/19 04/26/19 11:09 14:15 16:08 WBC RBC Hgb Hct MCV MCH MCHC RDW Std Deviation RDW Coeff of Jer Plt Count MPV Immature Gran % (Auto) Neut % (Auto) Lymph % (Auto) Power % (Auto) Eos % (Auto) Baso % (Auto) Immature Gran # (Auto) Neut # (Auto) Lymph # (Auto) Power # (Auto) Eos # (Auto) Baso # (Auto) Sodium Potassium Chloride Carbon Dioxide Anion Gap BUN Creatinine Est Cr Clr Drug Dosing Est GFR ( Amer) Est GFR (Non-Af Amer) BUN/Creatinine Ratio Glucose POC Glucose 250 H 119 H Calcium Troponin I 0.055 H* 04/26/19 04/27/19 04/27/19 20:10 07:08 07:48 WBC 10.81 H RBC 3.73 L Hgb 10.7 L Hct 33.4 L MCV 89.5 MCH 28.7 MCHC 32.0 RDW Std Deviation 47.7 H RDW Coeff of Jer 14.5 Plt Count 156 MPV 10.4 Immature Gran % (Auto) 0.6 Neut % (Auto) 78.7 Lymph % (Auto) 11.3 Power % (Auto) 8.6 Eos % (Auto) 0.7 Baso % (Auto) 0.1 Immature Gran # (Auto) 0.07 H Neut # (Auto) 8.50 H Lymph # (Auto) 1.22 Power # (Auto) 0.93 H Eos # (Auto) 0.08 Baso # (Auto) 0.01 Sodium Potassium Chloride Carbon Dioxide Anion Gap BUN Creatinine Est Cr Clr Drug Dosing Est GFR ( Amer) Est GFR (Non-Af Amer) BUN/Creatinine Ratio Glucose POC Glucose 124 H 137 H Calcium Troponin I 04/27/19 07:48 WBC RBC Hgb Hct MCV MCH MCHC RDW Std Deviation RDW Coeff of Jer Plt Count MPV Immature Gran % (Auto) Neut % (Auto) Lymph % (Auto) Power % (Auto) Eos % (Auto) Baso % (Auto) Immature Gran # (Auto) Neut # (Auto) Lymph # (Auto) Power # (Auto) Eos # (Auto) Baso # (Auto) Sodium 143 Potassium 3.4 L D Chloride 115 H Carbon Dioxide 20 L Anion Gap 8.0 BUN 46 H Creatinine 1.41 H D Est Cr Clr Drug Dosing 32.7 Est GFR ( Amer) 40.1 Est GFR (Non-Af Amer) 34.6 BUN/Creatinine Ratio 32.8 H Glucose 140 H POC Glucose Calcium 9.5 Troponin I Diagnostic Findings KUB HISTORY: Follow up study in a patient without distention Distension COMPARISON: CT abdomen and pelvis 04/25/2019, acute abdominal series radiographs 10/01/2018 FINDINGS: Persistent small and large bowel distention with large bowel loops measuring up to approximately 9.3 cm. Small bowel loops measure up to approximately 5.0 cm. The degree of distention appears similar to comparison CT exam. No pneumatosis or pneumoperitoneum. Cholecystectomy. Degenerative changes of the spine, pelvis and hips. Pelvic basin calcifications suggest phleboliths. IMPRESSION: 1. Persistent large and small bowel distention suggestive of ileus. 2. No pneumatosis or pneumoperitoneum identified. Medications Administered Current Inpatient Medications Acetaminophen (Tylenol) 650 mg PO Q4H PRN PRN Reason: Pain or Fever Stop: 05/25/19 18:47 Last Admin: 04/27/19 05:00 Dose: 650 mg Documented by: Al Hydrox/Mg Hydrox/Simethicone (Maalox) 15 ml PO Q4H PRN PRN Reason: Dyspepsia Stop: 05/25/19 18:47 Atorvastatin Calcium (Lipitor) 10 mg PO QAM [facility] Stop: 05/26/19 08:59 Last Admin: 04/27/19 09:15 Dose: 10 mg Documented by: Carbidopa/Levodopa (Sinemet 25/100 Mg) 1 tab PO QID [facility] Stop: 05/25/19 20:59 Last Admin: 04/27/19 09:14 Dose: 1 tab Documented by: Cyanocobalamin (Vitamin B-12) 500 mcg PO QAM [facility] Stop: 05/26/19 08:59 Last Admin: 04/27/19 09:16 Dose: 500 mcg Documented by: Enoxaparin Sodium (Lovenox) 80 mg SQ Q24H [facility] Stop: 05/26/19 15:59 Last Admin: 04/26/19 17:14 Dose: 80 mg Documented by: Fluticasone Propionate (Flonase) 2 sprays NA QAM [facility] Stop: 05/26/19 08:59 Last Admin: 04/27/19 09:16 Dose: 2 sprays Documented by: Folic Acid (Folvite) 1 mg PO QAM [facility] Stop: 05/26/19 08:59 Last Admin: 04/27/19 09:16 Dose: 1 mg Documented by: Sodium Chloride (Nss 1000ml) 1,000 mls @ 100 mls/hr IV .Q10H [facility] Stop: 05/25/19 18:59 Last Admin: 04/27/19 09:15 Dose: 100 mls/hr Documented by: Ceftriaxone Sodium (Rocephin) 1,000 mg in 50 mls @ 100 mls/hr IV DAILY [facility] Stop: 04/30/19 20:29 Last Admin: 04/27/19 09:15 Dose: 100 mls/hr Documented by: Metronidazole (Flagyl) 500 mg in 100 mls @ 100 mls/hr IV Q8H [facility] Stop: 05/05/19 20:59 Last Infusion: 04/27/19 06:15 Dose: Infused Documented by: Lactobacillus Acidophilus (Floranex Granules/Powder Packet) 1 gm PO TIDM [facility] Stop: 05/26/19 07:59 Last Admin: 04/27/19 09:16 Dose: 1 gm Documented by: Magnesium Hydroxide (Milk Of Magnesia) 30 ml PO Q12H PRN PRN Reason: Constipation Stop: 05/25/19 18:47 Metoprolol Succinate (Toprol Xl) 25 mg PO BID [facility] Stop: 05/25/19 20:59 Last Admin: 04/26/19 20:26 Dose: 25 mg Documented by: Mirtazapine (Remeron) 15 mg PO HS [facility] Stop: 05/25/19 20:59 Last Admin: 04/26/19 20:26 Dose: 15 mg Documented by: Pantoprazole Sodium (Protonix) 40 mg PO QAM [facility] Stop: 05/26/19 08:59 Last Admin: 04/27/19 09:15 Dose: 40 mg Documented by: Polyethylene Glycol (Miralax Powder Packet) 17 gm PO QAM [facility] Stop: 05/26/19 08:59 Last Admin: 04/27/19 09:15 Dose: 17 gm Documented by: Senna/Docusate Sodium (Senokot S) 2 tab PO QAM [facility] Stop: 05/26/19 08:59 Last Admin: 04/27/19 09:15 Dose: 2 tab Documented by: Tramadol HCl (Ultram) 50 mg PO HS [facility] Stop: 05/25/19 20:59 Last Admin: 04/26/19 20:26 Dose: 50 mg Documented by: Zolpidem Tartrate (Ambien) 5 mg PO HS PRN PRN Reason: Sleep Stop: 05/25/19 18:47 PG Care Time/CCT Total # of Minutes Spent Total Time Spent with Patient: Total time spent is greater than 50% in coordination of care (as documented) at patient's floor/unit and/or counseling patient: (1) Diarrhea Diarrhea type: unspecified type Qualified Code(s): R19.7 - Diarrhea, unspecified (2) Parkinsonism Parkinsonism type: unspecified Qualified Code(s): G20 - Parkinson's disease
[2019-04-27] MEDS: METOPROLOL SUCC 25MG EXT REL TAB PO SCH (10:13)
--- NOTE | 2019-04-27 10:32 | XRay Report ---
KUB HISTORY: Follow up study in a patient without distention Distension COMPARISON: CT abdomen and pelvis 04/25/2019, acute abdominal series radiographs 10/01/2018 FINDINGS: Persistent small and large bowel distention with large bowel loops measuring up to approxim ately 9.3 cm. Small bowel loops measure up to approximately 5.0 cm. The degree of distention appears similar to comparison CT exam. No pneumatosis or pneumoperitoneum. Cholecystectomy. Degenerative noe ges of the spine, pelvis and hips. Pelvic basin calcifications suggest phleboliths. IMPRESSION: 1. Persistent large and small bowel distention suggestive of ileus. 2. No pneumatosis or pneumoperitoneum identified. Electronically signed by: J Carlos Rosa M.D. 04/27/2019 10:31 AM
--- NOTE | 2019-04-27 11:27 | XRay Report ---
XR chest 1V portable, XR KUB/Abdomen 1 view HISTORY: 84 years-old Female NGT placement status post placement of an enteric tube COMPARISON: Chest radiograph, CT chest, abdomen and pelvis 04/25/2019 TECHNIQUE: Portable AP view of the chest with KUB radiograph FINDINGS: CHEST: Unchanged appearance of the cardiomediastinal and hilar silhouettes. Calcified plaque of the thoracic aortic arch. Trace pleural effusions. No pneumothorax or overt pulmonary edema. Moderate hiatal samara ia. Degenerative changes of the shoulders and spine. KUB: Persistent dilated small and large bowel loops are noted without pneumatosis or pneumoperitoneum. Sta tus post placement of an enteric tube, distal tip projected superiorly within the region of the proxi mal gastric body. Cholecystectomy. IMPRESSION: 1. No acute process of the chest. 2. Status post placement of an enteric tube, distal tip projected superiorly within the region of the mid gastric body. 3. Persistent small and large bowel dilation suggestive of ileus. 4. No pneumoperitoneum. The above report was generated using voice recognition software. It may contain grammatical, syntax o r spelling errors. Electronically signed by: J Carlos Rosa M.D. 04/27/2019 11:26 AM
[2019-04-27] MEDS: POTASSIUM CHLORIDE 40 MEQ in SODIUM CHLORIDE 0.9% 1000ML 1,000 ML IV SCH (11:50)
--- NOTE | 2019-04-27 13:36 | Surgery Consultation ---
Date of Consultation April 27, 2019 Assessment & Plan (1) Ileus: Exam shows increasingly distended abdomen with imaging c/w ileus. She just had a ng placed and this should hopefully help resolve the situation. Explained that there is no current urgent need for surgical intervention. If she does not improve, would repeat CT scan to better evaluate colon for wall thickening or for obstruction. Discussed with patient and family and they are agreeable. Will continue to monitor. History of Present Illness Reason for Consultation: distended abdomen Requesting Physician: Dr. Eddy Attending Physician: Edgar Eddy, History of Present Illness 84 yr old woman with multiple medical comorbidities was admitted on Sunday with diarrhea/ weakness. had over 4 loose stools, felt dehydrated, weak when standing up. Was given immodium. Admitted Sunday and CT scan showed evidence of proctitis, generalized dilation of large and small bowel. Has not had a bowel movement since . Has been receiving miralax and flagyl for presumed c. dificile infection (no stool yet to test). Developed nausea and vomiting following first dose of flagyl, second was mixed with miralax. Given progressive increase in abdominal distention with associated crampy pain, ng was placed. KUB again is c/w ileus with both large and small bowel dilation. Only prior abd surgery was a lap cholecystectomy. Has known hiatal hernia. NG tube tip in proximal stomach. Allergies Allergy/AdvReac Type Severity Reaction Status Date / Time Penicillins Allergy Intermediate Unknown Verified 04/25/19 14:33 atenolol Allergy Mild UNKNOWN Verified 04/25/19 14:33 chlorthalidone Allergy Mild UNKNOWN Verified 04/25/19 14:33 atorvastatin AdvReac Mild GI SYMPTOMS Verified 04/25/19 14:33 hydrochlorothiazide AdvReac Mild GI SYMPTOMS Verified 04/25/19 14:33 naproxen AdvReac Mild GI SYMPTOMS Verified 04/25/19 14:33 amoxicillin AdvReac Unknown diarrhea Verified 04/25/19 14:33 Cipro AdvReac Unknown nausea/vomi Verified 12/29/17 07:49 ting ciprofloxacin AdvReac Unknown nausea/vomi Verified 04/25/19 14:33 ting hydrocodone AdvReac Unknown n/v loss Verified 04/25/19 14:33 of appetite Home Medications Home Medications Medication Instructions Recorded Confirmed Type acetaminophen [Tylenol Extra 1,000 mg PO TID PRN 06/30/18 04/25/19 History Strength] atorvastatin 10 mg PO QAM 06/30/18 04/25/19 History cholecalciferol (vitamin D3) 3,000 unit PO QAM 06/30/18 04/25/19 History [Vitamin D3] mometasone 2 spray INTRANASAL QAM 06/30/18 04/25/19 History cranberry 500 mg PO BID 09/02/18 04/25/19 History metoprolol succinate [Toprol XL] 25 mg PO BID 10/03/18 04/25/19 History cetirizine 5 mg PO DAILY PRN 11/12/18 04/25/19 History folic acid 1 mg PO QAM 11/12/18 04/25/19 History miscellaneous medical supply #1 ea 11/22/18 12/31/18 Rx carbidopa 25 mg-levodopa 100 mg 1 tab PO QID 90 Days #360 tab 01/15/19 04/25/19 Rx tablet mirtazapine 15 mg tablet 15 mg PO HS #30 tab 02/11/19 04/25/19 Rx potassium chloride 20 mEq 20 meq PO BID #180 tab 02/14/19 04/25/19 Rx tablet,extended release tramadol 50 mg tablet 50 mg PO HS #30 tab 03/13/19 04/25/19 Rx calcitonin (salmon) 200 units NA QAM 04/25/19 04/25/19 History cyanocobalamin (vitamin B-12) 500 mcg PO QAM 04/25/19 04/25/19 History [Vitamin B-12] furosemide [Lasix] 20 mg PO QAM 04/25/19 04/25/19 History bcujwqjp-mrc-hzyv-folic-vit K1 1 tab PO QAM 04/25/19 04/25/19 History [Centrum Chewables] pantoprazole 40 mg PO QAM 04/25/19 04/25/19 History polyethylene glycol 3350 [Miralax] 17 g PO QAM 04/25/19 04/25/19 History sennosides-docusate sodium 2 tab PO QAM 04/25/19 04/25/19 History [Senokot-S] telmisartan 80 mg PO DAILY@1200 04/25/19 04/25/19 History Patient History Medical History Abnormality of lung on chest x-ray Allergic rhinitis Aortic atherosclerosis Bilateral lower extremity edema Cancer SKIN CANCER, REMOVED. Chronic back pain Chronic kidney disease Chronic osteoarthritis Confusion AT TIMES. POSSIBLE EARLY STAGES OF DEMENTIA Coronary artery calcification Cyst of ovary Daytime somnolence Diabetes mellitus Dyslipidemia Esophageal dysmotility Fibroids Fuchs' corneal dystrophy Gait apraxia GERD (gastroesophageal reflux disease) Hemorrhoid (Resolved) Hepatic steatosis Hiatal hernia History of dry mouth History of esophageal dilatation Last one 10/2017 Propofol 120mg, Lidocaine 40mg IV HTN (hypertension) (Chronic) Hydronephrosis, right Hypercholesterolemia Hyperlipidemia Hyponatremia Idiopathic polyneuropathy Limited mobility Low back pain Mild cognitive impairment Muscular weakness Osteoarthritis Osteopenia Parkinson disease Recurrent falls Schatzki's ring Tendonitis, calcific, shoulder Urinary frequency Weight loss Surgical History History of arthroscopy KNEE (UNSURE OF SIDE) History of cholecystectomy History of colonoscopy History of esophagogastroduodenoscopy (EGD) Family History Unknown Stroke syndrome Mother Cardiac disorder Daughter Malignant neoplasm of female breast Other Family history non-contributory Social History Preferred Language: German Communication Ability: Effective Talent Director Required: No Beliefs That Will Affect Care: None marital status: Life Partner Current Living Situation: Personal Care Facility Current Living Situation Comment: Lives with friend current occupational status: retired Feels Safe at Home: Yes Smoking Status: Never smoker Second Hand Exposure: No ; Hx Alcohol Use: Yes Hx Substance Use: No Review of Systems Constitutional: + weakness; no fever Eyes: no problem reported Cardiovascular: no problem reported Gastrointestinal: as per Subjective / HPI Genitourinary: had uti on admission urine Neurologic: parkinson's, gait ataxia Physical Exam Constitutional: + thin; no acute distress Eyes: + anicteric sclerae Respiratory: normal respiratory effort, lungs clear to auscultation Cardiovascular: Rate/Rhythm: regular rate and regular rhythm Gastrointestinal (Abdomen): tense, distended, few bowel tones, tender in right mid abdomen, no guarding Neurologic: no focal motor deficits Results & Data Vital Signs (Past 12 Hours) Vital Signs Temp Pulse Pulse Resp BP Pulse Ox 04/27/19 07:33 36.8 C 72 18 125/77 96 04/27/19 04:42 36.8 C 75 20 150/89 H 98 04/27/19 02:20 [address] 10.81 (down from 11) Diagnostic Findings KUB today and yesterday c/w ileus
[2019-04-27 15:33] LABS: Basophils # (auto) 0.01 K/uL (0-0.2); Basophils % (auto) 0.1 %; Eosinophils # (auto) 0.03 K/uL (0-0.5); Eosinophils % (auto) 0.2 %; Hematocrit (blood only) 37.2 % (37-47); Hemoglobin 11.9 g/dL (12.0-16.0); Immature Granulocytes # (auto) 0.09 K/uL (0.00-0.02); Immature Granulocytes % (auto) 0.7 %; Lymphocytes # (auto) 1.14 K/uL (1.2-3.4); Lymphocytes % (auto) 8.7 %; Mean Corpuscular Hemoglobin 28.9 pg (25-34); Mean Corpuscular Volume 90.3 fL (80-100); Monocytes # (auto) 1.09 K/uL (0.11-0.59); Monocytes % (auto) 8.4 %; Neutrophils # (auto) 10.69 K/uL (1.4-6.5); Neutrophils % (auto) 81.9 %; Platelet Count 172 K/uL (130-400); RDW Coefficient of Variation 14.7 % (11.5-14.5); RDW Standard Deviation 48.4 fL (36.4-46.3); Red Blood Count 4.12 M/uL (4.2-5.4); White Blood Count 13.05 K/uL (4.8-10.8)
[2019-04-27 15:46] LABS: INR 1.2 (0.9-1.1); Partial Thromboplastin Ratio 0.9; Partial Thromboplastin Time 25.5 Seconds (21.0-31.0); Prothrombin Time 12.5 Seconds (9.0-12.0)
[2019-04-27] MEDS: Heparin IV Standard *NO* Bolus IV SCH ×3 (16:09→16:16)
[2019-04-27] MEDS: HEPARIN SODIUM/DEXTROSE 25,000 UNITS/500 ML BAG IV SCH (16:09)
[2019-04-27] MEDS ORDERED: DiphenhydrAMINE HCL 50 MG/ML VIAL IV STA (20:16)
[2019-04-27 22:38] LABS: Partial Thromboplastin Ratio 2.4
[2019-04-27 22:40] LABS: Partial Thromboplastin Time 65.2 Seconds (21.0-31.0)
[2019-04-28] MEDS: POTASSIUM CHLORIDE 40 MEQ in SODIUM CHLORIDE 0.9% 1000ML 1,000 ML IV SCH ×2 (01:03→13:20)
[2019-04-28] MEDS: metroNIDAZOLE 500 MG/100 ML BAG IV SCH ×3 (04:47→21:09)
[2019-04-28 06:36] LABS: Basophils # (auto) 0.01 K/uL (0-0.2); Basophils % (auto) 0.1 %; Hematocrit (blood only) 36.2 % (37-47); Hemoglobin 11.9 g/dL (12.0-16.0); Immature Granulocytes # (auto) 0.14 K/uL (0.00-0.02); Immature Granulocytes % (auto) 0.9 %; Lymphocytes # (auto) 1.31 K/uL (1.2-3.4); Lymphocytes % (auto) 8.1 %; Mean Corpuscular Hemoglobin 29.5 pg (25-34); Mean Corpuscular Hgb Conc 32.9 g/dL (32-36); Mean Corpuscular Volume 89.8 fL (80-100); Mean Platelet Volume 11.6 fL (7.4-10.4); Monocytes # (auto) 1.35 K/uL (0.11-0.59); Monocytes % (auto) 8.4 %; Neutrophils # (auto) 13.35 K/uL (1.4-6.5); Neutrophils % (auto) 82.5 %; Platelet Count 174 K/uL (130-400); RDW Coefficient of Variation 14.8 % (11.5-14.5); RDW Standard Deviation 48.5 fL (36.4-46.3); Red Blood Count 4.03 M/uL (4.2-5.4); White Blood Count 16.16 K/uL (4.8-10.8)
[2019-04-28 07:04] LABS: BUN Creatinine Ratio 28.9 (10-20); Calcium 9.8 mg/dl (8.5-10.1); Creatinine Clr Calc Pharmacy 35.2 ml/min; Est GFR (African American) 43.8; Est GFR (Non-African American) 37.8; Potassium 3.3 mmol/L (3.5-5.1)
[2019-04-28] MEDS: cefTRIAXone SODIUM 1,000 MG/50 ML BAG IV SCH (08:51)
[2019-04-28] MEDS: FLUTICASONE PROPIONATE NA SPR 16 GM BTL SCH (08:53)
[2019-04-28 09:03] LABS: Partial Thromboplastin Time 82.6 Seconds (21.0-31.0)
--- NOTE | 2019-04-28 10:48 | Consultation ---
Date of Consultation April 28, 2019 Assessment & Plan (1) DVT (deep venous thrombosis): Pt with BLE DVT and extensive hx of falls, as well as ICH in 2017 while only on ASA. Pt wishes to proceed with IVC filter insertion if her son is agreeable. Spoke with her sig other, Mr Gregoria, who states that pts POA would be her son, Fausto. Attempted to call him, no answer. Can place IVC filter Sun or this week if pt is agreeable. Present on Admission?: Yes History of Present Illness Reason for Consultation: BLE DVT, fall risk Attending Physician: Jay Dos Santos History of Present Illness 84 yo f with multiple medical problems, including CKD, osteopenia, idiopathic polyneuropathy, DMII, CAD, dyslipidemia, HTN, recurrent falls, intracranial bleed after a fall, admitted d/t worsening generalized weakness, UTI, and ileus, seen in consultation today for possible IVC filter insertion d/t BLE DVT noted on US. Pt admits edema of BLE,unsure if worse than usual for her. Pt with dysphasia and very difficult to understand. Pt also apparently has difficulty ambulating, is unstable on her feet and afraid of walking, even with walker. Pt currently admits abd pain and distention. Denies other complaints. Pt denies hx of DVT in past. Venous US demonstrates BLE DVT NO CTA of chest performed d/t decreased renal fxn. Allergies Allergy/AdvReac Type Severity Reaction Status Date / Time Penicillins Allergy Intermediate Unknown Verified 04/25/19 14:33 atenolol Allergy Mild UNKNOWN Verified 04/25/19 14:33 chlorthalidone Allergy Mild UNKNOWN Verified 04/25/19 14:33 atorvastatin AdvReac Mild GI SYMPTOMS Verified 04/25/19 14:33 hydrochlorothiazide AdvReac Mild GI SYMPTOMS Verified 04/25/19 14:33 naproxen AdvReac Mild GI SYMPTOMS Verified 04/25/19 14:33 amoxicillin AdvReac Unknown diarrhea Verified 04/25/19 14:33 Cipro AdvReac Unknown nausea/vomi Verified 12/29/17 07:49 ting ciprofloxacin AdvReac Unknown nausea/vomi Verified 04/25/19 14:33 ting hydrocodone AdvReac Unknown n/v loss Verified 04/25/19 14:33 of appetite Home Medications Home Medications Medication Instructions Recorded Confirmed Type acetaminophen [Tylenol Extra 1,000 mg PO TID PRN 06/30/18 04/25/19 History Strength] atorvastatin 10 mg PO QAM 06/30/18 04/25/19 History cholecalciferol (vitamin D3) 3,000 unit PO QAM 06/30/18 04/25/19 History [Vitamin D3] mometasone 2 spray INTRANASAL QAM 06/30/18 04/25/19 History cranberry 500 mg PO BID 09/02/18 04/25/19 History metoprolol succinate [Toprol XL] 25 mg PO BID 10/03/18 04/25/19 History cetirizine 5 mg PO DAILY PRN 11/12/18 04/25/19 History folic acid 1 mg PO QAM 11/12/18 04/25/19 History miscellaneous medical supply #1 ea 11/22/18 12/31/18 Rx carbidopa 25 mg-levodopa 100 mg 1 tab PO QID 90 Days #360 tab 01/15/19 04/25/19 Rx tablet mirtazapine 15 mg tablet 15 mg PO HS #30 tab 02/11/19 04/25/19 Rx potassium chloride 20 mEq 20 meq PO BID #180 tab 02/14/19 04/25/19 Rx tablet,extended release tramadol 50 mg tablet 50 mg PO HS #30 tab 03/13/19 04/25/19 Rx calcitonin (salmon) 200 units NA QAM 04/25/19 04/25/19 History cyanocobalamin (vitamin B-12) 500 mcg PO QAM 04/25/19 04/25/19 History [Vitamin B-12] furosemide [Lasix] 20 mg PO QAM 04/25/19 04/25/19 History dkbecaph-faa-joja-folic-vit K1 1 tab PO QAM 04/25/19 04/25/19 History [Centrum Chewables] pantoprazole 40 mg PO QAM 04/25/19 04/25/19 History polyethylene glycol 3350 [Miralax] 17 g PO QAM 04/25/19 04/25/19 History sennosides-docusate sodium 2 tab PO QAM 04/25/19 04/25/19 History [Senokot-S] telmisartan 80 mg PO DAILY@1200 04/25/19 04/25/19 History Patient History Medical History Abnormality of lung on chest x-ray Allergic rhinitis Aortic atherosclerosis Bilateral lower extremity edema Cancer SKIN CANCER, REMOVED. Chronic back pain Chronic kidney disease Chronic osteoarthritis Confusion AT TIMES. POSSIBLE EARLY STAGES OF DEMENTIA Coronary artery calcification Cyst of ovary Daytime somnolence Diabetes mellitus Dyslipidemia Esophageal dysmotility Fibroids Fuchs' corneal dystrophy Gait apraxia GERD (gastroesophageal reflux disease) Hemorrhoid (Resolved) Hepatic steatosis Hiatal hernia History of dry mouth History of esophageal dilatation Last one 10/2017 Propofol 120mg, Lidocaine 40mg IV HTN (hypertension) (Chronic) Hydronephrosis, right Hypercholesterolemia Hyperlipidemia Hyponatremia Idiopathic polyneuropathy Limited mobility Low back pain Mild cognitive impairment Muscular weakness Osteoarthritis Osteopenia Parkinson disease Recurrent falls Schatzki's ring Tendonitis, calcific, shoulder Urinary frequency Weight loss Surgical History History of arthroscopy KNEE (UNSURE OF SIDE) History of cholecystectomy History of colonoscopy History of esophagogastroduodenoscopy (EGD) Family History Unknown Stroke syndrome Mother Cardiac disorder Daughter Malignant neoplasm of female breast Other Family history non-contributory Social History Preferred Language: Kiswahili Communication Ability: Effective Forensic Artist Required: No Beliefs That Will Affect Care: None marital status: Life Partner Current Living Situation: Personal Care Facility Current Living Situation Comment: Lives with friend current occupational status: retired Feels Safe at Home: Yes Smoking Status: Never smoker Second Hand Exposure: No ; Hx Alcohol Use: Yes Hx Substance Use: No Review of Systems Review of Systems: All systems reviewed & are unremarkable except as noted in HPI & below (difficult to understand. ) Physical Exam Constitutional: WD/WN, vitals as above + frail appearing (NG tube noted) and cooperative; not in distress and not combative Eyes: PERRL, conjunctivae normal, anicteric sclerae ENMT: external ear and nose normal, oropharynx normal Ears: no hearing impairment Neck: trachea midline Respiratory: normal respiratory effort, lungs clear to auscultation Cardiovascular: Rate/Rhythm: regular rate and regular rhythm Vessels: femoral pulses present, posterior tibial pulses present, dorsalis pedis pulses present, brachial pulses present and radial pulses present; + abnormal peripheral pulses Extremities: + edema (BLE, +2 pitting) Gastrointestinal (Abdomen): Inspection/Auscultation: + abdomen distended Percussion/Palpation: + abdomen tender and + abdomen rigid Musculoskeletal: no cyanosis or clubbing, extremities motor strength 5/5 Skin: no rashes, warm and dry Neurologic: moves all extremities and awake; no focal motor deficits Speech / Cognition: + abnormal speech Psychiatric: Orientation: alert and oriented x 3 Affect: + irritable affect Results & Data Vital Signs (Past 12 Hours) Vital Signs Temp Pulse Resp BP Pulse Ox 04/28/19 07:09 36.3 C L 74 22 157/83 H 97
[2019-04-28] MEDS: HEPARIN SODIUM/DEXTROSE 25,000 UNITS/500 ML BAG IV SCH (13:21)
--- NOTE | 2019-04-28 13:40 | Surgery Progress Note ---
Date of Service April 28, 2019 Assessment & Plan (1) Ileus: no return of bowel function yet minimal NGT output but still moderately distended leukocytosis of 16K (13K yesterday) Plan: Continue NGT to LIS Continue NPO May need to repeat CT scan of abd/pelvis tomorrow with oral and IV contrast (Oral contrast via NGT?) given elevation in leukocytosis and persistent abdominal distention. continue medical management Dr. martinez to see patient this afternoon. Subjective feeling better today no abdominal pain but still feels bloated, same as yesterday no flatus or bowel movement no n/v Physical Exam Constitutional: no acute distress elderly female Respiratory: Auscultation: + wheezes (audible) Gastrointestinal (Abdomen): Inspection/Auscultation: + abdomen distended; + abnormal bowel sounds Percussion/Palpation: abdomen nontender, no guarding, abdomen not rigid and + abdomen not soft (firm given distention and position no peritonitis) Skin: no rashes, warm and dry Psychiatric: Orientation: alert Results & Data Vital Signs (Past 12 Hours) Vital Signs Temp Pulse Resp BP Pulse Ox 04/28/19 07:09 36.3 C L 74 22 157/83 H 97 Laboratory Results 04/28/19 04/28/19 04/28/19 Range/Units 08:20 05:50 05:50 WBC 16.16 H (4.8-10.8) K/uL RBC 4.03 L (4.2-5.4) M/uL Hgb 11.9 L (12.0-16.0) g/dL Hct 36.2 L (37-47) % MCV 89.8 (80-100) fL MCH 29.5 (25-34) pg MCHC 32.9 (32-36) g/dL RDW Std Deviation 48.5 H (36.4-46.3) fL RDW Coeff of Jer 14.8 H (11.5-14.5) % Plt Count 174 (130-400) K/uL MPV 11.6 H (7.4-10.4) fL Immature Gran % (Auto) 0.9 % Neut % (Auto) 82.5 % Lymph % (Auto) 8.1 % [place] % (Auto) 8.4 % Eos % (Auto) 0.0 % Baso % (Auto) 0.1 % Immature Gran # (Auto) 0.14 H (0.00-0.02) K/uL Neut # (Auto) 13.35 H (1.4-6.5) K/uL Lymph # (Auto) 1.31 (1.2-3.4) K/uL [place] # (Auto) 1.35 H (0.11-0.59) K/uL Eos # (Auto) 0.00 (0-0.5) K/uL Baso # (Auto) 0.01 (0-0.2) K/uL PT (9.0-12.0) Seconds INR (0.9-1.1) APTT 82.6 H* (21.0-31.0) Seconds PTT Ratio 3.0 Sodium 146 H (136-145) mmol/L Potassium 3.3 L (3.5-5.1) mmol/L Chloride 118 H (98-107) mmol/L Carbon Dioxide 18 L (21-32) mmol/L Anion Gap 10.0 (3-11) BUN 38 H (7-18) mg/dl Creatinine 1.31 H (0.6-1.2) mg/dl Est Cr Clr Drug Dosing 35.2 ml/min Est GFR ( Amer) 43.8 Est GFR (Non-Af Amer) 37.8 BUN/Creatinine Ratio 28.9 H (10-20) Glucose 135 H (70-99) mg/dl Calcium 9.8 (8.5-10.1) mg/dl 04/27/19 04/27/19 04/27/19 Range/Units 22:09 15:16 15:16 WBC (4.8-10.8) K/uL RBC (4.2-5.4) M/uL Hgb (12.0-16.0) g/dL Hct (37-47) % MCV (80-100) fL MCH (25-34) pg MCHC (32-36) g/dL RDW Std Deviation (36.4-46.3) fL RDW Coeff of Jer (11.5-14.5) % Plt Count (130-400) K/uL MPV (7.4-10.4) fL Immature Gran % (Auto) % Neut % (Auto) % Lymph % (Auto) % [place] % (Auto) % Eos % (Auto) % Baso % (Auto) % Immature Gran # (Auto) (0.00-0.02) K/uL Neut # (Auto) (1.4-6.5) K/uL Lymph # (Auto) (1.2-3.4) K/uL [place] # (Auto) (0.11-0.59) K/uL Eos # (Auto) (0-0.5) K/uL Baso # (Auto) (0-0.2) K/uL PT 12.5 H (9.0-12.0) Seconds INR 1.2 H (0.9-1.1) APTT 65.2 H* Cancelled 25.5 (21.0-31.0) Seconds PTT Ratio 2.4 Cancelled 0.9 Sodium (136-145) mmol/L Potassium (3.5-5.1) mmol/L Chloride (98-107) mmol/L Carbon Dioxide (21-32) mmol/L Anion Gap (3-11) BUN (7-18) mg/dl Creatinine (0.6-1.2) mg/dl Est Cr Clr Drug Dosing ml/min Est GFR ( Amer) Est GFR (Non-Af Amer) BUN/Creatinine Ratio (10-20) Glucose (70-99) mg/dl Calcium (8.5-10.1) mg/dl 04/27/19 Range/Units 15:16 WBC 13.05 H (4.8-10.8) K/uL RBC 4.12 L (4.2-5.4) M/uL Hgb 11.9 L (12.0-16.0) g/dL Hct 37.2 (37-47) % MCV 90.3 (80-100) fL MCH 28.9 (25-34) pg MCHC 32.0 (32-36) g/dL RDW Std Deviation 48.4 H (36.4-46.3) fL RDW Coeff of Jer 14.7 H (11.5-14.5) % Plt Count 172 (130-400) K/uL MPV 11.0 H (7.4-10.4) fL Immature Gran % (Auto) 0.7 % Neut % (Auto) 81.9 % Lymph % (Auto) 8.7 % [place] % (Auto) 8.4 % Eos % (Auto) 0.2 % Baso % (Auto) 0.1 % Immature Gran # (Auto) 0.09 H (0.00-0.02) K/uL Neut # (Auto) 10.69 H (1.4-6.5) K/uL Lymph # (Auto) 1.14 L (1.2-3.4) K/uL [place] # (Auto) 1.09 H (0.11-0.59) K/uL Eos # (Auto) 0.03 (0-0.5) K/uL Baso # (Auto) 0.01 (0-0.2) K/uL PT (9.0-12.0) Seconds INR (0.9-1.1) APTT (21.0-31.0) Seconds PTT Ratio Sodium (136-145) mmol/L Potassium (3.5-5.1) mmol/L Chloride (98-107) mmol/L Carbon Dioxide (21-32) mmol/L Anion Gap (3-11) BUN (7-18) mg/dl Creatinine (0.6-1.2) mg/dl Est Cr Clr Drug Dosing ml/min Est GFR ( Amer) Est GFR (Non-Af Amer) BUN/Creatinine Ratio (10-20) Glucose (70-99) mg/dl Calcium (8.5-10.1) mg/dl
[2019-04-28 16:11] LABS: Partial Thromboplastin Ratio 2.3
[2019-04-28 16:39] LABS: Partial Thromboplastin Time 61.5 Seconds (21.0-31.0)
[2019-04-28] MEDS ORDERED: ONDANSETRON INJ 2 MG/ML 2 ML VIAL IV ONE (17:47)
[2019-04-28] MEDS ORDERED: BISACODYL 10 MG SUPP PR STA (18:33)
--- NOTE | 2019-04-28 21:54 | Hospitalist Progress Note ---
Date of Service April 28, 2019 Assessment & Plan (1) DVT (deep venous thrombosis): bilateral DVT in superficial femoral, popliteal veins she does not get much activity according to her son will treat with Lovenox 1mg/kg q12 for now will change to Heparin drip starting this evening because if she would need surgery would want to stop quickly unsure she would be a good fdc candidate for anticoagulation she does not even take aspirin due to h/o falls and intracranial bleed from a fall Vascular agrees with IVC filter. Will need to get consent from son as he is POA. CTA chest on admission negative for PE (2) Ileus: abdomen more distended, hypoactive bowel sounds, high pitched no BM, no flatus KUB shows marked dilation of bowels NGT placed, in good position on repeat KUB and CXR NGT placed because patient is high aspiration risk, if she would vomit could be catastrophic consult general surgery, CURRENTLY ON NG Tube suction. Will monitor (3) Lower abdominal pain: pain was all due to distension and ileus doubt proctitis? will continue Flagyl IV for now no relief with NGT as it is not putting out much, will monitor (4) Diarrhea: report of diarrhea prior to admission, h/o C diff no diarrhea or flatus since admission C diff order cancelled due to lack of BM (5) VELMA (acute kidney injury): Likely ATN secondary to dehydration plus telmisartan plus Lasix Hold both meds since admission continue NSS + 40mEq of K at 80cc/hr Cr improved to 1. (6) Hypokalemia: will continue to replace. (7) Dehydration: As above responding well to IV fluids continue fluids since she is NPO (8) UTI (urinary tract infection): Present on admission Ordered urine culture/blood culture Ceftriaxone empirically 3 organisms on urine culture no growth on blood cultures continue Ceftriaxone for 7 days total, stop on 05/02 (9) Generalized weakness: Secondary to all of the above, will order physical therapy occupational therapy and also speech for swallow evaluation (10) Parkinsonism: unfortunately we will need to hold Sinemet with ileus (11) Dysphagia: did not do well with speech therapy, recommended nectar thick liquids was not tolerating them either RN could not get medications down this morning for now she is NPO will need to re-address once ileus resolved Subjective 84 yo female reports no significant change from yesterday. Her family is at bedside and state that her abdomen is smaller than yesterday. The family though states that it continues to be firm. Review of Systems Review of Systems: All systems reviewed & are unremarkable except as noted in HPI & below Physical Exam Physical Exam: Constitutional: WD/WN, vitals as above Eyes: PERRL, conjunctivae normal, anicteric sclerae ENMT: external ear and nose normal, oropharynx normal Neck: trachea midline, no thyromegaly Respiratory: normal respiratory effort, lungs clear to auscultation Cardiovascular: RRR, no murmur, no edema Gastrointestinal (Abdomen): Inspection/Auscultation: + abdomen distended (tense), + high-pitched sounds and + hypoactive bowel sounds Percussion/Palpation: + abdomen tender, + tympanic to percussion and + abdomen firm; no guarding and abdomen not rigid Musculoskeletal: no cyanosis or clubbing, extremities motor strength 5/5 Skin: no rashes, warm and dry Neurologic: patellar DTR's 2+ bilat, sensation intact and PERRL, EOMI, accommodation nl, no face palsy, no dysarthria Psychiatric: Orientation: alert, oriented to person and cooperative; + not oriented to place and + not oriented to time Lymphatic: no cervical or axillary lymphadenopathy Results & Data Vital Signs (Past 12 Hours) Vital Signs Temp Pulse Resp BP Pulse Ox 04/28/19 15:32 36.6 C 107 H 18 147/87 H 93 PG Care Time/CCT Total # of Minutes Spent Total Time Spent with Patient: Total time spent is greater than 50% in coordination of care (as documented) at patient's floor/unit and/or counseling patient: (1) Diarrhea Diarrhea type: unspecified type Qualified Code(s): R19.7 - Diarrhea, unspecified (2) Parkinsonism Parkinsonism type: unspecified Qualified Code(s): G20 - Parkinson's disease
[2019-04-28] MEDS: POTASSIUM CHLORIDE / WTR 10 MEQ/100 ML PLCT IV SCH (23:29)
[2019-04-29] MEDS: POTASSIUM CHLORIDE / WTR 10 MEQ/100 ML PLCT IV SCH ×5 (00:29→15:14)
[2019-04-29] MEDS: POTASSIUM CHLORIDE 40 MEQ in SODIUM CHLORIDE 0.9% 1000ML 1,000 ML IV SCH ×2 (03:54→20:02)
[2019-04-29] MEDS: metroNIDAZOLE 500 MG/100 ML BAG IV SCH ×3 (04:57→20:19)
[2019-04-29 06:50] LABS: Hematocrit (blood only) 35.5 % (37-47); Hemoglobin 11.6 g/dL (12.0-16.0); Mean Corpuscular Hemoglobin 29.1 pg (25-34); Mean Corpuscular Hgb Conc 32.7 g/dL (32-36); Mean Corpuscular Volume 89.2 fL (80-100); Mean Platelet Volume 11.2 fL (7.4-10.4); Nucleated RBC # (auto) 0.09 K/uL (0-0); Nucleated RBC % (auto) 0.4 %; Platelet Count 232 K/uL (130-400); RDW Standard Deviation 48.6 fL (36.4-46.3); Red Blood Count 3.98 M/uL (4.2-5.4); White Blood Count 24.02 K/uL (4.8-10.8)
--- NOTE | 2019-04-29 07:06 | XRay Report ---
KUB HISTORY: Follow up study in a patient with ileus ileus COMPARISON: CT abdomen and pelvis of same day. FINDINGS: Enteric tube distal tip projects superiorly within the region of the proximal gastric body. Persistent air-filled dilated loops of large bowel measuring up to 11.4 cm. There is no organomegaly . No renal calculi. No ureteral calculi. No pneumoperitoneum or pneumatosis. No fracture. IMPRESSION: 1. Distal tip of enteric tube projects superiorly within the expected location of the proximal gastri c body. 2. Persistent colonic dilation suggestive of ongoing ileus. Electronically signed by: J Carlos Rosa M.D. 04/29/2019 7:05 AM
[2019-04-29 07:13] LABS: Partial Thromboplastin Ratio 2.6
--- NOTE | 2019-04-29 07:18 | CT Scan Report ---
CT SCAN OF THE ABDOMEN AND PELVIS WITHOUT IV CONTRAST CLINICAL HISTORY: Small bowel obstruction. COMPARISON STUDY: Abdominal CT dated 04/25/2019. TECHNIQUE: CT scan of the abdomen and pelvis is performed from the lung bases to the proximal femora. Images are reviewed in the axial, sagittal, and coronal planes. IV contrast was not administered for this examination as per the referring clinician. Note that the examination was performed in suboptim al fashion without IV contrast. Oral contrast was utilized. The examination is degraded by streak art ifact from the arms which could not be elevated above the abdomen as well as motion. A dose lowering technique was utilized adhering to the principles of ALARA. CT DOSE: 1330.13 mGy.cm FINDINGS: Lung bases: The heart is normal in size and without pericardial effusion. The coronary arteries are d ensely calcified. There are small pleural effusions with bibasilar atelectasis. A calcified granuloma is noted in the right lower lobe. No airspace consolidation is seen typical for pneumonia. Liver: The unenhanced liver is normal in size, contour, and attenuation. There is mild central intrah epatic biliary ductal dilatation. Gallbladder: Surgically absent noting clips in the gallbladder fossa. Spleen: Normal in size and attenuation. Pancreas: Atrophic and grossly unremarkable. Adrenal glands: A 2 cm right adrenal adenoma is unchanged. The left adrenal gland is normal in appear ance. Kidneys: The unenhanced kidneys are atrophic and without hydronephrosis. There are no renal calculi i dentified. There is no evidence of contour deforming renal mass lesion. Abdominal vasculature: The abdominal aorta is normal in course and caliber noting moderate atheroscle rotic calcification. Stomach and bowel: There is a moderate hiatal hernia. Enteric contrast is noted within the hiatal her manish as well as the distal esophagus. The stomach and duodenum otherwise normal in configuration. An e nteric tube terminates in the proximal stomach. The rectum is distended and filled with liquid stool. There is also marked distention of the colon with gas and stool. The cecum measures up to 9 cm in di ameter. There is no bowel obstruction. The small bowel loops are normal in caliber, and enteric contr ast reaches the cecum. The appendix is normal as visualized. Peritoneum: There is no intraperitoneal free air or abdominal ascites. Lymphadenopathy: None. Pelvic viscera: The bladder is decompressed around a Hughes catheter and cannot be assessed. The uteru s and adnexa are normal as visualized. Skeletal structures: The skeletal structures are osteopenic. There is a moderate compression deformit y of T12. A mild superior endplate compression deformity is noted in L3. No lytic or blastic lesions are seen. Soft tissues: There is mild body wall edema. IMPRESSION: 1. Suboptimal examination without IV contrast. The examination is also degraded by streak and motion artifact 2. There is no bowel obstruction. Enteric contrast reaches the colon. 3. The colon is markedly distended with gas and liquid stool, including the rectum. There is no signi ficant colonic wall thickening or surrounding inflammation. Correlate clinically for evidence of a di arrheal illness versus colonic ileus. The appearance is similar to the 04/25/2019 examination. 4. No intraperitoneal free air is identified and there is no abdominal ascites. 5. Small pleural effusions are again noted and minimally increased from previous. 6. Large hiatal hernia. 7. Additional findings as above. Electronically signed by: Jackson Tidwell M.D. 04/29/2019 7:17 AM
[2019-04-29 07:20] LABS: BUN Creatinine Ratio 22.9 (10-20); Calcium 9.7 mg/dl (8.5-10.1); Creatinine Clr Calc Pharmacy 23.2 ml/min; Est GFR (African American) 26.4; Est GFR (Non-African American) 22.8; Potassium 3.2 mmol/L (3.5-5.1)
[2019-04-29] MEDS: HEPARIN SODIUM/DEXTROSE 25,000 UNITS/500 ML BAG IV SCH ×3 (07:49→15:23)
[2019-04-29] MEDS: cefTRIAXone SODIUM 1,000 MG/50 ML BAG IV SCH (07:50)
[2019-04-29] MEDS: FLUTICASONE PROPIONATE NA SPR 16 GM BTL SCH (07:51)
--- NOTE | 2019-04-29 09:14 | Gastrointestinal Consultation ---
Date of Consultation April 29, 2019 Assessment & Plan (1) Ileus: 84 year old female w/ worsening colon dilation, NG to place x 48 hours for small bowel/large bowel dilation. She is afebrile but leukocytosis noted - on flagyl given history of c.diff but does not appear c.diff tested NPO NG to LIS Will discuss decompression w/ attending Thank you for allowing us to participate in the care of this patient. Please call with any acute changes, questions or concerns. Please see addendum below with additional recommendation from my supervising physician. Present on Admission?: Yes Supervising Physician Co-Signing Physician Notes I have seen and examined the patient with NOREEN Porter whose note reflects our findings and plan. Abd distended and mildly tender. NGT in place. Labs and imaging reviewed. Colon dilated to 11cm. Planning for urgent colonic decompression with placement of decompression tube. consent obtained from POA via phone. History of Present Illness Reason for Consultation: ileus Requesting Physician: Wenceslao Attending Physician: Jay Dos Santos History of Present Illness 84 year old female w/ history of PD, T2DM, CKD, dyslipidemia, HTN, prior c.diff who presents from the group home for weakness, nausea/vomiting, diarrhea - surgery team following for ileus w/ NG tube placement to LIS. GI asked to evaluate this AM for large bowel dilation. Pt was seen and evaluated, chart reviewed. [facility]. Pt cannot provide much history. No family present. She notes generalized abd pain. No vomiting w/ NG in place. Output is brown/blood tinged. No black output. Unsure if passing gas but there is small BM documented this AM. KUB this AM w/ worsening colonic dilation to 11.5 CM from previously measured 9 cm Unclear to me if c.diff was tested appears she is on Flagyl given history of cdiff Allergies Allergy/AdvReac Type Severity Reaction Status Date / Time Penicillins Allergy Intermediate Unknown Verified 04/25/19 14:33 atenolol Allergy Mild UNKNOWN Verified 04/25/19 14:33 chlorthalidone Allergy Mild UNKNOWN Verified 04/25/19 14:33 atorvastatin AdvReac Mild GI SYMPTOMS Verified 04/25/19 14:33 hydrochlorothiazide AdvReac Mild GI SYMPTOMS Verified 04/25/19 14:33 naproxen AdvReac Mild GI SYMPTOMS Verified 04/25/19 14:33 amoxicillin AdvReac Unknown diarrhea Verified 04/25/19 14:33 Cipro AdvReac Unknown nausea/vomi Verified 12/29/17 07:49 ting ciprofloxacin AdvReac Unknown nausea/vomi Verified 04/25/19 14:33 ting hydrocodone AdvReac Unknown n/v loss Verified 04/25/19 14:33 of appetite Home Medications Home Medications Medication Instructions Recorded Confirmed Type acetaminophen [Tylenol Extra 1,000 mg PO TID PRN 06/30/18 04/25/19 History Strength] atorvastatin 10 mg PO QAM 06/30/18 04/25/19 History cholecalciferol (vitamin D3) 3,000 unit PO QAM 06/30/18 04/25/19 History [Vitamin D3] mometasone 2 spray INTRANASAL QAM 06/30/18 04/25/19 History cranberry 500 mg PO BID 09/02/18 04/25/19 History metoprolol succinate [Toprol XL] 25 mg PO BID 10/03/18 04/25/19 History cetirizine 5 mg PO DAILY PRN 11/12/18 04/25/19 History folic acid 1 mg PO QAM 11/12/18 04/25/19 History miscellaneous medical supply #1 ea 11/22/18 12/31/18 Rx carbidopa 25 mg-levodopa 100 mg 1 tab PO QID 90 Days #360 tab 01/15/19 04/25/19 Rx tablet mirtazapine 15 mg tablet 15 mg PO HS #30 tab 02/11/19 04/25/19 Rx potassium chloride 20 mEq 20 meq PO BID #180 tab 02/14/19 04/25/19 Rx tablet,extended release tramadol 50 mg tablet 50 mg PO HS #30 tab 03/13/19 04/25/19 Rx calcitonin (salmon) 200 units NA QAM 04/25/19 04/25/19 History cyanocobalamin (vitamin B-12) 500 mcg PO QAM 04/25/19 04/25/19 History [Vitamin B-12] furosemide [Lasix] 20 mg PO QAM 04/25/19 04/25/19 History ysyjeqwg-xaa-quvd-folic-vit K1 1 tab PO QAM 04/25/19 04/25/19 History [Centrum Chewables] pantoprazole 40 mg PO QAM 04/25/19 04/25/19 History polyethylene glycol 3350 [Miralax] 17 g PO QAM 04/25/19 04/25/19 History sennosides-docusate sodium 2 tab PO QAM 04/25/19 04/25/19 History [Senokot-S] telmisartan 80 mg PO DAILY@1200 04/25/19 04/25/19 History Patient History Medical History Abnormality of lung on chest x-ray Allergic rhinitis Aortic atherosclerosis Bilateral lower extremity edema Cancer SKIN CANCER, REMOVED. Chronic back pain Chronic kidney disease Chronic osteoarthritis Confusion AT TIMES. POSSIBLE EARLY STAGES OF DEMENTIA Coronary artery calcification Cyst of ovary Daytime somnolence Diabetes mellitus Dyslipidemia Esophageal dysmotility Fibroids Fuchs' corneal dystrophy Gait apraxia GERD (gastroesophageal reflux disease) Hemorrhoid (Resolved) Hepatic steatosis Hiatal hernia History of dry mouth History of esophageal dilatation Last one 10/2017 Propofol 120mg, Lidocaine 40mg IV HTN (hypertension) (Chronic) Hydronephrosis, right Hypercholesterolemia Hyperlipidemia Hyponatremia Idiopathic polyneuropathy Limited mobility Low back pain Mild cognitive impairment Muscular weakness Osteoarthritis Osteopenia Parkinson disease Recurrent falls Schatzki's ring Tendonitis, calcific, shoulder Urinary frequency Weight loss Surgical History History of arthroscopy KNEE (UNSURE OF SIDE) History of cholecystectomy History of colonoscopy History of esophagogastroduodenoscopy (EGD) Family History Unknown Stroke syndrome Mother Cardiac disorder Daughter Malignant neoplasm of female breast Other Family history non-contributory Social History Preferred Language: Bulgarian Communication Ability: Effective Elevator Installer Required: No Beliefs That Will Affect Care: None marital status: Life Partner Current Living Situation: Personal Care Facility Current Living Situation Comment: Lives with friend current occupational status: retired Feels Safe at Home: Yes Smoking Status: Never smoker Second Hand Exposure: No ; Hx Alcohol Use: Yes Hx Substance Use: No Review of Systems Review of Systems: Other (Unable to obtain as pt is uncomfortable w/ NG tube and is a poor historian) Physical Exam Constitutional: + acute distress (pt appears uncomfortable) and + ill appearing Neck: trachea midline Respiratory: normal respiratory effort Cardiovascular: Rate/Rhythm: regular rate and regular rhythm Gastrointestinal (Abdomen): Inspection/Auscultation: + abdomen distended; + abnormal bowel sounds Percussion/Palpation: + abdomen tender and + abdomen firm (distended, not soft); no guarding, abdomen not rigid and + abdomen not soft Results & Data Vital Signs (Past 12 Hours) Vital Signs Temp Pulse Resp BP Pulse Ox 04/29/19 07:27 36.8 C 124 H 24 134/78 91 04/29/19 00:00 36.6 C 107 H 18 138/86 91 Laboratory Results 04/29/19 04/29/19 04/29/19 Range/Units 08:49 06:31 06:31 WBC (4.8-10.8) K/uL RBC (4.2-5.4) M/uL Hgb (12.0-16.0) g/dL Hct (37-47) % MCV (80-100) fL MCH (25-34) pg MCHC (32-36) g/dL RDW Std Deviation (36.4-46.3) fL RDW Coeff of Jer (11.5-14.5) % Plt Count (130-400) K/uL MPV (7.4-10.4) fL Absolute Nucleated RBC (0-0) K/uL Nucleated RBC % (auto) % APTT 71.0 H* (21.0-31.0) Seconds PTT Ratio 2.6 Sodium 145 (136-145) mmol/L Potassium 3.2 L (3.5-5.1) mmol/L Chloride 117 H (98-107) mmol/L Carbon Dioxide 16 L (21-32) mmol/L Anion Gap 11.0 (3-11) BUN 46 H (7-18) mg/dl Creatinine 1.99 H D (0.6-1.2) mg/dl Est Cr Clr Drug Dosing 23.2 ml/min Est GFR ( Amer) 26.4 Est GFR (Non-Af Amer) 22.8 BUN/Creatinine Ratio 22.9 H (10-20) Glucose 155 H (70-99) mg/dl Lactate 1.2 (0.4-2.0) mmol/L Calcium 9.7 (8.5-10.1) mg/dl 04/29/19 04/28/19 Range/Units 06:31 15:37 WBC 24.02 H (4.8-10.8) K/uL RBC 3.98 L (4.2-5.4) M/uL Hgb 11.6 L (12.0-16.0) g/dL Hct 35.5 L (37-47) % MCV 89.2 (80-100) fL MCH 29.1 (25-34) pg MCHC 32.7 (32-36) g/dL RDW Std Deviation 48.6 H (36.4-46.3) fL RDW Coeff of Jer 15.0 H (11.5-14.5) % Plt Count 232 (130-400) K/uL MPV 11.2 H (7.4-10.4) fL Absolute Nucleated RBC 0.09 H (0-0) K/uL Nucleated RBC % (auto) 0.4 % APTT 61.5 H* (21.0-31.0) Seconds PTT Ratio 2.3 Sodium (136-145) mmol/L Potassium (3.5-5.1) mmol/L Chloride (98-107) mmol/L Carbon Dioxide (21-32) mmol/L Anion Gap (3-11) BUN (7-18) mg/dl Creatinine (0.6-1.2) mg/dl Est Cr Clr Drug Dosing ml/min Est GFR ( Amer) Est GFR (Non-Af Amer) BUN/Creatinine Ratio (10-20) Glucose (70-99) mg/dl Lactate (0.4-2.0) mmol/L Calcium (8.5-10.1) mg/dl
--- NOTE | 2019-04-29 09:50 | Surgery Progress Note ---
Date of Service April 29, 2019 Assessment & Plan (1) Ileus: CT scan of abdomen and pelvis with oral contrast last evening showing no obstruction however colonic distention consistent with ileus. KUB this morning showing dilated colon now at 11.4 cm (9 cm previously) Abdomen is rigid and severely distended however not peritonitic and patient denies abdominal pain just feels very bloated and hard stomach. NGT output dark brown leukocytosis of 24k (16k yesterday) Plan: GI consulted, likely needs decompression given amount of colonic distention. Dr. Billy recommended transfer to tertiary center for further management and care given colonic distention. Dr. Dos Santos in contact with [facility] for discussion of possible transfer. Stat lactic acid ordered and pending at time of my examination of patient. Patient does not have peritonitic signs but she likely needs decompressed. Discussed with Dr. Dos Santos. will await results of lactic acid. Discussed with Dr. Billy who agrees with above. Subjective ROS limited as patient very hard to understand given speech and dry mouth asked multiple times and she denies abdominal pain but feels very bloated and stomach feels hard not passing any gas , nursing staff said she had very minimal liquid bm last night but mostly water (stool was not sent for c.diff testing) no n/v no chest pain, palpitations Physical Exam Constitutional: WD/WN, vitals as above no acute distress Gastrointestinal (Abdomen): Inspection/Auscultation: + abdomen distended (severely distended); + abnormal bowel sounds Percussion/Palpation: + abdomen rigid; abdomen nontender, no guarding and + abdomen not soft Skin: no rashes, warm and dry Psychiatric: Orientation: alert Results & Data Vital Signs (Past 12 Hours) Vital Signs Temp Pulse Resp BP Pulse Ox 04/29/19 07:27 36.8 C 124 H 24 134/78 91 04/29/19 00:00 36.6 C 107 H 18 138/86 91 Laboratory Results 04/29/19 04/29/19 04/29/19 Range/Units 08:49 06:31 06:31 WBC (4.8-10.8) K/uL RBC (4.2-5.4) M/uL Hgb (12.0-16.0) g/dL Hct (37-47) % MCV (80-100) fL MCH (25-34) pg MCHC (32-36) g/dL RDW Std Deviation (36.4-46.3) fL RDW Coeff of Jer (11.5-14.5) % Plt Count (130-400) K/uL MPV (7.4-10.4) fL Absolute Nucleated RBC (0-0) K/uL Nucleated RBC % (auto) % APTT 71.0 H* (21.0-31.0) Seconds PTT Ratio 2.6 Sodium 145 (136-145) mmol/L Potassium 3.2 L (3.5-5.1) mmol/L Chloride 117 H (98-107) mmol/L Carbon Dioxide 16 L (21-32) mmol/L Anion Gap 11.0 (3-11) BUN 46 H (7-18) mg/dl Creatinine 1.99 H D (0.6-1.2) mg/dl Est Cr Clr Drug Dosing 23.2 ml/min Est GFR ( Amer) 26.4 Est GFR (Non-Af Amer) 22.8 BUN/Creatinine Ratio 22.9 H (10-20) Glucose 155 H (70-99) mg/dl Lactate 1.2 (0.4-2.0) mmol/L Calcium 9.7 (8.5-10.1) mg/dl 04/29/19 04/28/19 Range/Units 06:31 15:37 WBC 24.02 H (4.8-10.8) K/uL RBC 3.98 L (4.2-5.4) M/uL Hgb 11.6 L (12.0-16.0) g/dL Hct 35.5 L (37-47) % MCV 89.2 (80-100) fL MCH 29.1 (25-34) pg MCHC 32.7 (32-36) g/dL RDW Std Deviation 48.6 H (36.4-46.3) fL RDW Coeff of Jer 15.0 H (11.5-14.5) % Plt Count 232 (130-400) K/uL MPV 11.2 H (7.4-10.4) fL Absolute Nucleated RBC 0.09 H (0-0) K/uL Nucleated RBC % (auto) 0.4 % APTT 61.5 H* (21.0-31.0) Seconds PTT Ratio 2.3 Sodium (136-145) mmol/L Potassium (3.5-5.1) mmol/L Chloride (98-107) mmol/L Carbon Dioxide (21-32) mmol/L Anion Gap (3-11) BUN (7-18) mg/dl Creatinine (0.6-1.2) mg/dl Est Cr Clr Drug Dosing ml/min Est GFR ( Amer) Est GFR (Non-Af Amer) BUN/Creatinine Ratio (10-20) Glucose (70-99) mg/dl Lactate (0.4-2.0) mmol/L Calcium (8.5-10.1) mg/dl Diagnostic Findings CT SCAN OF THE ABDOMEN AND PELVIS WITHOUT IV CONTRAST 04/28/19 CLINICAL HISTORY: Small bowel obstruction. COMPARISON STUDY: Abdominal CT dated 04/25/2019. TECHNIQUE: CT scan of the abdomen and pelvis is performed from the lung bases to the proximal femora. Images are reviewed in the axial, sagittal, and coronal planes. IV contrast was not administered for this examination as per the referring clinician. Note that the examination was performed in suboptimal fashion without IV contrast. Oral contrast was utilized. The examination is degraded by streak artifact from the arms which could not be elevated above the abdomen as well as motion. A dose lowering technique was utilized adhering to the principles of ALARA. CT DOSE: 1330.13 mGy.cm FINDINGS: Lung bases: The heart is normal in size and without pericardial effusion. The coronary arteries are densely calcified. There are small pleural effusions with bibasilar atelectasis. A calcified granuloma is noted in the right lower lobe. No airspace consolidation is seen typical for pneumonia. Liver: The unenhanced liver is normal in size, contour, and attenuation. There is mild central intrahepatic biliary ductal dilatation. Gallbladder: Surgically absent noting clips in the gallbladder fossa. Spleen: Normal in size and attenuation. Pancreas: Atrophic and grossly unremarkable. Adrenal glands: A 2 cm right adrenal adenoma is unchanged. The left adrenal gland is normal in appearance. Kidneys: The unenhanced kidneys are atrophic and without hydronephrosis. There are no renal calculi identified. There is no evidence of contour deforming renal mass lesion. Abdominal vasculature: The abdominal aorta is normal in course and caliber noting moderate atherosclerotic calcification. Stomach and bowel: There is a moderate hiatal hernia. Enteric contrast is noted within the hiatal hernia as well as the distal esophagus. The stomach and duodenum otherwise normal in configuration. An enteric tube terminates in the proximal stomach. The rectum is distended and filled with liquid stool. There is also marked distention of the colon with gas and stool. The cecum measures up to 9 cm in diameter. There is no bowel obstruction. The small bowel loops are normal in caliber, and enteric contrast reaches the cecum. The appendix is normal as visualized. Peritoneum: There is no intraperitoneal free air or abdominal ascites. Lymphadenopathy: None. Pelvic viscera: The bladder is decompressed around a Hughes catheter and cannot be assessed. The uterus and adnexa are normal as visualized. Skeletal structures: The skeletal structures are osteopenic. There is a moderate compression deformity of T12. A mild superior endplate compression deformity is noted in L3. No lytic or blastic lesions are seen. Soft tissues: There is mild body wall edema. IMPRESSION: 1. Suboptimal examination without IV contrast. The examination is also degraded by streak and motion artifact 2. There is no bowel obstruction. Enteric contrast reaches the colon. 3. The colon is markedly distended with gas and liquid stool, including the rectum. There is no significant colonic wall thickening or surrounding inflammation. Correlate clinically for evidence of a diarrheal illness versus colonic ileus. The appearance is similar to the 04/25/2019 examination. 4. No intraperitoneal free air is identified and there is no abdominal ascites. 5. Small pleural effusions are again noted and minimally increased from previous. 6. Large hiatal hernia. KUB 04/29/19 HISTORY: Follow up study in a patient with ileus ileus COMPARISON: CT abdomen and pelvis of same day. FINDINGS: Enteric tube distal tip projects superiorly within the region of the proximal gastric body. Persistent air-filled dilated loops of large bowel measuring up to 11.4 cm. There is no organomegaly. No renal calculi. No ureteral calculi. No pneumoperitoneum or pneumatosis. No fracture. IMPRESSION: 1. Distal tip of enteric tube projects superiorly within the expected location o f the proximal gastric body. 2. Persistent colonic dilation suggestive of ongoing ileus.
[2019-04-29 11:16] LABS: Base Excess VBG -7.7 mEq/L; Oxygen Saturation VBG 82.7 %; pH VBG 7.32 (7.36-7.41)
--- NOTE | 2019-04-29 11:39 | Communication Note ---
Date of Service: April 29, [address] Azul, will postpone IVC filter insertion until closer to discharge or if long interruption of AC needed for surgery, due to increased leukocytosis noted today. Please call if needed otherwise. Will continue to follow.
[2019-04-29] MEDS ORDERED: MINERAL OIL 30 ML UDC ONE (12:44)
--- NOTE | 2019-04-29 12:58 | Anesthesiology Consultation ---
Date of Service April 29, 2019 Assessment & Plan Chart Review Chart Review: Acceptable Risk for Surgery and Patient NOT seen in Pre Admission Testing Consults Requested none History Surgery Operation Date: 04/29/19 15:15 Proposed Procedures p Colonoscopy with Decompression - Consuelo Suvock Operation Date: 04/30/19 13:00 Proposed Procedures p Inferior Vena Cava Filter Placement - Margarito Azul MD Height/Weight Height: 5 ft 6 in Weight: 79.4 kg Allergies Allergy/AdvReac Type Severity Reaction Status Date / Time Penicillins Allergy Intermediate Unknown Verified 04/25/19 14:33 atenolol Allergy Mild UNKNOWN Verified 04/25/19 14:33 chlorthalidone Allergy Mild UNKNOWN Verified 04/25/19 14:33 atorvastatin AdvReac Mild GI SYMPTOMS Verified 04/25/19 14:33 hydrochlorothiazide AdvReac Mild GI SYMPTOMS Verified 04/25/19 14:33 naproxen AdvReac Mild GI SYMPTOMS Verified 04/25/19 14:33 amoxicillin AdvReac Unknown diarrhea Verified 04/25/19 14:33 Cipro AdvReac Unknown nausea/vomi Verified 12/29/17 07:49 ting ciprofloxacin AdvReac Unknown nausea/vomi Verified 04/25/19 14:33 ting hydrocodone AdvReac Unknown n/v loss Verified 04/25/19 14:33 of appetite Medications Home Medications Medication Instructions Recorded Confirmed Last Taken acetaminophen [Tylenol Extra 1,000 mg PO TID PRN 06/30/18 04/25/19 09/02/18 21:00 Strength] atorvastatin 10 mg PO QAM 06/30/18 04/25/19 04/25/19 08:00 cholecalciferol (vitamin D3) 3,000 unit PO QAM 06/30/18 04/25/19 04/25/19 08:00 [Vitamin D3] mometasone 2 spray INTRANASAL QAM 06/30/18 04/25/19 04/25/19 09:00 cranberry 500 mg PO BID 09/02/18 04/25/19 04/25/19 08:00 metoprolol succinate [Toprol XL] 25 mg PO BID 10/03/18 04/25/19 04/25/19 08:00 cetirizine 5 mg PO DAILY PRN 11/12/18 04/25/19 Unknown folic acid 1 mg PO QAM 11/12/18 04/25/1904/25/19 08:00 miscellaneous medical supply #1 ea 11/22/18 12/31/18 Unknown carbidopa 25 mg-levodopa 100 mg 1 tab PO QID 90 Days #360 tab 01/15/19 04/25/19 04/25/19 08:00 tablet mirtazapine 15 mg tablet 15 mg PO HS #30 tab 02/11/19 04/25/19 04/24/19 20:00 potassium chloride 20 mEq 20 meq PO BID #180 tab 02/14/19 04/25/19 04/25/19 08:00 tablet,extended release tramadol 50 mg tablet 50 mg PO HS #30 tab 03/13/19 04/25/19 04/24/19 20:00 calcitonin (salmon) 200 units NA QAM 04/25/19 04/25/19 04/25/19 09:00 cyanocobalamin (vitamin B-12) 500 mcg PO QAM 04/25/19 04/25/19 04/25/19 08:00 [Vitamin B-12] furosemide [Lasix] 20 mg PO QAM 04/25/19 04/25/19 04/25/19 08:00 pjqhpoax-uqc-dmlz-folic-vit K1 1 tab PO QAM 04/25/19 04/25/19 04/25/19 08:00 [Centrum Chewables] pantoprazole 40 mg PO QAM 04/25/19 04/25/19 04/25/19 09:00 polyethylene glycol 3350 [Miralax] 17 g PO QAM 04/25/19 04/25/19 04/25/19 08:00 sennosides-docusate sodium 2 tab PO QAM 04/25/19 04/25/19 04/25/19 08:00 [Senokot-S] telmisartan 80 mg PO DAILY@1200 04/25/19 04/25/19 04/24/19 Active Medications Generic Name Dose Route Start Last Admin Trade Name Freq PRN Reason Stop Dose Admin Atorvastatin Calcium 10 mg 04/26/19 09:00 04/27/19 09:15 Lipitor PO 05/26/19 08:59 10 mg QAM ARELIS Administration Carbidopa/Levodopa 1 tab 04/25/19 21:00 04/27/19 13:04 Sinemet 25/100 Mg PO 05/25/19 20:59 Not Given QID ARELIS Cyanocobalamin 500 mcg 04/26/19 09:00 04/27/19 09:16 Vitamin B-12 PO 05/26/19 08:59 500 mcg QAM ARELIS Administration Fluticasone Propionate 2 sprays 04/26/19 09:00 04/29/19 07:51 Flonase NA 05/26/19 08:59 2 sprays QAM ARELIS Administration Folic Acid 1 mg 04/26/19 09:00 04/27/19 09:16 Folvite PO 05/26/19 08:59 1 mg QAM ARELIS Administration Ceftriaxone Sodium 1,000 mg in 50 mls @ 100 mls/hr 04/25/19 20:30 04/29/19 09:01 Rocephin IV 04/30/19 20:29 Infused DAILY ARELIS Infusion Metronidazole 500 mg in 100 mls @ 100 mls/hr 04/25/19 21:00 04/29/19 06:10 Flagyl IV 05/05/19 20:59 Infused Q8H ARELIS Infusion Potassium Chloride 40 meq/ 1,020 mls @ 80 mls/hr 04/27/19 10:30 04/29/19 03:54 Sodium Chloride IV 05/27/19 10:14 80 mls/hr .[id number] ARELIS Administration Heparin Sodium/Dextrose 25,000 units in 500 mls @ 0 mls/hr 04/27/19 15:00 04/29/19 11:36 Heparin Sodium/Dextrose IV 05/27/19 14:59 0 units/hr .Q0M ARELIS 0 mls/hr Titration Protocol 0 UNITS/HR Metoprolol Succinate 25 mg 04/25/19 21:00 04/27/19 10:13 Toprol Xl PO 05/25/19 20:59 Not Given BID ARELIS Mirtazapine 15 mg 04/25/19 21:00 04/26/19 20:26 Remeron PO 05/25/19 20:59 15 mg HS ARELIS Administration Pantoprazole Sodium 40 mg 04/26/19 09:00 04/27/19 09:15 Protonix PO 05/26/19 08:59 40 mg QAM ARELIS Administration Polyethylene Glycol 17 gm 04/26/19 09:00 04/27/19 09:15 Miralax Powder Packet PO 05/26/19 08:59 17 gm QAM ARELIS Administration Senna/Docusate Sodium 2 tab 04/26/19 09:00 04/27/19 09:15 Senokot S PO 05/26/19 08:59 2 tab QAM ARELIS Administration NPO Date Last Intake of Fluids: 04/27/19 Date Last Intake of Solids: 04/27/19 Past Medical History Medical History Abnormality of lung on chest x-ray Allergic rhinitis Aortic atherosclerosis Bilateral lower extremity edema Cancer SKIN CANCER, REMOVED. Chronic back pain Chronic kidney disease Chronic osteoarthritis Confusion AT TIMES. POSSIBLE EARLY STAGES OF DEMENTIA Coronary artery calcification Cyst of ovary Daytime somnolence Diabetes mellitus Dyslipidemia Esophageal dysmotility Fibroids Fuchs' corneal dystrophy Gait apraxia GERD (gastroesophageal reflux disease) Hemorrhoid (Resolved) Hepatic steatosis Hiatal hernia History of dry mouth History of esophageal dilatation Last one 10/2017 Propofol 120mg, Lidocaine 40mg IV HTN (hypertension) (Chronic) Hydronephrosis, right Hypercholesterolemia Hyperlipidemia Hyponatremia Idiopathic polyneuropathy Limited mobility Low back pain Mild cognitive impairment Muscular weakness Osteoarthritis Osteopenia Parkinson disease Recurrent falls Schatzki's ring Tendonitis, calcific, shoulder Urinary frequency Weight loss Past Family History Family History Unknown Stroke syndrome Mother Cardiac disorder Daughter Malignant neoplasm of female breast Other Family history non-contributory Past Surgical History Surgical History History of arthroscopy KNEE (UNSURE OF SIDE) History of cholecystectomy History of colonoscopy History of esophagogastroduodenoscopy (EGD) Social History Smoking Status: Never smoker Hx Alcohol Use: Yes alcohol intake frequency: holidays/special occasions only Hx Substance Use: No substance use type: does not use Physical Exam Vital Signs Last Vital Signs Temp 36.8 C 04/29/19 12:38 Pulse 86 04/29/19 12:38 Resp 16 04/29/19 12:38 BP 130/75 04/29/19 12:38 Pulse Ox 92 04/29/19 12:38 Testing Laboratory Results 04/29/19 06:31 04/29/19 06:31 PT 12.5 Seconds (9.0-12.0) H 04/27/19 15:16 INR 1.2 (0.9-1.1) H 04/27/19 15:16 APTT 71.0 Seconds (21.0-31.0) H* 04/29/19 06:31 Urine Color Yellow 04/25/19 12:04 Urine Appearance Turbid (Clear) A 04/25/19 12:04 Urine pH 5.0 (4.5-7.5) 04/25/19 12:04 Ur Specific [place] 1.019 (1.000-1.030) 04/25/19 12:04 Urine Protein 1+ (Negative) H 04/25/19 12:04 Urine Glucose (UA) Negative (Negative) 04/25/19 12:04 Urine Ketones Negative (Negative) 04/25/19 12:04 Urine Nitrite Negative (Negative) 04/25/19 12:04 Ur Leukocyte Esterase 2+ (Negative) H 04/25/19 12:04 Urine WBC (Auto) 10-30 /hpf (0-5) H 04/25/19 12:04 Urine RBC (Auto) >30 /hpf (0-4) H 04/25/19 12:04 U Hyaline Cast (Auto) 10-30 /lpf (0-5) H 04/25/19 12:04 U Epithel Cells (Auto) >30 /lpf (0-5) H 04/25/19 12:04 Urine Bacteria (Auto) Negative (Negative) 04/25/19 12:04 04/25/19 20:55 Aerobic Blood Culture - Preliminary Blood No growth in Aerobic bottle after 48 hours. Anaerobic Blood Culture - Preliminary No growth in Anaerobic bottle after 48 hours. 04/25/19 21:01 Aerobic Blood Culture - Preliminary Blood No growth in Aerobic bottle after 48 hours. Anaerobic Blood Culture - Preliminary No growth in Anaerobic bottle after 48 hours. 04/25/19 12:04 Urine Culture - Final Urine,Clean Catch More than three types of organisms present, all high counts mixed probable skin libertad - No further identifications or sensitivities to follow.
[2019-04-29] MEDS ORDERED: ATROPINE SULFATE 0.1 MG/ML 10ML SYR IV PRN (13:04)
[2019-04-29] MEDS ORDERED: ePHEDrine sulfate 50 MG/ML AMP IV PRN (13:04)
[2019-04-29] MEDS ORDERED: ePHEDrine sulfate 50 MG/ML SYR ONE (13:57)
[2019-04-29] MEDS ORDERED: PROPOFOL IV EMULSION 10 MG/ML 20 ML VIAL IV ONE (13:57)
[2019-04-29] MEDS ORDERED: PHENYLEPHRINE 100MCG/ML 5ML SYR ONE (13:57)
--- NOTE | 2019-04-29 13:59 | GI REPORT ---
Patient Name: Lety Becerra Procedure Date: 04/29/2019 1:01 PM Date of : 1935 Admit Type: Inpatient Age: 84 Gender: Female Attending MD: Consuelo Mullen DO Procedure: Colonoscopy Providers: Consuelo Mullen DO Referring MD: Merle Dodge Indications: For therapy of Allie's syndrome Medicines: Propofol per Anesthesia Complications: No immediate complications. Estimated blood loss: None. Estimated Blood Loss: Estimated blood loss: none. Procedure: Pre-Anesthesia Assessment: - Prior to the procedure, a History and Physical was performed, and patient medications, allergies and sensitivities were reviewed. The patient's tolerance of previous anesthesia was reviewed. - The risks and benefits of the procedure and the sedation options and risks were discussed with the patient. All questions were answered and informed consent was obtained. - Patient identification and proposed procedure were verified prior to the procedure by the physician and the nurse. The procedure was verified in the pre-procedure area in the procedure room. - Mental Status Examination: alert and oriented. Airway Examination: normal oropharyngeal airway and neck mobility. Respiratory Examination: clear to auscultation. CV Examination: normal. Abdominal Examination: bowel sounds present, abdomen soft and non-tender, no masses or organomegaly noted. - ASA Grade Assessment: III - A patient with severe systemic disease. After I obtained informed consent, the scope was passed under direct vision. Throughout the procedure, the patient's blood pressure, pulse, and oxygen saturations were monitored continuously. The scope was introduced through the anus and advanced to the hepatic flexure for evaluation. This was the intended extent. The colonoscopy was performed without difficulty. The patient tolerated the procedure well. The quality of the bowel preparation was good. Findings: The perianal and digital rectal examinations were normal. Pertinent negatives include normal sphincter tone and no palpable rectal lesions. Stool was found in the entire colon. A colonic decompression tube was placed. Impression: - Stool in the entire examined colon. - No specimens collected. Recommendation: - KUB - Flush decompression tube every 8 hours - Return patient to hospital ruff for ongoing care. Cleopatra Sherwood DO 04/29/2019 1:58:57 PM This report has been signed electronically. Note Initiated On: 04/29/2019 1:01 PM Number of Addenda: 0 I attest to the content of the Intraoperative Record and orders documented therein, exceptions below {[id number]}
--- NOTE | 2019-04-29 14:01 | Anesthesiology Progress Note ---
Date of Service April 29, 2019 Anesthesia Post Procedure Vital Signs Vital Signs: Temp Pulse Resp BP Pulse Ox 04/29/19 12:38 36.8 C 86 16 130/75 92 04/29/19 10:42 36.4 C L 72 16 123/67 93 04/29/19 07:27 36.8 C 124 H 24 134/78 91 04/29/19 00:00 36.6 C 107 H 18 138/86 91 04/28/19 15:32 36.6 C 107 H 18 147/87 H 93 Transfer of Care Handoff Completed per policy Notes Mental Status: alert / awake / arousable Patient Amnestic to Procedure: Yes Nausea / Vomiting: adequately controlled Pain: adequately controlled Airway Patency, RR, SpO2: stable & adequate BP & HR: stable & adequate Hydration State: stable & adequate Anesthetic Complications: no major complications apparent and Pt Satisfied with anesthetic care
--- NOTE | 2019-04-29 14:47 | XRay Report ---
KUB HISTORY: Follow up study in a patient with ileus and recent colonoscopy s/p colonoscopy w/ decompres vikas COMPARISON: KUB 04/29/2019 at 6:53 AM FINDINGS: A rectal tube projects over the central pelvis. Enteric tube is unchanged, distal tip proje cted superiorly within the region of the gastric lumen. There is moderately decreased colonic distent ion. No definite pneumatosis or pneumoperitoneum. Cholecystectomy. Vascular calcifications of the pel vis. No definite urolith. Degenerative changes of the spine, pelvis and hips. No acute fracture. IMPRESSION: 1. Interval placement of a rectal catheter, coiled about the central pelvis. 2. Enteric tube distal tip projects superiorly within the region of the proximal gastric lumen. 3. Moderately decreased colonic distention. Electronically signed by: J Carlos Rosa M.D. 04/29/2019 2:46 PM
[2019-04-29] MEDS ORDERED: Heparin IV Standard *NO* Bolus IV SCH (14:50)
[2019-04-29] MEDS ORDERED: HEPARIN SODIUM/DEXTROSE 25,000 UNITS/500 ML BAG IV SCH (15:00)
[2019-04-29 22:38] LABS: Partial Thromboplastin Time 55.2 Seconds (21.0-31.0)
--- NOTE | 2019-04-29 22:59 | Hospitalist Progress Note ---
Date of Service April 29, 2019 Assessment & Plan (1) Ileus: Patient appears to be doing worse as her WBC is elevated, HR is elevated. Likely reactive to her colon becoming more distended. Concern over ischemia, ordered lactic acid which was normal. Had discussion with surgeon who wanted patient transferred, however had discussion with GI who recommended colonic decompression. As patient is on a downward spiral, would prefer she would get treatment as son as possible. [facility] GI service here states procedure can be done in the afternoon. Called [facility]jeev for transfer but transferring provider was in surgery. no BM, no flatus KUB shows marked dilation of bowels NGT placed, in good position on repeat KUB and CXR NGT placed because patient is high aspiration risk, if she would vomit could be catastrophic consult general surgery, CURRENTLY ON NG Tube suction. Will monitor (2) DVT (deep venous thrombosis): bilateral DVT in superficial femoral, popliteal veins she does not get much activity according to her son will treat with Lovenox 1mg/kg q12 for now will change to Heparin drip starting this evening because if she would need surgery would want to stop quickly unsure she would be a good [place] [facility] candidate for anticoagulation she does not even take aspirin due to h/o falls and intracranial bleed from a fall Vascular agrees with IVC filter. Will need to get consent from son as he is POA. CTA chest on admission negative for PE (3) Lower abdominal pain: pain was all due to distension and ileus doubt proctitis? will continue Flagyl IV for now no relief with NGT as it is not putting out much, will monitor (4) Diarrhea: report of diarrhea prior to admission, h/o C diff no diarrhea or flatus since admission C diff order cancelled due to lack of BM (5) VELMA (acute kidney injury): Likely ATN secondary to dehydration plus telmisartan plus Lasix Hold both meds since admission continue NSS + 40mEq of K at 80cc/hr Cr improved to 1. (6) Hypokalemia: will continue to replace. (7) Dehydration: As above responding well to IV fluids continue fluids since she is NPO (8) UTI (urinary tract infection): Present on admission Ordered urine culture/blood culture Ceftriaxone empirically 3 organisms on urine culture no growth on blood cultures continue Ceftriaxone for 7 days total, stop on 05/02 (9) Generalized weakness: Secondary to all of the above, will order physical therapy occupational therapy and also speech for swallow evaluation (10) Parkinsonism: unfortunately we will need to hold Sinemet with ileus (11) Dysphagia: did not do well with speech therapy, recommended nectar thick liquids was not tolerating them either RN could not get medications down this morning for now she is NPO will need to re-address once ileus resolved (12) Demand ischemia: demand ischemia from tachycardia. HR DID improve after colonic decompression. Updated family who was at bedside. Subjective Was called by nursing staff as HR was 120 in the AM. Went to examine patient, she reports no improvement in her abd. pain and bloating. She passed only a small amount of stool, yesterday but has not much passed gas. Patient feels generalized malaise and generalized weakness Review of Systems Review of Systems: Constitutional: Generalized weakness and fatigue, no fever or chills Eyes: no blurring of vision / no eye pain / no discharge / no redness ENT: no hearing loss / no epistaxis /no swallowing problems Respiratory: no cough / no wheezing / no SOB / no hemoptysis Cardiovascular: no Chest pain / no lower extremity edema / no palpitation Abdomen: Lower abdominal tenderness with mild diarrhea as a baseline Musculoskeletal: no joint pain / no muscle pain / no joint swelling Genitourinary: Increased frequency of urination with no burning sensation in the urine Neurologic: no focal weakness / no numbness/tingling / no ataxia Psychiatric: no depression symptoms / no anxiety / no insomnia Endocrine: no excessive thirst / no excessive urination Hematologic: no abnormal bleeding / no bruising / no LN swelling Skin: No rash / no pallor Gastrointestinal: + abdominal pain, + bloating, + constipation and + problem reported (keeps saying she is thirsty); no nausea, no vomiting and no diarrhea/loose stools Physical Exam Physical Exam: Constitutional: WD/WN, vitals as above Eyes: PERRL, conjunctivae normal, anicteric sclerae ENMT: external ear and nose normal, oropharynx normal Neck: trachea midline, no thyromegaly Respiratory: normal respiratory effort, lungs clear to auscultation Cardiovascular: RRR, no murmur, no edema Gastrointestinal (Abdomen): Inspection/Auscultation: + abdomen distended (tense), + high-pitched sounds and + hypoactive bowel sounds Percussion/Palpation: + abdomen tender, + tympanic to percussion and + abdomen firm; no guarding, no rebound, Musculoskeletal: no cyanosis or clubbing, extremities motor strength 5/5 Skin: no rashes, warm and dry Neurologic: patellar DTR's 2+ bilat, sensation intact and PERRL, EOMI, accommodation nl, no face palsy, no dysarthria Psychiatric: Orientation: alert, oriented to person and cooperative; + not oriented to place and + not oriented to time Lymphatic: no cervical or axillary lymphadenopathy Results & Data Vital Signs (Past 12 Hours) Vital Signs Temp Pulse Resp BP BP Pulse Ox 04/29/19 15:14 36.7 C 53 L 18 119/71 94 04/29/19 14:52 36.9 C 106 H 16 125/70 94 04/29/19 14:23 101 H 16 119/54 L 94 04/29/19 14:08 106 H 16 126/60 96 04/29/19 13:53 105 H 16 108/47 L 96 04/29/19 12:38 36.8 C 86 16 130/75 92 PG Care Time/CCT Total # of Minutes Spent Total Time Spent: 70 Total Time Spent with Patient: Total time spent is greater than 50% in coordination of care (as documented) at patient's floor/unit and/or counseling patient: Prolonged Care Time Prolonged Care Time: Yes Spent 70 minutes of total care time with patient. 8:00 to 8:50 9:20:to 9:30 15:00 to 15:10 (1) Diarrhea Diarrhea type: unspecified type Qualified Code(s): R19.7 - Diarrhea, unspecified (2) Parkinsonism Parkinsonism type: unspecified Qualified Code(s): G20 - Parkinson's disease
[2019-04-30 03:35] LABS: Partial Thromboplastin Ratio 2.2
[2019-04-30 03:38] LABS: Partial Thromboplastin Time 59.8 Seconds (21.0-31.0)
[2019-04-30] MEDS: metroNIDAZOLE 500 MG/100 ML BAG IV SCH ×3 (05:03→22:06)
[2019-04-30 06:53] LABS: Partial Thromboplastin Ratio 2.2
[2019-04-30 06:56] LABS: Partial Thromboplastin Time 60.4 Seconds (21.0-31.0)
[2019-04-30 07:18] LABS: Hematocrit (blood only) 34.1 % (37-47); Hemoglobin 10.7 g/dL (12.0-16.0); Mean Corpuscular Hemoglobin 28.6 pg (25-34); Mean Corpuscular Hgb Conc 31.4 g/dL (32-36); Mean Corpuscular Volume 91.2 fL (80-100); Mean Platelet Volume 12.8 fL (7.4-10.4); Platelet Count 215 K/uL (130-400); RDW Coefficient of Variation 15.4 % (11.5-14.5); RDW Standard Deviation 51.2 fL (36.4-46.3); Red Blood Count 3.74 M/uL (4.2-5.4); White Blood Count 17.71 K/uL (4.8-10.8)
[2019-04-30 07:41] LABS: BUN Creatinine Ratio 24.1 (10-20); Creatinine Clr Calc Pharmacy 23.1 ml/min; Est GFR (African American) 26.3; Est GFR (Non-African American) 22.7; Potassium 3.7 mmol/L (3.5-5.1)
--- NOTE | 2019-04-30 09:01 | Gastroenterology Progress Note ---
Date of Service April 30, 2019 Assessment & Plan (1) Ileus: 84 year old female w/ worsening colon dilation, NG to place x 48 hours for small bowel/large bowel dilation s/p colonoscopy w/ decompression and rectal tube in place, exam is markedly improved, KUB pending Management of ileus per primary team and general surgery Pt is now decompressed Would recommend NG to LIS Can flush rectal tube every 8 hours Daily KUB Will sign off. Thank you for allowing us to participate in the care of this patient. Please call with any acute changes, questions or concerns. Please see addendum below with additional recommendation from my supervising physician. Present on Admission?: Yes Supervising Physician Co-Signing Physician Notes I have seen and examined the patient with NOREEN Royal whose note reflects our findings and plan. Decompression tube in place. Still with some colonic distension. Abd non tender. VSS. Would correct electrolyte derangements. Subjective Pt is seen and evaluated, chart reviewed S/P colonoscopy w/ decompression rectal tube in place KUB this AM yet to be obtained But abd is markedly less distended this AM NG still in place Review of Systems Review of Systems: Other (Unable to comprehend pt) Physical Exam Constitutional: + ill appearing (chronically ill); no acute distress Neck: trachea midline Respiratory: normal respiratory effort Cardiovascular: Rate/Rhythm: regular rate and regular rhythm Gastrointestinal (Abdomen): Inspection/Auscultation: normal bowel sounds Percussion/Palpation: abdomen soft; abdomen nontender, no guarding and abdomen not rigid Skin: no rashes Results & Data Vital Signs (Past 12 Hours) Vital Signs Temp Pulse Resp BP BP Pulse Ox 04/30/19 07:18 36.7 C 64 16 126/70 93 04/29/19 23:40 36.5 C 84 18 104/57 L 94 Laboratory Results 04/30/19 04/30/19 04/30/19 Range/Units 06:57 06:09 06:09 WBC 17.71 H (4.8-10.8) K/uL RBC 3.74 L (4.2-5.4) M/uL Hgb 10.7 L (12.0-16.0) g/dL Hct 34.1 L (37-47) % MCV 91.2 (80-100) fL MCH 28.6 (25-34) pg MCHC 31.4 L (32-36) g/dL RDW Std Deviation 51.2 H (36.4-46.3) fL RDW Coeff of Jer 15.4 H (11.5-14.5) % Plt Count 215 (130-400) K/uL MPV 12.8 H (7.4-10.4) fL APTT (21.0-31.0) Seconds PTT Ratio VBG pH (7.36-7.41) VBG pCO2 (38-50) mmHg VBG pO2 mmHg VBG HCO3 mmol/L VBG O2 Saturation % VBG Base Excess mEq/L Barometric Pressure mm/Hg Sodium 149 H (136-145) mmol/L Potassium 3.7 D (3.5-5.1) mmol/L Chloride 123 H (98-107) mmol/L Carbon Dioxide 18 L (21-32) mmol/L Anion Gap 9.0 (3-11) BUN 48 H (7-18) mg/dl Creatinine 2.00 H (0.6-1.2) mg/dl Est Cr Clr Drug Dosing 23.1 ml/min Est GFR ( Amer) 26.3 Est GFR (Non-Af Amer) 22.7 BUN/Creatinine Ratio 24.1 H (10-20) Glucose 137 H (70-99) mg/dl Lactate 1.0 (0.4-2.0) mmol/L Calcium 9.0 (8.5-10.1) mg/dl Troponin I (0-0.045) ng/ml Procalcitonin (0-0.5) ng/ml 04/30/19 04/30/19 04/30/19 Range/Units 06:09 02:33 02:33 WBC (4.8-10.8) K/uL RBC (4.2-5.4) M/uL Hgb (12.0-16.0) g/dL Hct (37-47) % MCV (80-100) fL MCH (25-34) pg MCHC (32-36) g/dL RDW Std Deviation (36.4-46.3) fL RDW Coeff of Jer (11.5-14.5) % Plt Count (130-400) K/uL MPV (7.4-10.4) fL APTT 60.4 H* 59.8 H* (21.0-31.0) Seconds PTT Ratio 2.2 2.2 VBG pH (7.36-7.41) VBG pCO2 (38-50) mmHg VBG pO2 mmHg VBG HCO3 mmol/L VBG O2 Saturation % VBG Base Excess mEq/L Barometric Pressure mm/Hg Sodium (136-145) mmol/L Potassium (3.5-5.1) mmol/L Chloride (98-107) mmol/L Carbon Dioxide (21-32) mmol/L Anion Gap (3-11) BUN (7-18) mg/dl Creatinine (0.6-1.2) mg/dl Est Cr Clr Drug Dosing ml/min Est GFR ( Amer) Est GFR (Non-Af Amer) BUN/Creatinine Ratio (10-20) Glucose (70-99) mg/dl Lactate (0.4-2.0) mmol/L Calcium (8.5-10.1) mg/dl Troponin I 0.111 H* (0-0.045) ng/ml Procalcitonin (0-0.5) ng/ml 04/29/19 04/29/19 04/29/19 Range/Units 21:58 21:58 10:58 WBC (4.8-10.8) K/uL RBC (4.2-5.4) M/uL Hgb (12.0-16.0) g/dL Hct (37-47) % MCV (80-100) fL MCH (25-34) pg MCHC (32-36) g/dL RDW Std Deviation (36.4-46.3) fL RDW Coeff of Jer (11.5-14.5) % Plt Count (130-400) K/uL MPV (7.4-10.4) fL APTT 55.2 H* (21.0-31.0) Seconds PTT Ratio 2.0 VBG pH 7.32 L (7.36-7.41) VBG pCO2 34 L (38-50) mmHg VBG pO2 50 mmHg VBG HCO3 17 mmol/L VBG O2 Saturation 82.7 % VBG Base Excess -7.7 mEq/L Barometric Pressure 726.6 mm/Hg Sodium (136-145) mmol/L Potassium (3.5-5.1) mmol/L Chloride (98-107) mmol/L Carbon Dioxide (21-32) mmol/L Anion Gap (3-11) BUN (7-18) mg/dl Creatinine (0.6-1.2) mg/dl Est Cr Clr Drug Dosing ml/min Est GFR ( Amer) Est GFR (Non-Af Amer) BUN/Creatinine Ratio (10-20) Glucose (70-99) mg/dl Lactate (0.4-2.0) mmol/L Calcium (8.5-10.1) mg/dl Troponin I 0.136 H* (0-0.045) ng/ml Procalcitonin (0-0.5) ng/ml 04/29/19 04/29/19 04/29/19 Range/Units 10:48 10:48 08:49 WBC (4.8-10.8) K/uL RBC (4.2-5.4) M/uL Hgb (12.0-16.0) g/dL Hct (37-47) % MCV (80-100) fL MCH (25-34) pg MCHC (32-36) g/dL RDW Std Deviation (36.4-46.3) fL RDW Coeff of Jer (11.5-14.5) % Plt Count (130-400) K/uL MPV (7.4-10.4) fL APTT (21.0-31.0) Seconds PTT Ratio VBG pH (7.36-7.41) VBG pCO2 (38-50) mmHg VBG pO2 mmHg VBG HCO3 mmol/L VBG O2 Saturation % VBG Base Excess mEq/L Barometric Pressure mm/Hg Sodium (136-145) mmol/L Potassium (3.5-5.1) mmol/L Chloride (98-107) mmol/L Carbon Dioxide (21-32) mmol/L Anion Gap (3-11) BUN (7-18) mg/dl Creatinine (0.6-1.2) mg/dl Est Cr Clr Drug Dosing ml/min Est GFR ( Amer) Est GFR (Non-Af Amer) BUN/Creatinine Ratio (10-20) Glucose (70-99) mg/dl Lactate 1.2 (0.4-2.0) mmol/L Calcium (8.5-10.1) mg/dl Troponin I 0.137 H* (0-0.045) ng/ml Procalcitonin 0.25 (0-0.5) ng/ml
[2019-04-30] MEDS: POTASSIUM CHLORIDE 40 MEQ in SODIUM CHLORIDE 0.9% 1000ML 1,000 ML IV SCH ×2 (09:07→22:06)
[2019-04-30] MEDS: cefTRIAXone SODIUM 1,000 MG/50 ML BAG IV SCH (09:08)
--- NOTE | 2019-04-30 09:40 | XRay Report ---
KUB HISTORY: Follow up study in a patient with colonic distention assess dilation COMPARISON: KUB 04/29/2019 FINDINGS: Unchanged positioning of the enteric tube. Rectal catheter is again noted projecting over t he central pelvis. There is persistent colonic dilation which appears generally unchanged in comparis on, loops measuring up to 10.1 cm, previously measured at approximately 9.0 cm. No pneumatosis or pne umoperitoneum. Cholecystectomy. No urolith. Degenerative changes of the spine, pelvis and hips. IMPRESSION: 1. Stable positioning of the enteric tube. 2. Persistent colonic distention, not significantly changed from comparison. Electronically signed by: J Carlos Rosa M.D. 04/30/2019 9:38 AM
--- NOTE | 2019-04-30 09:46 | Surgery Progress Note ---
Date of Service April 30, 2019 Assessment & Plan (1) Ileus: POD # 1 s/p colonoscopy for colonic decompression -vitals stable, afebrile - Leukocytosis improved to 17K (24K yesterday) -Lactic acid 1.0 this morning - Rectal tube placed - KUB today still showing distended colon at 10 cm but abdominal distention has vastly improved and patient is not having any abdominal pain Plan: No immediate surgical intervention required Rectal tube management by GI service Continue to keep NGT for now Continue medical management Should consider possible discussion with tertiary center ([place] or [place]) in regards to management if colon continues to be dilated. Given psuedoobstruction , may require colon resection if conservative measures do not work and in this regard Dr. Billy would recommend transfer to tertiary center for further management by colorectal surgeon. KUB tomorrow morning repeat am labs while NPO Dr. Billy has seen and examined pt, agrees with above. Subjective hard to understand given dry mouth and baseline speech not having any abdominal pain, feels less bloated and abdomen is not as hard Physical Exam Constitutional: no acute distress Gastrointestinal (Abdomen): Inspection/Auscultation: + abdomen distended (mild but vastly improved) Percussion/Palpation: abdomen soft; abdomen nontender, no guarding and abdomen not rigid rectal tube present with little output in bag Skin: no rashes, warm and dry Psychiatric: Orientation: alert Results & Data Vital Signs (Past 12 Hours) Vital Signs Temp Pulse Resp BP BP Pulse Ox 04/30/19 07:18 36.7 C 64 16 126/70 93 04/29/19 23:40 36.5 C 84 18 104/57 L 94 Laboratory Results 04/30/19 04/30/19 04/30/19 Range/Units 06:57 06:09 06:09 WBC 17.71 H (4.8-10.8) K/uL RBC 3.74 L (4.2-5.4) M/uL Hgb 10.7 L (12.0-16.0) g/dL Hct 34.1 L (37-47) % MCV 91.2 (80-100) fL MCH 28.6 (25-34) pg MCHC 31.4 L (32-36) g/dL RDW Std Deviation 51.2 H (36.4-46.3) fL RDW Coeff of Jer 15.4 H (11.5-14.5) % Plt Count 215 (130-400) K/uL MPV 12.8 H (7.4-10.4) fL APTT (21.0-31.0) Seconds PTT Ratio VBG pH (7.36-7.41) VBG pCO2 (38-50) mmHg VBG pO2 mmHg VBG HCO3 mmol/L VBG O2 Saturation % VBG Base Excess mEq/L Barometric Pressure mm/Hg Sodium 149 H (136-145) mmol/L Potassium 3.7 D (3.5-5.1) mmol/L Chloride 123 H (98-107) mmol/L Carbon Dioxide 18 L (21-32) mmol/L Anion Gap 9.0 (3-11) BUN 48 H (7-18) mg/dl Creatinine 2.00 H (0.6-1.2) mg/dl Est Cr Clr Drug Dosing 23.1 ml/min Est GFR ( Amer) 26.3 Est GFR (Non-Af Amer) 22.7 BUN/Creatinine Ratio 24.1 H (10-20) Glucose 137 H (70-99) mg/dl Lactate 1.0 (0.4-2.0) mmol/L Calcium 9.0 (8.5-10.1) mg/dl Troponin I (0-0.045) ng/ml Procalcitonin (0-0.5) ng/ml 04/30/19 04/30/19 04/30/19 Range/Units 06:09 02:33 02:33 WBC (4.8-10.8) K/uL RBC (4.2-5.4) M/uL Hgb (12.0-16.0) g/dL Hct (37-47) % MCV (80-100) fL MCH (25-34) pg MCHC (32-36) g/dL RDW Std Deviation (36.4-46.3) fL RDW Coeff of Jer (11.5-14.5) % Plt Count (130-400) K/uL MPV (7.4-10.4) fL APTT 60.4 H* 59.8 H* (21.0-31.0) Seconds PTT Ratio 2.2 2.2 VBG pH (7.36-7.41) VBG pCO2 (38-50) mmHg VBG pO2 mmHg VBG HCO3 mmol/L VBG O2 Saturation % VBG Base Excess mEq/L Barometric Pressure mm/Hg Sodium (136-145) mmol/L Potassium (3.5-5.1) mmol/L Chloride (98-107) mmol/L Carbon Dioxide (21-32) mmol/L Anion Gap (3-11) BUN (7-18) mg/dl Creatinine (0.6-1.2) mg/dl Est Cr Clr Drug Dosing ml/min Est GFR ( Amer) Est GFR (Non-Af Amer) BUN/Creatinine Ratio (10-20) Glucose (70-99) mg/dl Lactate (0.4-2.0) mmol/L Calcium (8.5-10.1) mg/dl Troponin I 0.111 H* (0-0.045) ng/ml Procalcitonin (0-0.5) ng/ml 04/29/19 04/29/19 04/29/19 Range/Units 21:58 21:58 10:58 WBC (4.8-10.8) K/uL RBC (4.2-5.4) M/uL Hgb (12.0-16.0) g/dL Hct (37-47) % MCV (80-100) fL MCH (25-34) pg MCHC (32-36) g/dL RDW Std Deviation (36.4-46.3) fL RDW Coeff of Jer (11.5-14.5) % Plt Count (130-400) K/uL MPV (7.4-10.4) fL APTT 55.2 H* (21.0-31.0) Seconds PTT Ratio 2.0 VBG pH 7.32 L (7.36-7.41) VBG pCO2 34 L (38-50) mmHg VBG pO2 50 mmHg VBG HCO3 17 mmol/L VBG O2 Saturation 82.7 % VBG Base Excess -7.7 mEq/L Barometric Pressure 726.6 mm/Hg Sodium (136-145) mmol/L Potassium (3.5-5.1) mmol/L Chloride (98-107) mmol/L Carbon Dioxide (21-32) mmol/L Anion Gap (3-11) BUN (7-18) mg/dl Creatinine (0.6-1.2) mg/dl Est Cr Clr Drug Dosing ml/min Est GFR ( Amer) Est GFR (Non-Af Amer) BUN/Creatinine Ratio (10-20) Glucose (70-99) mg/dl Lactate (0.4-2.0) mmol/L Calcium (8.5-10.1) mg/dl Troponin I 0.136 H* (0-0.045) ng/ml Procalcitonin (0-0.5) ng/ml 04/29/19 04/29/19 Range/Units 10:48 10:48 WBC (4.8-10.8) K/uL RBC (4.2-5.4) M/uL Hgb (12.0-16.0) g/dL Hct (37-47) % MCV (80-100) fL MCH (25-34) pg MCHC (32-36) g/dL RDW Std Deviation (36.4-46.3) fL RDW Coeff of Jer (11.5-14.5) % Plt Count (130-400) K/uL MPV (7.4-10.4) fL APTT (21.0-31.0) Seconds PTT Ratio VBG pH (7.36-7.41) VBG pCO2 (38-50) mmHg VBG pO2 mmHg VBG HCO3 mmol/L VBG O2 Saturation % VBG Base Excess mEq/L Barometric Pressure mm/Hg Sodium (136-145) mmol/L Potassium (3.5-5.1) mmol/L Chloride (98-107) mmol/L Carbon Dioxide (21-32) mmol/L Anion Gap (3-11) BUN (7-18) mg/dl Creatinine (0.6-1.2) mg/dl Est Cr Clr Drug Dosing ml/min Est GFR ( Amer) Est GFR (Non-Af Amer) BUN/Creatinine Ratio (10-20) Glucose (70-99) mg/dl Lactate (0.4-2.0) mmol/L Calcium (8.5-10.1) mg/dl Troponin I 0.137 H* (0-0.045) ng/ml Procalcitonin 0.25 (0-0.5) ng/ml
[2019-04-30] MEDS: FLUTICASONE PROPIONATE NA SPR 16 GM BTL SCH (11:39)
[2019-04-30] MEDS: HEPARIN SODIUM/DEXTROSE 25,000 UNITS/500 ML BAG IV SCH (16:38)
--- NOTE | 2019-04-30 22:31 | Hospitalist Progress Note ---
Date of Service April 30, 2019 Assessment & Plan (1) Ileus: Patient appears to be doing better. WBC HR is better. Abdomen is softer. Imaging still showing dilatation. will continue NG tube suction NGT placed, in good position on repeat KUB and CXR NGT placed because patient is high aspiration risk, if she would vomit could be catastrophic consult general surgery, CURRENTLY ON NG Tube suction. Will monitor (2) DVT (deep venous thrombosis): bilateral DVT in superficial femoral, popliteal veins she does not get much activity according to her son will treat with Lovenox 1mg/kg q12 for now will change to Heparin drip starting this evening because if she would need surgery would want to stop quickly unsure she would be a good correction candidate for anticoagulation she does not even take aspirin due to h/o falls and intracranial bleed from a fall Vascular agrees with IVC filter. Will need to get consent from son as he is POA. CTA chest on admission negative for PE (3) Lower abdominal pain: pain was all due to distension and ileus doubt proctitis? will continue Flagyl IV for now no relief with NGT as it is not putting out much, will monitor (4) Diarrhea: report of diarrhea prior to admission, h/o C diff no diarrhea or flatus since admission C diff order cancelled due to lack of BM (5) VELMA (acute kidney injury): Likely ATN secondary to dehydration plus telmisartan plus Lasix Hold both meds since admission continue NSS + 40mEq of K at 80cc/hr Cr improved to 1. (6) Hypokalemia: will continue to replace. (7) Dehydration: As above responding well to IV fluids continue fluids since she is NPO (8) UTI (urinary tract infection): Present on admission Ordered urine culture/blood culture Ceftriaxone empirically 3 organisms on urine culture no growth on blood cultures continue Ceftriaxone for 7 days total, stop on 05/02 (9) Generalized weakness: Secondary to all of the above, will order physical therapy occupational therapy and also speech for swallow evaluation (10) Parkinsonism: unfortunately we will need to hold Sinemet with ileus (11) Dysphagia: did not do well with speech therapy, recommended nectar thick liquids was not tolerating them either RN could not get medications down this morning for now she is NPO will need to re-address once ileus resolved (12) Demand ischemia: demand ischemia from tachycardia. HR DID improve after colonic decompression. Updated family who was at bedside. Subjective Patient is more awake and feeling better. Patient denies any new symptoms. She states her abdomen is much softer. Family is at bedside and agrees. Review of Systems Review of Systems: Constitutional: Generalized weakness and fatigue, no fever or chills Eyes: no blurring of vision / no eye pain / no discharge / no redness ENT: no hearing loss / no epistaxis /no swallowing problems Respiratory: no cough / no wheezing / no SOB / no hemoptysis Cardiovascular: no Chest pain / no lower extremity edema / no palpitation Abdomen: Lower abdominal tenderness with mild diarrhea as a baseline Musculoskeletal: no joint pain / no muscle pain / no joint swelling Genitourinary: Increased frequency of urination with no burning sensation in the urine Neurologic: no focal weakness / no numbness/tingling / no ataxia Psychiatric: no depression symptoms / no anxiety / no insomnia Endocrine: no excessive thirst / no excessive urination Hematologic: no abnormal bleeding / no bruising / no LN swelling Skin: No rash / no pallor Gastrointestinal: + abdominal pain, + bloating, + constipation and + problem reported (keeps saying she is thirsty); no nausea, no vomiting and no diarrhea/loose stools Physical Exam Physical Exam: Constitutional: WD/WN, vitals as above Eyes: PERRL, conjunctivae normal, anicteric sclerae ENMT: external ear and nose normal, oropharynx normal Neck: trachea midline, no thyromegaly Respiratory: normal respiratory effort, lungs clear to auscultation Cardiovascular: RRR, no murmur, no edema Gastrointestinal (Abdomen): Inspection/Auscultation: + abdomen distended, softer, + hypoactive bowel sounds Percussion/Palpation:softer minimially tender; no guarding, no rebound, Musculoskeletal: no cyanosis or clubbing, extremities motor strength 5/5 Skin: no rashes, warm and dry Neurologic: patellar DTR's 2+ bilat, sensation intact and PERRL, EOMI, accommodation nl, no face palsy, no dysarthria Psychiatric: Orientation: alert, oriented to person and cooperative; + not oriented to place and + not oriented to time Lymphatic: no cervical or axillary lymphadenopathy Results & Data Vital Signs (Past 12 Hours) Vital Signs Temp Pulse Resp BP BP Pulse Ox 04/30/19 22:21 36.8 C 90 16 138/68 92 04/30/19 15:02 36.5 C 72 18 126/82 93 PG Care Time/CCT Total # of Minutes Spent Total Time Spent with Patient: Total time spent is greater than 50% in coordination of care (as documented) at patient's floor/unit and/or counseling patient: (1) Diarrhea Diarrhea type: unspecified type Qualified Code(s): R19.7 - Diarrhea, unspecified (2) Parkinsonism Parkinsonism type: unspecified Qualified Code(s): G20 - Parkinson's disease
[2019-05-01] MEDS: metroNIDAZOLE 500 MG/100 ML BAG IV SCH ×3 (04:41→20:52)
[2019-05-01 06:27] LABS: Partial Thromboplastin Ratio 2.7
[2019-05-01 06:29] LABS: Partial Thromboplastin Time 73.1 Seconds (21.0-31.0)
--- NOTE | 2019-05-01 07:49 | XRay Report ---
XR KUB/Abdomen 1 view CLINICAL HISTORY: 84 years-old Female presenting with eval for large bowel dilation, s/p decompressio n. TECHNIQUE: Single supine view of the abdomen was obtained. COMPARISON: 04/30/2019. FINDINGS: Gaseous distention of large bowel, which is stable from the prior exam. The appearance diameter may b e affected by magnification. A catheter is tightly looped within the pelvis. Excreted contrast opacif ies the urinary bladder. Cholecystectomy clips noted. Nasogastric tube terminates at the fundus. Side hole is also contained within the gastric lumen. Allowing for bowel gas and stool, no calcifications to suggest nephrolithiasis. Degenerative changes of the spine. Small pleural effusions may still be present. IMPRESSION: 1. Overall stable appearance of gaseous distention of large bowel. This does however appear improved over the CT from 04/29/2019. 2. The catheter looped within the pelvis may represent a rectal tube. Under this assumption, there i s a significantly redundant portion looped within the rectal vault. This could be repositioned if so desired. 3. Appropriately positioned nasogastric tube. Electronically signed by: Arun Thomas M.D. 05/01/2019 7:48 AM
[2019-05-01] MEDS: FLUTICASONE PROPIONATE NA SPR 16 GM BTL SCH (07:54)
[2019-05-01 08:18] LABS: Basophils # (auto) 0.03 K/uL (0-0.2); Basophils % (auto) 0.2 %; Eosinophils # (auto) 0.14 K/uL (0-0.5); Hematocrit (blood only) 32.4 % (37-47); Hemoglobin 10.3 g/dL (12.0-16.0); Immature Granulocytes # (auto) 0.53 K/uL (0.00-0.02); Immature Granulocytes % (auto) 3.6 %; Lymphocytes # (auto) 1.44 K/uL (1.2-3.4); Lymphocytes % (auto) 9.8 %; Mean Corpuscular Hemoglobin 28.4 pg (25-34); Mean Corpuscular Hgb Conc 31.8 g/dL (32-36); Mean Corpuscular Volume 89.3 fL (80-100); Mean Platelet Volume 11.3 fL (7.4-10.4); Monocytes # (auto) 1.27 K/uL (0.11-0.59); Monocytes % (auto) 8.7 %; Neutrophils # (auto) 11.27 K/uL (1.4-6.5); Neutrophils % (auto) 76.7 %; Platelet Count 196 K/uL (130-400); RDW Coefficient of Variation 15.4 % (11.5-14.5); RDW Standard Deviation 49.4 fL (36.4-46.3); Red Blood Count 3.63 M/uL (4.2-5.4); White Blood Count 14.68 K/uL (4.8-10.8)
[2019-05-01 08:31] LABS: BUN Creatinine Ratio 26.7 (10-20); Calcium 9.1 mg/dl (8.5-10.1); Creatinine Clr Calc Pharmacy 31.4 ml/min; Est GFR (African American) 38.1; Est GFR (Non-African American) 32.9; Potassium 3.9 mmol/L (3.5-5.1)
--- NOTE | 2019-05-01 08:40 | Gastroenterology Progress Note ---
Date of Service May 01, 2019 Assessment & Plan (1) Ileus: 84 year old female w/ worsening colon dilation, NG to place x 48 hours for small bowel/large bowel dilation s/p colonoscopy w/ decompression and rectal tube in place, exam is markedly improved, KUB w/ improved dilation from CT but still colonic dilation but concern for coiled rectal tube - Electrolyte management per primary service, sodium elevated. Should check mag, phos - Daily KUB - Will discuss existing rectal tube with attending - No GI plan for repeat colonoscopy Thank you for allowing us to participate in the care of this patient. Please call with any acute changes, questions or concerns. Please see addendum below with additional recommendation from my supervising physician. Present on Admission?: Yes Subjective Pt was seen and evaluated, chart reviewed. KUB reviewed. Rectal tube kinked on imaging No nausea, vomiting No BM. KUB: Overall stable appearance of gaseous distention of large bowel. This does however appear improved over the CT from 04/29/2019. The catheter looped within the pelvis may represent a rectal tube. Under this assumption, there is a significantly redundant portion looped within the rectal vault. This could be repositioned if so desired.. Appropriately positioned nasogastric tube. Review of Systems Constitutional: no fever, no chills and no fatigue Respiratory: no cough and no dyspnea Cardiovascular: no chest pain and no radiating jaw, neck or arm pain Gastrointestinal: no abdominal pain and no nausea Physical Exam Constitutional: + ill appearing and + thin; no acute distress Respiratory: normal respiratory effort Cardiovascular: Rate/Rhythm: regular rate and regular rhythm Gastrointestinal (Abdomen): Inspection/Auscultation: + abdomen distended; + abnormal bowel sounds (diminished) Percussion/Palpation: abdomen soft; no guarding and abdomen not rigid Skin: no rashes, warm and dry Results & Data Vital Signs (Past 12 Hours) Vital Signs Temp Pulse Resp BP Pulse Ox 05/01/19 06:45 37 C 83 20 143/84 H 92 04/30/19 22:21 36.8 C 90 16 138/68 92 Laboratory Results 05/01/19 05/01/19 05/01/19 Range/Units 05:42 05:42 05:37 WBC 14.68 H (4.8-10.8) K/uL RBC 3.63 L (4.2-5.4) M/uL Hgb 10.3 L (12.0-16.0) g/dL Hct 32.4 L (37-47) % MCV 89.3 (80-100) fL MCH 28.4 (25-34) pg MCHC 31.8 L (32-36) g/dL RDW Std Deviation 49.4 H (36.4-46.3) fL RDW Coeff of Jer 15.4 H (11.5-14.5) % Plt Count 196 (130-400) K/uL MPV 11.3 H (7.4-10.4) fL Immature Gran % (Auto) 3.6 % Neut % (Auto) 76.7 % Lymph % (Auto) 9.8 % [place] % (Auto) 8.7 % Eos % (Auto) 1.0 % Baso % (Auto) 0.2 % Immature Gran # (Auto) 0.53 H (0.00-0.02) K/uL Neut # (Auto) 11.27 H (1.4-6.5) K/uL Lymph # (Auto) 1.44 (1.2-3.4) K/uL [place] # (Auto) 1.27 H (0.11-0.59) K/uL Eos # (Auto) 0.14 (0-0.5) K/uL Baso # (Auto) 0.03 (0-0.2) K/uL APTT 73.1 H* (21.0-31.0) Seconds PTT Ratio 2.7 Sodium 152 H (136-145) mmol/L Potassium 3.9 (3.5-5.1) mmol/L Chloride 127 H (98-107) mmol/L Carbon Dioxide 17 L (21-32) mmol/L Anion Gap 8.0 (3-11) BUN 39 H (7-18) mg/dl Creatinine 1.47 H D (0.6-1.2) mg/dl Est Cr Clr Drug Dosing 31.4 ml/min Est GFR ( Amer) 38.1 Est GFR (Non-Af Amer) 32.9 BUN/Creatinine Ratio 26.7 H (10-20) Glucose 119 H (70-99) mg/dl Calcium 9.1 (8.5-10.1) mg/dl Troponin I (0-0.045) ng/ml 04/30/19 04/30/19 Range/Units 18:49 10:41 WBC (4.8-10.8) K/uL RBC (4.2-5.4) M/uL Hgb (12.0-16.0) g/dL Hct (37-47) % MCV (80-100) fL MCH (25-34) pg MCHC (32-36) g/dL RDW Std Deviation (36.4-46.3) fL RDW Coeff of Jer (11.5-14.5) % Plt Count (130-400) K/uL MPV (7.4-10.4) fL Immature Gran % (Auto) % Neut % (Auto) % Lymph % (Auto) % [place] % (Auto) % Eos % (Auto) % Baso % (Auto) % Immature Gran # (Auto) (0.00-0.02) K/uL Neut # (Auto) (1.4-6.5) K/uL Lymph # (Auto) (1.2-3.4) K/uL [place] # (Auto) (0.11-0.59) K/uL Eos # (Auto) (0-0.5) K/uL Baso # (Auto) (0-0.2) K/uL APTT (21.0-31.0) Seconds PTT Ratio Sodium (136-145) mmol/L Potassium (3.5-5.1) mmol/L Chloride (98-107) mmol/L Carbon Dioxide (21-32) mmol/L Anion Gap (3-11) BUN (7-18) mg/dl Creatinine (0.6-1.2) mg/dl Est Cr Clr Drug Dosing ml/min Est GFR ( Amer) Est GFR (Non-Af Amer) BUN/Creatinine Ratio (10-20) Glucose (70-99) mg/dl Calcium (8.5-10.1) mg/dl Troponin I 0.067 H* 0.084 H* (0-0.045) ng/ml
[2019-05-01] MEDS: POTASSIUM CHLORIDE 40 MEQ in D5W AND 1/2NSS 1,000 ML/1,000 ML BAG IV SCH ×2 (10:20→23:15)
[2019-05-01] MEDS: POTASSIUM CHLORIDE 40 MEQ in SODIUM CHLORIDE 0.9% 1000ML 1,000 ML IV SCH (10:20)
--- NOTE | 2019-05-01 10:25 | Surgery Progress Note ---
Date of Service May 01, 2019 Assessment & Plan (1) Pseudoobstruction of colon: Day #2 s/p colonoscopy for colonic decompression -vitals stable, afebrile - Leukocytosis improved to K (17K yesterday) - KUB today still showing distended colon, stable. Rectal tube looks kinked on imaging. Small bowel is not dilated. - Minimal NGT output Plan: No immediate surgical intervention required Rectal tube management by GI service, would recommend replacement or repositioning Discontinue NGT as there is minimal output and SB is not dilated on imaging Keep NPO until GI determines plan for rectal tube. If no further intervention can have clears but may need speech therapy first. Continue medical management Should consider discussion with tertiary center ([place] or [place]) in regards to management if colon continues to be dilated. Given psuedoobstruction , may require colon resection if conservative measures do not work and in this regard Dr. Billy would recommend transfer to tertiary center for further management by colorectal surgeon. repeat am labs while NPO Dr. Billy has seen and examined pt, agrees with above. Subjective feeling better no abdominal pain no n/v Physical Exam Constitutional: WD/WN, vitals as above no acute distress Respiratory: normal respiratory effort; no respiratory distress and no labored breathing Gastrointestinal (Abdomen): Inspection/Auscultation: + abdomen distended Percussion/Palpation: abdomen soft; abdomen nontender, no guarding and abdomen not rigid rectal tube with some stool in the tube and bag (scant amount) Skin: no rashes, warm and dry Psychiatric: Orientation: alert Results & Data Vital Signs (Past 12 Hours) Vital Signs Temp Pulse Resp BP Pulse Ox 05/01/19 06:45 37 C 83 20 143/84 H 92 04/30/19 22:21 36.8 C 90 16 138/68 92
[2019-05-01] MEDS ORDERED: METHYLNALTREXONE BROMIDE 12 MG/0.6 ML VIAL SQ STA (11:16)
[2019-05-01 13:31] LABS: Partial Thromboplastin Ratio 2.1
[2019-05-01 13:36] LABS: Partial Thromboplastin Time 56.2 Seconds (21.0-31.0)
[2019-05-01] MEDS: HEPARIN SODIUM/DEXTROSE 25,000 UNITS/500 ML BAG IV SCH (18:07)
--- NOTE | 2019-05-01 23:13 | Hospitalist Progress Note ---
Date of Service May 01, 2019 Assessment & Plan (1) Ileus: Patient appears to be doing better. WBC HR is better. Abdomen is softer. Imaging still showing dilatation. Now off NG tube and rectal tube. She improved with colonic decompression, rectal tube was coiled so this was removied yesterday. will monitor her repeat KUB. consult general surgery, CURRENTLY ON NG Tube suction. Will monitor (2) DVT (deep venous thrombosis): bilateral DVT in superficial femoral, popliteal veins she does not get much activity according to her son will treat with Lovenox 1mg/kg q12 for now will change to Heparin drip starting this evening because if she would need surgery would want to stop quickly unsure she would be a good fci candidate for anticoagulation she does not even take aspirin due to h/o falls and intracranial bleed from a fall Vascular agrees with IVC filter. Will need to get consent from son as he is POA. CTA chest on admission negative for PE (3) Lower abdominal pain: pain was all due to distension and ileus doubt proctitis? will continue Flagyl IV for now no relief with NGT as it is not putting out much, will monitor (4) Diarrhea: report of diarrhea prior to admission, h/o C diff no diarrhea or flatus since admission C diff order cancelled due to lack of BM (5) VELMA (acute kidney injury): Likely ATN secondary to dehydration plus telmisartan plus Lasix Hold both meds since admission continue NSS + 40mEq of K at 80cc/hr Cr improved to 1. (6) Hypokalemia: will continue to replace. (7) Dehydration: As above responding well to IV fluids continue fluids since she is NPO (8) UTI (urinary tract infection): Present on admission Ordered urine culture/blood culture Ceftriaxone empirically 3 organisms on urine culture no growth on blood cultures continue Ceftriaxone for 7 days total, stop on 05/02 (9) Generalized weakness: Secondary to all of the above, will order physical therapy occupational therapy and also speech for swallow evaluation (10) Parkinsonism: unfortunately we will need to hold Sinemet with ileus (11) Dysphagia: did not do well with speech therapy, recommended nectar thick liquids was not tolerating them either RN could not get medications down this morning for now she is NPO will need to re-address once ileus resolved (12) Demand ischemia: demand ischemia from tachycardia. HR DID improve after colonic decompression. Updated family who was at bedside. Subjective Patient reports no new symptoms today. Review of Systems Review of Systems: All systems reviewed & are unremarkable except as noted in HPI & below Physical Exam Physical Exam: Constitutional: WD/WN, vitals as above Eyes: PERRL, conjunctivae normal, anicteric sclerae ENMT: external ear and nose normal, oropharynx normal Neck: trachea midline, no thyromegaly Respiratory: normal respiratory effort, lungs clear to auscultation Cardiovascular: RRR, no murmur, no edema Gastrointestinal (Abdomen): Inspection/Auscultation: + abdomen distended, softer, + hypoactive bowel sounds Percussion/Palpation:softer, less tender; no guarding, no rebound, Musculoskeletal: no cyanosis or clubbing, extremities motor strength 5/5 Skin: no rashes, warm and dry Neurologic: patellar DTR's 2+ bilat, sensation intact and PERRL, EOMI, accommodation nl, no face palsy, no dysarthria Psychiatric: Orientation: alert, oriented to person and cooperative; + not oriented to place and + not oriented to time Lymphatic: no cervical or axillary lymphadenopathy Results & Data Vital Signs (Past 12 Hours) Vital Signs Temp Pulse Resp BP Pulse Ox 05/01/19 22:35 36.7 C 86 20 144/78 H 97 05/01/19 14:20 36.9 C 78 16 124/79 91 05/01/19 12:34 36.3 C L 92 H 16 145/80 H 96 PG Care Time/CCT Total # of Minutes Spent Total Time Spent with Patient: Total time spent is greater than 50% in coordination of care (as documented) at patient's floor/unit and/or counseling patient: (1) Diarrhea Diarrhea type: unspecified type Qualified Code(s): R19.7 - Diarrhea, unspecified (2) Parkinsonism Parkinsonism type: unspecified Qualified Code(s): G20 - Parkinson's disease
[2019-05-02] MEDS ORDERED: MoRPHine SULFATE 2 MG/ML CARP IV STA (03:02)
[2019-05-02] MEDS: metroNIDAZOLE 500 MG/100 ML BAG IV SCH ×2 (05:21→13:03)
[2019-05-02 05:51] LABS: Hematocrit (blood only) 34.6 % (37-47); Hemoglobin 11.1 g/dL (12.0-16.0); Mean Corpuscular Hemoglobin 28.8 pg (25-34); Mean Corpuscular Hgb Conc 32.1 g/dL (32-36); Mean Corpuscular Volume 89.9 fL (80-100); Mean Platelet Volume 11.1 fL (7.4-10.4); Platelet Count 154 K/uL (130-400); RDW Coefficient of Variation 15.9 % (11.5-14.5); RDW Standard Deviation 50.8 fL (36.4-46.3); Red Blood Count 3.85 M/uL (4.2-5.4); White Blood Count 14.32 K/uL (4.8-10.8)
[2019-05-02 06:10] LABS: Partial Thromboplastin Ratio 2.2
[2019-05-02 06:18] LABS: Creatinine Clr Calc Pharmacy 38.4 ml/min; Est GFR (African American) 48.7; Est GFR (Non-African American) 42.1
[2019-05-02 06:21] LABS: Partial Thromboplastin Time 59.2 Seconds (21.0-31.0)
[2019-05-02] MEDS: FLUTICASONE PROPIONATE NA SPR 16 GM BTL SCH (07:27)
--- NOTE | 2019-05-02 08:52 | Gastroenterology Progress Note ---
Date of Service May 02, 2019 Assessment & Plan (1) Ileus: 84 year old female w/ worsening colon dilation, NG to place x 48 hours for small bowel/large bowel dilation s/p colonoscopy w/ decompression and rectal tube in place, exam is markedly improved, KUB w/ improved dilation from CT but still colonic dilation but concern for coiled rectal tube. NG, rectal tube pulled - KUB this AM pending - Electrolyte management per primary service, sodium elevated. Should check mag, phos - Daily KUB - No GI plan for repeat colonoscopy - FIRE PROTECTION SPECIALIST evaluation Thank you for allowing us to participate in the care of this patient. Please call with any acute changes, questions or concerns. Please see addendum below with additional recommendation from my supervising physician. Supervising Physician Co-Signing Physician Notes I saw and evaluated the patient. She has recurrent abdominal distention associated with nausea and a KUB was showing worsening dilation of the colon. General surgery has requested a repeat colonic decompression. Plans Colonic decompression, consented pain from the patient's power of claims attorney Follow-up per general surgery Subjective Pt was seen and evaluated, chart reviewed. KUB ye tot be obtained NG and rectal rube removed Relistor given last evening NPO for FIRE PROTECTION SPECIALIST evaluation Review of Systems Constitutional: no fever and no chills Respiratory: no cough Cardiovascular: no chest pain Gastrointestinal: + abdominal pain (generalized); no coffee ground emesis, no hematemesis, no blood in stools and no melena Physical Exam Constitutional: + ill appearing (chronic); no acute distress Respiratory: normal respiratory effort Cardiovascular: Rate/Rhythm: regular rate and regular rhythm Gastrointestinal (Abdomen): Inspection/Auscultation: + abdomen distended (mild, soft) and normal bowel sounds (diminished) Percussion/Palpation: abdomen soft; no guarding and abdomen not rigid Skin: no rashes, warm and dry Results & Data Vital Signs (Past 12 Hours) Vital Signs Temp Pulse Resp BP Pulse Ox 05/02/19 06:56 36.7 C 90 21 159/87 H 96 05/01/19 22:35 36.7 C 86 20 144/78 H 97
--- NOTE | 2019-05-02 10:00 | XRay Report ---
KUB HISTORY: assess colonic dilation COMPARISON: KUB 05/01/2019. FINDINGS: The catheter within the pelvis has been removed. Progressive dilatation within the colon wh ich measures up to 10 cm in diameter. This favors the sigmoid colon. Multiple pelvic phleboliths are again noted. Prior cholecystectomy. No dilated loops of small bowel identified. The nasogastric tube is no longer visualized and has also been removed. No renal calculi. No ureteral calculi. No definite pneumoperitoneum or pneumatosis. IMPRESSION: Progressive dilatation of the colon which favors the sigmoid colon compared to the prior study. Electronically signed by: Colten Brian M.D. 05/02/2019 9:58 AM
--- NOTE | 2019-05-02 10:05 | Surgery Progress Note ---
Date of Service May 02, 2019 Assessment & Plan (1) Pseudoobstruction of colon: Day #3 s/p colonoscopy for colonic decompression, rectal tube removed yesterday as it was kinked - vitals stable, afebrile - Leukocytosis stable at 14 K - KUB this morning orded, not taken yet - No bowel function after realistor Plan: Will consult palliative care to discuss goals of care with patient and family. Son/POA is traveling up from [place]. Need to determine next steps of care depending on KUB results. If still distended, need to consider repeat decompression vs possible surgical intervention vs palliative goals/decision From surgical standpoint, if GI not planning for decompression and patient wishes to proceed with surgical intervention recommend transfer to tertiary center given age and comorbidities. Will await KUB results, palliative care consultation and pt/family decision. Dr. Billy has seen and examined pt, agrees with above. Subjective Step daughter Claudia at bedside. States patient is not doing well today. Drowsy, agitated, distended, hungry but not passing any gas. patient states she is not having any abdominal pain having pain in her LUE swelling and bruising of the hand and wrist thirsty Had long discussion with step daughter. States patient's son/POA is traveling up from [place]. Repeat KUB this morning order but not taken yet. Need to determine next step/action plan if colon still dilated. Claudia states that she thinks a palliative consult would be best to determine goals of care with the family before any rash decisions are made. Physical Exam Constitutional: elderly female, drowsy, sleeping upon entering room but easily awakens to verbal cues. No distress Respiratory: no respiratory distress and no labored breathing Gastrointestinal (Abdomen): Inspection/Auscultation: + abdomen distended; + abnormal bowel sounds Percussion/Palpation: abdomen soft; abdomen nontender, no guarding and abdomen not rigid Skin: no rashes, warm and dry Psychiatric: Orientation: alert Affect: + irritable affect Results & Data Vital Signs (Past 12 Hours) Vital Signs Temp Pulse Resp BP Pulse Ox 05/02/19 06:56 36.7 C 90 21 159/87 H 96 05/01/19 22:35 36.7 C 86 20 144/78 H 97 Laboratory Results 05/02/19 05/02/19 05/02/19 Range/Units 05:38 05:38 05:38 WBC 14.32 H (4.8-10.8) K/uL RBC 3.85 L (4.2-5.4) M/uL Hgb 11.1 L (12.0-16.0) g/dL Hct 34.6 L (37-47) % MCV 89.9 (80-100) fL MCH 28.8 (25-34) pg MCHC 32.1 (32-36) g/dL RDW Std Deviation 50.8 H (36.4-46.3) fL RDW Coeff of Jer 15.9 H (11.5-14.5) % Plt Count 154 (130-400) K/uL MPV 11.1 H (7.4-10.4) fL APTT 59.2 H* (21.0-31.0) Seconds PTT Ratio 2.2 Creatinine 1.20 (0.6-1.2) mg/dl Est Cr Clr Drug Dosing 38.4 ml/min Est GFR ( Amer) 48.7 Est GFR (Non-Af Amer) 42.1 05/01/19 Range/Units 12:57 WBC (4.8-10.8) K/uL RBC (4.2-5.4) M/uL Hgb (12.0-16.0) g/dL Hct (37-47) % MCV (80-100) fL MCH (25-34) pg MCHC (32-36) g/dL RDW Std Deviation (36.4-46.3) fL RDW Coeff of Jer (11.5-14.5) % Plt Count (130-400) K/uL MPV (7.4-10.4) fL APTT 56.2 H* (21.0-31.0) Seconds PTT Ratio 2.1 Creatinine (0.6-1.2) mg/dl Est Cr Clr Drug Dosing ml/min Est GFR ( Amer) Est GFR (Non-Af Amer) Diagnostic Findings KUB HISTORY: assess colonic dilation COMPARISON: KUB 05/01/2019. FINDINGS: The catheter within the pelvis has been removed. Progressive dilatation within the colon which measures up to 10 cm in diameter. This favors the sigmoid colon. Multiple pelvic phleboliths are again noted. Prior cholecystectomy. No dilated loops of small bowel identified. The nasogastric tube is no longer visualized and has also been removed. No renal calculi. No ureteral calculi. No definite pneumoperitoneum or pneumatosis. IMPRESSION: Progressive dilatation of the colon which favors the sigmoid colon compared to the prior study.
--- NOTE | 2019-05-02 12:38 | Palliative Care Consultation ---
Date of Consultation May 02, 2019 Assessment & Plan (1) Goals of care, counseling/discussion: -84 year old female patient with PMH esophageal dysmotility, Parkinson's disease, gait abnormality, DM, CKD stage II, history of intracranial hemorrhage 2/2 fall, dyslipidemia, GERD, htn, diverticulitis, C. diff, and others presented to the hospital a week ago with pseudoobstruction and gaseous distension of the colon. She underwent colonoscopy with placement of rectal tube for decompression . She also had NG tube for decompression. Patient seemed to be improving clinically, but unfortunately the rectal tube coiled and kinked off. The colon distended again to 10cm. The rectal and NG tube were pulled. Patient is still not moving bowels or improving. family is making decision on whether or not to transfer to tertiary care for possible surgical options. Family requested a palliative care consult to assist with medical decision making. -Met with patient and family, including patient's partner Luis Felipe, step-daughter Claudia, daughters Jazzmine and Hiral, and patient's son/POA Fausto by phone. Patient's mental status is waxing/waning. She is not able to participate in meaningful goals of care conversation at this time. she has limited understanding of what is going on. -Spoke with patient's family outside of room. Discussed options: aggressive vs. conservative. Prior to hospitalization, patient was pretty well functionally-- ambulated with walker, oriented, lived at personal fpc but was doing fairly well. Family believes patient would at least want to know her options for aggressive treatment including surgery, but of course they'd like to avoid invasive surgery if possible. We talked about doing nothing and moving towards comfort measures-- family is not ready for this, which is reasonable considering patient did not have any end-stage conditions prior to this. Family does understand that if invasive surgery was needed, it would be extensive and could be a very difficult recovery for her. -MANAGER LIBRARY from GI team then arrived and stated they could re-do the coloscopy with rectal tube placement for decompression today. Family happy and agreed to have this procedure done. -We talked about long-term goals and patient's code status. They are going to wait for this acute event to pass, then discuss code status and patient's wishes/goal if another major event like this occurs. -Patient may still be transferred out to tertiary care after today's procedure in case she does not improve. -Thank you for this consult. If patient stays at our facility, we will follow along as needed. (2) Pseudoobstruction of colon: (3) Demand ischemia: (4) Dysphagia: History of Present Illness Reason for Consultation: Goals, medical decision making Requesting Physician: Imelda Collins PA-C Attending Physician: Jay Dos Santos History of Present Illness This 84 year old female patient with PMH esophageal dysmotility, Parkinson's disease, gait abnormality, DM, CKD stage II, history of intracranial hemorrhage 2/2 fall, dyslipidemia, GERD, htn, diverticulitis, C. diff, and others presented to the hospital a week ago with pseudoobstruction and gaseous distension of the colon. She underwent colonoscopy with placement of rectal tube for decompression. She also had NG tube for decompression. Patient seemed to be improving clinically, but unfortunately the rectal tube coiled and kinked off. The colon distended again to 10cm. The rectal and NG tube were pulled. Patient is still not moving bowels or improving. family is making decision on whether or not to transfer to tertiary care for possible surgical options. Family requested a palliative care consult to assist with medical decision making. Thank you kindly for this consult. Palliative care team will follow as needed. Allergies Allergy/AdvReac Type Severity Reaction Status Date / Time Penicillins Allergy Intermediate Unknown Verified 04/25/19 14:33 atenolol Allergy Mild UNKNOWN Verified 04/25/19 14:33 chlorthalidone Allergy Mild UNKNOWN Verified 04/25/19 14:33 atorvastatin AdvReac Mild GI SYMPTOMS Verified 04/25/19 14:33 hydrochlorothiazide AdvReac Mild GI SYMPTOMS Verified 04/25/19 14:33 naproxen AdvReac Mild GI SYMPTOMS Verified 04/25/19 14:33 amoxicillin AdvReac Unknown diarrhea Verified 04/25/19 14:33 Cipro AdvReac Unknown nausea/vomi Verified 12/29/17 07:49 ting ciprofloxacin AdvReac Unknown nausea/vomi Verified 04/25/19 14:33 ting hydrocodone AdvReac Unknown n/v loss Verified 04/25/19 14:33 of appetite Home Medications Home Medications Medication Instructions Recorded Confirmed Type acetaminophen [Tylenol Extra 1,000 mg PO TID PRN 06/30/18 04/25/19 History Strength] atorvastatin 10 mg PO QAM 06/30/18 04/25/19 History cholecalciferol (vitamin D3) 3,000 unit PO QAM 06/30/18 04/25/19 History [Vitamin D3] mometasone 2 spray INTRANASAL QAM 06/30/18 04/25/19 History cranberry 500 mg PO BID 09/02/18 04/25/19 History metoprolol succinate [Toprol XL] 25 mg PO BID 10/03/18 04/25/19 History cetirizine 5 mg PO DAILY PRN 11/12/18 04/25/19 History folic acid 1 mg PO QAM 11/12/18 04/25/19 History miscellaneous medical supply #1 ea 11/22/18 12/31/18 Rx carbidopa 25 mg-levodopa 100 mg 1 tab PO QID 90 Days #360 tab 01/15/19 04/25/19 Rx tablet mirtazapine 15 mg tablet 15 mg PO HS #30 tab 02/11/19 04/25/19 Rx potassium chloride 20 mEq 20 meq PO BID #180 tab 02/14/19 04/25/19 Rx tablet,extended release tramadol 50 mg tablet 50 mg PO HS #30 tab 03/13/19 04/25/19 Rx calcitonin (salmon) 200 units NA QAM 04/25/19 04/25/19 History cyanocobalamin (vitamin B-12) 500 mcg PO QAM 04/25/19 04/25/19 History [Vitamin B-12] furosemide [Lasix] 20 mg PO QAM 04/25/19 04/25/19 History mcosmsgk-rif-hdgu-folic-vit K1 1 tab PO QAM 04/25/19 04/25/19 History [Centrum Chewables] pantoprazole 40 mg PO QAM 04/25/19 04/25/19 History polyethylene glycol 3350 [Miralax] 17 g PO QAM 04/25/19 04/25/19 History sennosides-docusate sodium 2 tab PO QAM 04/25/19 04/25/19 History [Senokot-S] telmisartan 80 mg PO DAILY@1200 04/25/19 04/25/19 History Patient History Medical History Abnormality of lung on chest x-ray Allergic rhinitis Aortic atherosclerosis Bilateral lower extremity edema Cancer SKIN CANCER, REMOVED. Chronic back pain Chronic kidney disease Chronic osteoarthritis Confusion AT TIMES. POSSIBLE EARLY STAGES OF DEMENTIA Coronary artery calcification Cyst of ovary Daytime somnolence Diabetes mellitus Dyslipidemia Esophageal dysmotility Fibroids Fuchs' corneal dystrophy Gait apraxia GERD (gastroesophageal reflux disease) Hemorrhoid (Resolved) Hepatic steatosis Hiatal hernia History of dry mouth History of esophageal dilatation Last one 10/2017 Propofol 120mg, Lidocaine 40mg IV HTN (hypertension) (Chronic) Hydronephrosis, right Hypercholesterolemia Hyperlipidemia Hyponatremia Idiopathic polyneuropathy Limited mobility Low back pain Mild cognitive impairment Muscular weakness Osteoarthritis Osteopenia Parkinson disease Recurrent falls Schatzki's ring Tendonitis, calcific, shoulder Urinary frequency Weight loss Surgical History History of arthroscopy KNEE (UNSURE OF SIDE) History of cholecystectomy History of colonoscopy History of esophagogastroduodenoscopy (EGD) Family History Unknown Stroke syndrome Mother Cardiac disorder Daughter Malignant neoplasm of female breast Other Family history non-contributory Social History Preferred Language: Polish Communication Ability: Effective Oracle Iam Consultant Required: No Beliefs That Will Affect Care: None marital status: Life Partner Current Living Situation: Personal Care Facility Current Living Situation Comment: Lives with friend current occupational status: retired Feels Safe at Home: Yes Smoking Status: Never smoker Second Hand Exposure: No ; Hx Alcohol Use: Yes Hx Substance Use: No Review of Systems Review of Systems: Const: +generally feeling unwell ENMT: + dysphagia (reported by family) Resp: No SOB Cardio: No chest pain GI: + abdominal pain, +abdominal distension Neuro: + confusion (reported by family) Physical Exam Constitutional: no acute distress ENMT: external ear and nose normal, oropharynx normal Respiratory: normal respiratory effort; no respiratory distress Cardiovascular: Rate/Rhythm: regular rate and regular rhythm Gastrointestinal (Abdomen): Inspection/Auscultation: + abdomen distended; + abnormal bowel sounds Percussion/Palpation: abdomen soft (only mildly firm); abdomen nontender Neurologic: moves all extremities, awake and + confused Results & Data Vital Signs (Past 12 Hours) Vital Signs Temp Pulse Resp BP Pulse Ox 11/22/19 06:56 36.7 C 90 21 159/87 H 96 Time Spent Midlevel 75 minutes with >50% of the time spent at bedside with patient and family discussing condition and GOC.
[2019-05-02] MEDS ORDERED: MINERAL OIL 30 ML UDC ONE (13:27)
[2019-05-02] MEDS ORDERED: ATROPINE SULFATE 0.1 MG/ML 10ML SYR IV PRN (13:48)
[2019-05-02] MEDS ORDERED: ePHEDrine sulfate 50 MG/ML AMP IV PRN (13:48)
--- NOTE | 2019-05-02 14:30 | GI REPORT ---
Patient Name: Lety Becerra Procedure Date: 05/02/2019 1:39 PM Date of : 1935 Admit Type: Inpatient Age: 84 Gender: Female Attending MD: Marcello Bowie DO Procedure: Colonoscopy Providers: Marcello Bowie DO Referring MD: Tootie Alegria Md, Jay Dos Santos M.d., Antonieta Dockery Indications: Therapeutic procedure, Abnormal abdominal x-ray of the GI tract Medicines: Monitored Anesthesia Care Complications: No immediate complications. Estimated blood loss: Minimal. Estimated Blood Loss: Estimated blood loss was minimal. Procedure: Pre-Anesthesia Assessment: - Prior to the procedure, a History and Physical was performed, and patient medications, allergies and sensitivities were reviewed. The patient's tolerance of previous anesthesia was reviewed. - The patient is unable to give consent secondary to the patient's altered mental status. The alternatives, risks and benefits of the procedure were discussed at length with the patient's son. The patient's proxy verbalized understanding of the risks as well as the alternatives and wished to proceed with the procedure. - Pre-procedure physical examination revealed no contraindications to sedation. - ASA Grade Assessment: IV - A patient with severe systemic disease that is a constant threat to life. - After reviewing the risks and benefits, the patient was deemed in satisfactory condition to undergo the procedure. - The anesthesia plan was to use monitored anesthesia care (MAC). - Immediately prior to administration of medications, the patient was re-assessed for adequacy to receive sedatives. - The heart rate, respiratory rate, oxygen saturations, blood pressure, adequacy of pulmonary ventilation, and response to care were monitored throughout the procedure. - The physical status of the patient was re-assessed after the procedure. After I obtained informed consent, the scope was passed under direct vision. Throughout the procedure, the patient's blood pressure, pulse, and oxygen saturations were monitored continuously. The scope was introduced through the anus and advanced to the cecum, identified by the ileocecal valve. The colonoscopy was somewhat difficult due to unsatisfactory bowel prep. Findings: The digital rectal exam findings include non-thrombosed external hemorrhoids. Pertinent negatives include normal sphincter tone. The colon (entire examined portion) was moderately tortuous. A large amount of semi-liquid stool was found in the entire colon, making visualization difficult. Fluid aspiration was performed through the scope suction channel. Sample(s) were sent for bacterial cultures and Clostridium difficile. A colonic decompression tube was placed. Impression: - Non-thrombosed external hemorrhoids found on digital rectal exam. - Tortuous colon. - Stool in the entire examined colon. Fluid aspiration performed. Decompression tube placed. Recommendation: - Return patient to hospital ruff for ongoing care. - Perform a flat plate abdominal x-ray today. - 100 ml Colyte every 2 hours. Marcello Bowie D.O. Marcello Bowie, 05/02/2019 2:30:24 PM This report has been signed electronically. Note Initiated On: 05/02/2019 1:39 PM Number of Addenda: 0 I attest to the content of the Intraoperative Record and orders documented therein, exceptions below {[id number]}
--- NOTE | 2019-05-02 14:33 | Communication Note ---
Date of Service: May 02, 2019 The patient underwent colonic decompression this afternoon. We removed a large amount of the colon. A new decompression tube was placed. As this is the second decompression tube placed during this mission would recommend surgical intervention should patient continue to have evidence of colonic dilation. Recommendations Abdominal x-ray Colyte 100 mL every 2 hours via rectal tube
[2019-05-02] MEDS ORDERED: LIDOCAINE HCL 2% 2 ML VIAL/AMP(20MG/ML) INFIL ONE (14:37)
[2019-05-02] MEDS ORDERED: GLYCOPYRROLATE 0.2 MG/ML VIAL ONE (14:37)
--- NOTE | 2019-05-02 14:51 | Anesthesiology Progress Note ---
Date of Service May 02, 2019 Anesthesia Post Procedure Vital Signs Vital Signs: Temp Pulse Resp BP BP Pulse Ox 05/02/19 14:47 95 H 20 133/81 97 05/02/19 14:41 97 H 20 128/79 98 05/02/19 13:30 37 C 64 16 137/63 95 05/02/19 06:56 36.7 C 90 21 159/87 H 96 05/01/19 22:35 36.7 C 86 20 144/78 H 97 Transfer of Care Handoff Completed per policy Notes Mental Status: alert / awake / arousable Patient Amnestic to Procedure: Yes Nausea / Vomiting: adequately controlled Pain: adequately controlled Airway Patency, RR, SpO2: stable & adequate BP & HR: stable & adequate Hydration State: stable & adequate Anesthetic Complications: no major complications apparent and Pt Satisfied with anesthetic care
--- NOTE | 2019-05-02 15:16 | XRay Report ---
KUB HISTORY: post colonic decompression, new decompression tube placed COMPARISON: KUB 05/02/2019. FINDINGS: Interval placement of a rectal tube which is curled within the rectum. The tip likely termi natcharu in the expected location of the distal sigmoid colon. Interval colonic decompression. The trans verse colon measures a maximal diameter of 8.3 cm, previously measuring 10.3 cm. No renal calculi. N o ureteral calculi. Cholecystectomy. IMPRESSION: Interval improvement in the colonic distention status post placement of a rectal tube which is primar marcella looped within the rectum. Electronically signed by: Colten Brian M.D. 05/02/2019 3:15 PM
[2019-05-02] MEDS: POTASSIUM CHLORIDE 40 MEQ in D5W AND 1/2NSS 1,000 ML/1,000 ML BAG IV SCH (15:28)
--- NOTE | 2019-05-02 16:32 | Discharge Summary ---
Date of Service May 02, 2019 Admission HPI Per Admitting Provider 84-year-old female with past medical history of esophageal dysmotility, Parkinson's disease, gait abnormality, diabetes mellitus type 2, chronic kidney disease stage II, history of intracranial hemorrhage/traumatic secondary to fall, dyslipidemia, GERD, essential hypertension and previous episode of diverticulitis/C. difficile colitis. Patient came from assisted with a complaint of generalized fatigue and increased frequency of urination. Patient did have a fall on Sunday but was not injured, yesterday she had 4 episodes of diarrhea no blood or melena reported, but this morning she was unable to stand up without assistance and paramedics were called for the generalized weakness. In 2017 patient had a fall in [place] and was found to have intracranial hemorrhage no intervention was required at that time but patient was taking of aspirin. In the ED she was found to have Elevated creatinine of 2.2, last creatinine was 1.2, creatinine few months before that was 0.9. Her BUN in the ED was 63, indic ating an element of dehydration, she had a normal saturation and room air, troponin was borderline +0.06 but she denied any chest pain or any significant shortness of breath. She complained of lower abdominal pain and slight abdominal distention, CT scan showed mild thickening of the mid to inferior rectum with gaseous distention of the colon without evidence of obstruction or thickening of the rectum was suggestive of mild proctitis. In response to patient complain of frequent urination, urine analysis showed possible UTI although there was a lot of epithelial and red blood cells in the sample, but giving her symptoms she will be admitted and treated accordingly. Principal Diagnosis pseudoobstruction of colon Discharge Exam Constitutional: WD/WN, vitals as above Eyes: PERRL, conjunctivae normal, anicteric sclerae ENMT: external ear and nose normal, oropharynx normal Neck: trachea midline, no thyromegaly Respiratory: normal respiratory effort, lungs clear to auscultation Cardiovascular: RRR, no murmur, no edema Gastrointestinal (Abdomen): Inspection/Auscultation: + abdomen distended, softer, + hypoactive bowel sounds Percussion/Palpation:softer, less tender; no guarding, no rebound, Musculoskeletal: no cyanosis or clubbing, extremities motor strength 5/5 Skin: no rashes, warm and dry Neurologic: patellar DTR's 2+ bilat, sensation intact and PERRL, EOMI, accommodation nl, no face palsy, no dysarthria Psychiatric: Orientation: alert, oriented to person and cooperative; + not oriented to place and + not oriented to time Lymphatic: no cervical or axillary lymphadenopathy Discharge Data Allergies Allergy/AdvReac Type Severity Reaction Status Date / Time Penicillins Allergy Intermediate Unknown Verified 04/25/19 14:33 atenolol Allergy Mild UNKNOWN Verified 04/25/19 14:33 chlorthalidone Allergy Mild UNKNOWN Verified 04/25/19 14:33 atorvastatin AdvReac Mild GI SYMPTOMS Verified 04/25/19 14:33 hydrochlorothiazide AdvReac Mild GI SYMPTOMS Verified 04/25/19 14:33 naproxen AdvReac Mild GI SYMPTOMS Verified 04/25/19 14:33 amoxicillin AdvReac Unknown diarrhea Verified 04/25/19 14:33 Cipro AdvReac Unknown nausea/vomi Verified 12/29/17 07:49 ting ciprofloxacin AdvReac Unknown nausea/vomi Verified 04/25/19 14:33 ting hydrocodone AdvReac Unknown n/v loss Verified 04/25/19 14:33 of appetite Consultations 04/25/19 15:41 ED Decision to Admit Stat 04/27/19 09:57 Consult General Surgery Routine 04/27/19 14:14 Consult Vascular Surgery Routine 04/29/19 04:09 Consult Gastroenterology Routine 05/02/19 09:30 Consult Palliative Care Routine Procedures Performed Operation Date: 04/29/19 15:15 Actual Procedures p Colonoscopy with Decompression Tube Plac - Consuelo Mullen Operation Date: 04/30/19 13:00 <No data on this case meets the specified criteria> Operation Date: 05/02/19 16:00 Actual Procedures p Colonoscopy with Decompression Tube Plac(Not Applicable) - Marcello Bowie Ordered Studies 04/25/19 13:40 CT abd pelvis wo con Stat 04/25/19 15:26 CT chest wo con Stat 04/26/19 20:02 US venous doppler LE BI Stat 04/28/19 23:13 CT abd pelvis oral con only Urgent Hospital Course (1) Ileus: Patient was admitted with a pseudoobstruction of the colon. Patient was initaly treated for a possible ileus with an NG tube but did not improve. HR and WBC worsened and GI was consulted, patient had treatment with a colonic decompression as imaging showed colinic distention. Her abdominal remain distended, but it had decreased in size wand was no longer firm. Patient appears to be doing better, but still not passing gas or stool. Rectal tube was placed for 2 days, but appeared to be kinked and it was removed. Colon remains distended on imaging. GI recommended a second colonic decompression, however surgery feels patient will likey not improve and will likely require a colon resection. Recommended transfer to tertiary center. Family also requested transfer. will transfer patient to [facility] as no beds were available at [facility]. Patient is currently stable with alexia HR and BP. (2) DVT (deep venous thrombosis): bilateral DVT in superficial femoral, popliteal veins she does not get much activity according to her son will treat with Lovenox 1mg/kg q12 for now was placed on heprain for surgery. However for transfer will place on lovenox again. Recommend switching back to heparin once she arrives at [place] (12 hours after therapuetic dose of lovenox) unsure she would be a good half-way candidate for anticoagulation she does not even take aspirin due to h/o falls and intracranial bleed from a fall Vascular agrees with IVC filter. CTA chest on admission negative for PE IVC filter has not been placed due to possible transfer. (3) Lower abdominal pain: pain was all due to distension and ileus doubt proctitis? will continue Flagyl IV for now no relief with NGT as it is not putting out much, will monitor (4) Diarrhea: report of diarrhea prior to admission, h/o C diff no diarrhea or flatus since admission C diff order cancelled due to lack of BM (5) VELMA (acute kidney injury): Likely ATN secondary to dehydration plus telmisartan plus Lasix resolved.. (6) Hypokalemia: will continue to replace. (7) Dehydration: As above responding well to IV fluids continue fluids since she is NPO (8) UTI (urinary tract infection): Present on admission Ordered urine culture/blood culture Ceftriaxone empirically 3 organisms on urine culture no growth on blood cultures treated Ceftriaxone for 7 days total, (9) Generalized weakness: Secondary to all of the above, will order physical therapy occupational therapy and also speech for swallow evaluation (10) Parkinsonism: unfortunately we will need to hold Sinemet with ileus (11) Dysphagia: did not do well with speech therapy, recommended nectar thick liquids was not tolerating them either RN could not get medications down this morning for now she is NPO will need to re-address once ileus resolved (12) Demand ischemia: demand ischemia from tachycardia. HR DID improve after colonic decompression. Updated family who was at bedside. Total Time Total Time Spent Total Time Spent (In Minutes): 65 Total Time Includes: Examination of the Patient, Discharge Planning and Medication Reconciliation Discharge Plan Discharge Items Patient Disposition: Transfer Acute Care Hospital Reason For Visit: UTI Discharge Diagnosis: Colon pseudoobstruction Activity: Resume your previous activity Non-emergency contact: Primary Care Provider Call non-emergency contact if: you have any medication questions Follow-up/Referrals: RODERICK GILBERT [Primary Care Provider] - Diet: Regular Diet Comment: NPO. Emma Attending Provider Instructions: will be transferred to [facility]. Above medicine on hold due to pseudoobstruction Pending Studies at Discharge: No Stand-Alone Forms: My [facility] Skilled Items Patient informed of condition?: Yes DNR: No Discharge Level of Care: Other Communicable Disease: No Discharge Prognosis: Stable Lines: Peripheral IV Urinary Catheter: No Medications and DC Order Prescriptions: New peg 3350-electrolytes [Golytely] 236-22.74-6.74 -5.86 gram Recon Soln 0.4 dose [place] Q2H Qty: 0 RF: 0 Enoxaparin 1 Mg/Kg [Lovenox 1 Mg/Kg Providers Use Dosing Set] 80 mg SC Q12H Qty: 0 RF: 0 Continued (DME) miscellaneous medical supply misc See Dose Instructions .ROUTE .MEDSUPPLY Qty: 1 RF: 0 Discontinued carbidopa-levodopa 25-100 mg tablet 1 tab PO QID 90 Days Qty: 360 RF: 1 mirtazapine 15 mg tablet 15 mg PO HS Qty: 30 RF: 2 potassium chloride 20 mEq tablet extended release 20 meq PO BID Qty: 180 RF: 0 tramadol 50 mg tablet 50 mg PO HS Qty: 30 RF: 2 mometasone 50 mcg/actuation [place],Non-Aerosol 2 spray INTRANASAL QAM RF: 0 acetaminophen [Tylenol Extra Strength] 500 mg Tablet 1,000 mg PO TID PRN (Reason: pain/fever) RF: 0 cholecalciferol (vitamin D3) [Vitamin D3] 1,000 unit Tablet 3,000 unit PO QAM RF: 0 atorvastatin 10 mg Tablet 10 mg PO QAM RF: 0 cranberry 500 mg Capsule 500 mg PO BID RF: 0 metoprolol succinate [Toprol XL] 25 mg Tablet Extended Release 24 Hr 25 mg PO BID RF: 0 cetirizine 10 mg Tablet 5 mg PO DAILY PRN (Reason: Allergy Symptoms) RF: 0 folic acid 1 mg Tablet 1 mg PO QAM RF: 0 cyanocobalamin (vitamin B-12) [Vitamin B-12] 1,000 mcg Tablet 500 mcg PO QAM RF: 0 Centrum Chewables 8 mg-400 mcg- 10 mcg Tablet,Chewable 1 tab PO QAM RF: 0 polyethylene glycol 3350 [Miralax] 17 gram powder in packet 17 g PO QAM RF: 0 sennosides-docusate sodium [Senokot-S] 8.6-50 mg tablet 2 tab PO QAM RF: 0 calcitonin (salmon) 200 unit/actuation spray,non-aerosol 200 units NA QAM RF: 0 pantoprazole 40 mg tablet,delayed release (DR/EC) 40 mg PO QAM RF: 0 telmisartan 80 mg tablet 80 mg PO DAILY@1200 RF: 0 furosemide [Lasix] 20 mg tablet 20 mg PO QAM RF: 0 Discharge Orders: Discharge Order (Routine); Ordered 05/02/19 Ordered By: Jay Dos Santos Admission Data Admit Date/Time: 04/25/19 18:49 Attending Provider: Jay Dos Santos Admit Provider: Faiza Adamson Primary [facility] Other Providers: Faiza Adamson ; Radha Bowie ; Margarito Azul ; Marcello Eddy ; Daniel Boland ; Tangela Cano ; Mason Skelton ; Marcello Bowie ; Fracisco Sánchez ; Kim Solorzano ; Eulalio De La Cruz ; Luis Mack ; Vannesa Cho ; Consuelo Mullen ; Carmita Colvin ; Marie Lock ; Priscila Zafar ; Alondra,Kika H Other Interventions: Discharge Summary Assessment (RN) Last Done: 05/02/19 19:34 DC Date/Time DO NOT enter until pt leaves facility: 05/02/19 20:00
[2019-05-02] MEDS: LAVAGE SOLUTION 4000ML PR SCH ×2 (16:47→18:31)
[2019-05-02] MEDS ORDERED: ENOXAPARIN 80 MG/0.8 ML SYR SC SCH (17:00)
== END 2019-05-02 20:00 | disposition short-term general hospital (02) | DRG 391 ==
LOC: ED 11:50 → 2E 18:49 → SUATTDRO 18:49 → 2E 19:51 → 4W 04-27 09:44